=== PATIENT | male | born 1940 | race Caucasian/White ===

== ENCOUNTER → 2018-07-13 | Outpatient (CLI) | payer MEDICARE ==
[~2018-07-13] MED LIST: ASP81TEC PO; ATOR10TA PO; RAMI10CA PO
--- NOTE | 2018-07-13 13:06 | Diagnostic Imaging Report ---
INDICATION: Cough. TIME OF EXAM: 12:45 p.m. COMPARISON: Correlation is made with prior study from 11/16/2011. FINDINGS: Lungs are hyperinflated consistent with COPD. No infiltrates are seen. There is no effusion or pneumothorax. The heart size is normal. IMPRESSION: COPD. No acute feature is detected. Dictated by: Dictated on workstation # [id number]
== END ==
LOC: RAD 12:38
DX: J44.9 Chronic obstructive pulmonary disease, unspecified (principal)
CPT/HCPCS: 71046

== ENCOUNTER → 2018-07-20 | Outpatient (CLI) | payer MEDICARE | LOC: CARD 11:18 | PROVIDERS: ATTEND Internal Medicine Interventional Cardiology | DX: R42 Dizziness and giddiness (principal); R55 Syncope and collapse; R06.02 Shortness of breath; R07.89 Other chest pain; E78.5 Hyperlipidemia, unspecified; I10 Essential (primary) hypertension; Z72.0 Tobacco use | CPT/HCPCS: 93225; 93226 ==

== ENCOUNTER 2018-07-22 11:45 | Outpatient (RCR) | payer MEDICARE ==
[2018-08-27] MEDS ORDERED: ROSU40TA22 PO (10:05)
[2018-08-27] MEDS ORDERED: ETOD400T PO (10:05)
[2018-08-27] MEDS ORDERED: DIPH1TAB PO (10:05)
[2018-08-27] MEDS ORDERED: TEMA15CA PO (10:05)
[2018-08-27] MEDS ORDERED: HYDR-3820 PO (10:05)
[2018-08-27] MEDS ORDERED: CLOP75TA28 PO (10:05)
[2018-08-27] MEDS ORDERED: LISI40TA PO (10:05)
[2018-08-27] MEDS ORDERED: LOSA50TA63 PO (15:23)
[2018-08-28] MEDS ORDERED: METO-387 PO (11:39)
[2018-08-28] MEDS ORDERED: TICA90TA PO (11:39)
[2018-08-28] MEDS ORDERED: LOSA50TA63 PO (11:39)
[2018-08-28] MEDS ORDERED: ASPI-983 PO (11:39)
== END 2018-10-20 | disposition home or self-care (01) ==
LOC: CARD 11:45
PROVIDERS: ATTEND Internal Medicine Interventional Cardiology
DX: R06.02 Shortness of breath (principal); R07.89 Other chest pain; E78.5 Hyperlipidemia, unspecified; I10 Essential (primary) hypertension; R42 Dizziness and giddiness; R55 Syncope and collapse; Z72.0 Tobacco use

== ENCOUNTER → 2018-08-13 | Outpatient (CLI) | payer MEDICARE ==
[~2018-08-13] MED LIST changes: +CATHETER FLUSH 10 ML SYR IV PRN; +REGADENOSON 0.4 MG/5 ML SYR (LEXISCAN) IV ONE
[2018-08-13 09:26] VITALS: BP 199/95
--- NOTE | 2018-08-15 16:01 | Cardiology Stress Test Report ---
Stress Test Report Type of NM Stress Test: Test Type: LEXISCAN 0.4MG/5ML Date of Procedure/Referring: Date of Procedure: Aug 13, 2018 PCP Dayton Drake MD Admitting Physician Dex Covington MD Indications: Chest pressure, shortness of breath Baseline Heart Rate: 84 Baseline Blood Pressure: Blood Pressure Systolic: 199 Blood Pressure Diastolic: 95 Baseline EKG: Baseline EKG: sinus rhythm Summary & Conclusion: Summary: The patient was brought to the stress lab after informed consent was taken. Stress test was performed according to the Lexiscan protocol. 0.4 mg of IV Lexiscan was given. Low-grade exercise was performed. Baseline EKG showed sinus rhythm at 64 BPM. Initial blood pressure was 193/89 mmHg. Maximum heart rate was 84 bpm and blood pressure 172/84 mmHg. Patient did not have any ST segment changes during the stress test. Patient complained of shortness of breath and chest pain during Lexiscan infusion. 10.95 mCi of Myoview were given for rest imaging and 30.2 mCi of Myoview given for stress imaging. Transient ischemic dilatation score 1.16, EF 62 percent. Normal wall motion. Small apical reversible defect moderate intensity. fixed apical defect. Conclusion: Pharmacological stress test was negative for ischemia. Normal LV function with no wall motion abnormalities. Possible apical infarct with ulices-infarct ischemia. Dayton DRAKE MD Aug 15, 2018 16:01
== END ==
LOC: CARD 07:16
PROVIDERS: ATTEND Internal Medicine Interventional Cardiology
DX: I73.9 Peripheral vascular disease, unspecified (principal); R07.89 Other chest pain; R06.02 Shortness of breath; R55 Syncope and collapse; I65.21 Occlusion and stenosis of right carotid artery; I10 Essential (primary) hypertension; E78.5 Hyperlipidemia, unspecified; Z72.0 Tobacco use
CPT/HCPCS: 78452; 93017

== ENCOUNTER 2018-08-27 08:54 | Day surgery (SDC) | payer MEDICARE ==
[2018-08-27] VITALS (12 sets, daily range): BP systolic 160–187; BP diastolic 77–123
[~2018-08-27] VITALS: Ht 172.7 cm; Wt 72.6 kg
[~2018-08-27 08:54] MED LIST changes: -CATHETER FLUSH 10 ML SYR IV PRN; -REGADENOSON 0.4 MG/5 ML SYR (LEXISCAN) IV ONE
--- OUTSIDE RECORDS SUMMARY | 2018-08-27 08:59 | XMS REPORT | Continuity of Care Document ---
Author Author [facility] Organization [facility] Address Unknown Phone Unavailable Allergies Active Description Code Type Severity Reaction Onset Reported/Identified Relationship to Patient Clinical Status Yes No Known Drug Allergies [id number] Drug Allergy Unknown N/A 11/15/2011 Medications There is no data. 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, LUMBAR REG, W/OUT NEURO 07/17/2018 Dayton CASTILLO MD Ot R42 DIZZINESS AND GIDDINESS 07/17/2018 Dayton CASTILLO MD Ot R42 DIZZINESS AND GIDDINESS 07/17/2018 Dayton CASTILLO MD Ot R42 DIZZINESS AND GIDDINESS 07/19/2018 JOHN LARA MD Ot J44.9 CHRONIC OBSTRUCTIVE PULMONARY DISEASE, U 07/22/2018 Dayton CASTILLO MD Ot E78.5 HYPERLIPIDEMIA, UNSPECIFIED 07/22/2018 Dayton CASTILLO MD Ot I10 ESSENTIAL (PRIMARY) HYPERTENSION 07/22/2018 Dayton CASTILLO MD Ot R06.02 SHORTNESS OF BREATH 07/22/2018 Dayton CASTILLO MD Ot R07.89 OTHER CHEST PAIN 07/22/2018 Dayton CASTILLO MD Ot R42 DIZZINESS AND GIDDINESS 07/22/2018 Dayton CASTILLO MD Ot R55 SYNCOPE AND COLLAPSE 07/22/2018 Dayton CASTILLO MD Ot Z72.0 TOBACCO USE 07/22/2018 JOHN LARA MD Ot 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 07/22/2018 JOHN LARA MD Ot 793.7 NOSP (ABN) FINDINGS ON RADIOLOGICAL OT 07/22/2018 JOHN LARA MD Ot 401.9 HYPERTENSION NOS 07/22/2018 JOHN LARA MD Ot 433.10 CAROTID ARTERY OCCLUSION W O CEREBRAL IN 07/22/2018 JOHN LARA MD Ot 440.21 ATHEROSCL [place] ARTER EXTREM W INTERMIT 07/22/2018 JOHN LARA MD Ot 729.5 PAIN IN LIMB 07/22/2018 JOHN LARA MD Ot 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, LUMBAR REG, W/OUT NEURO 07/22/2018 JOHN LARA MD Ot J44.9 CHRONIC OBSTRUCTIVE PULMONARY DISEASE, U 07/22/2018 Dayton CASTILLO MD Ot E78.5 HYPERLIPIDEMIA, UNSPECIFIED 07/22/2018 Dayton CASTILLO MD Ot I10 ESSENTIAL (PRIMARY) HYPERTENSION 07/22/2018 Dayton CASTILLO MD Ot R06.02 SHORTNESS OF BREATH 07/22/2018 Dayton CASTILLO MD Ot R07.89 OTHER CHEST PAIN 07/22/2018 Dayton CASTILLO MD Ot R42 DIZZINESS AND GIDDINESS 07/22/2018 Dayton CASTILLO MD Ot R55 SYNCOPE AND COLLAPSE 07/22/2018 Dayton CASTILLO MD Ot Z72.0 TOBACCO USE 08/04/2018 JOHN LARA MD Ot J44.9 CHRONIC OBSTRUCTIVE PULMONARY DISEASE, U 08/14/2018 JOHN LARA MD Ot J44.9 CHRONIC OBSTRUCTIVE PULMONARY DISEASE, U 08/14/2018 Dayton CASTILLO MD Ot E78.5 HYPERLIPIDEMIA, UNSPECIFIED 08/14/2018 Dayton CASTILLO MD Ot I10 ESSENTIAL (PRIMARY) HYPERTENSION 08/14/2018 Dayotn CASTILLO MD Ot R06.02 SHORTNESS OF BREATH 08/14/2018 Dayton CASTILLO MD Ot R07.89 OTHER CHEST PAIN 08/14/2018 Dayton CASTILLO MD Ot R42 DIZZINESS AND GIDDINESS 08/14/2018 Dayton CASTILLO MD Ot R55 SYNCOPE AND COLLAPSE 08/14/2018 Dayton CASTILLO MD Ot Z72.0 TOBACCO USE 08/19/2018 Dayton CASTILLO MD Ot E78.5 HYPERLIPIDEMIA, UNSPECIFIED 08/19/2018 Dayton CASTILLO MD Ot I10 ESSENTIAL (PRIMARY) HYPERTENSION 08/19/2018 Dayton CASTILLO MD Ot 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 08/19/2018 Dayton CASTILLO MD Ot I73.9 PERIPHERAL VASCULAR DISEASE, UNSPECIFIED 08/19/2018 Dayton CASTILLO MD Ot R06.02 SHORTNESS OF BREATH 08/19/2018 Dayton CASTILLO MD Ot R07.89 OTHER CHEST PAIN 08/19/2018 Dayton CASTILLO MD Ot R55 SYNCOPE AND COLLAPSE 08/19/2018 Dayton CASTILLO MD Ot Z72.0 TOBACCO USE 08/19/2018 Dayton CASTILLO MD Ot E78.5 HYPERLIPIDEMIA, UNSPECIFIED 08/19/2018 Dayton CASTILLO MD Ot I10 ESSENTIAL (PRIMARY) HYPERTENSION 08/19/2018 Dayton CASTILLO MD Ot R06.02 SHORTNESS OF BREATH 08/19/2018 Dayton CASTILLO MD Ot R07.89 OTHER CHEST PAIN 08/19/2018 Dayton CASTILLO MD Ot R42 DIZZINESS AND GIDDINESS 08/19/2018 Dayton CASTILLO MD Ot R55 SYNCOPE AND COLLAPSE 08/19/2018 Dyaton CASTILLO MD Ot Z72.0 TOBACCO USE Procedures There is no data. Results There is no data. Encounters ACCT No. Visit Date/Time Discharge Status Pt. Type Provider Facility Loc./Unit Complaint [id number] 08/13/2018 07:16:00 08/13/2018 23:59:59 CLS Outpatient Dayton CASTILLO MD [facility] CARD CHEST PRESSURE,SOB, SYNCOPE,HTN [id number] 07/22/2018 11:45:00 07/22/2018 23:59:59 CLS Outpatient Dayton CASTILLO MD [facility] CARD SYNCOPE,DIZZINESS [id number] 07/20/2018 11:18:00 07/20/2018 23:59:59 CLS Outpatient Dayton CASTILLO MD [facility] CARD DIZZINESS,SYNCOPE [id number] 07/15/2018 09:11:00 07/15/2018 23:59:59 CLS Preadmit Dayton CASTILLO MD [facility] CARD SOB,CHEST PRESSURE,HTN [id number] 07/15/2018 09:09:00 07/15/2018 23:59:59 CLS Preadmit Dayton CASTILLO MD [facility] RAD CLAUDICATION [id number] 07/15/2018 09:08:00 07/15/2018 23:59:59 CLS Preadmit Dayton CASTILLO MD [facility] RAD CLAUDICATION [id number] 07/13/2018 12:38:00 07/13/2018 23:59:59 CLS Outpatient JOHN LARA MD [facility] RAD COUGH R05 [id number] 01/07/2014 09:09:00 01/07/2014 23:59:59 CLS Outpatient JOHN LARA MD [facility] RAD LOW BACK PAIN [id number] 10/26/2013 09:59:00 10/26/2013 23:59:59 CLS Outpatient JOHN LARA MD [facility] RAD HTN,BILAT LEG PAIN [id number] 09/14/2013 08:44:00 09/14/2013 23:59:59 CLS Outpatient JOHN LARA MD [facility] RAD COLON CA [id number] 07/16/2013 16:56:00 07/16/2013 23:59:59 CLS Outpatient [id number] 08/27/2018 11:00:00 PEN Preadmit JONATHAN FARRELL, Dayton LAWLER [facility] CATH CHEST PAIN,ABN NUCLEAR STRESS TEST
[2018-08-27] MEDS ORDERED: HEParin 1000 UNIT/ML (10ML VIAL) FOR BOLUS ONE ×2 (09:00→11:34)
[2018-08-27] MEDS ORDERED: LIDOCAINE 1% INJ 20 ML 20 ML VIAL ONE (09:00)
[2018-08-27] MEDS ORDERED: NS IV 1000 ML 3,000 ML ONE (09:00)
[2018-08-27] MEDS ORDERED: NS IV 1000 ML 1,000 ML IV SCH (09:03)
[2018-08-27 09:26] LABS: HEMOGLOBIN 12.7 G/DL (13.3-17.7); MEAN PLATELET VOLUME 9.1 FL (7.4-10.4); RED CELL DISTRIBUTION WIDTH 15.7 % (10.0-14.5); WHITE BLOOD COUNT 7.4 10^3/uL (4.3-11.0)
[2018-08-27 09:46] LABS: INR 0.9 (0.8-1.4); PROTHROMBIN TIME PATIENT 12.9 SEC (12.2-14.7)
[2018-08-27 09:52] LABS: ALBUMIN 4.1 GM/DL (3.2-4.5); BILIRUBIN,TOTAL 0.5 MG/DL (0.1-1.0); CALCIUM 9.5 MG/DL (8.5-10.1); CREATININE SERUM 1.34 MG/DL (0.60-1.30); POTASSIUM 4.4 MMOL/L (3.6-5.0); TOTAL PROTEIN 7.2 GM/DL (6.4-8.2)
[2018-08-27] MEDS ORDERED: HYDR-3820 PO (10:05)
[2018-08-27] MEDS ORDERED: DIPH1TAB PO (10:05)
[2018-08-27] MEDS ORDERED: TEMA15CA PO (10:05)
[2018-08-27] MEDS ORDERED: fentaNYL INJECTION 100 MCG/2 ML AMP ONE (10:05)
[2018-08-27] MEDS ORDERED: MIDAZOLAM 5 MG/5 ML (VERSED) VIAL ONE (10:05)
[2018-08-27] MEDS ORDERED: CLOP75TA28 PO (10:05)
[2018-08-27] MEDS ORDERED: ROSU40TA22 PO (10:05)
[2018-08-27] MEDS ORDERED: LISI40TA PO (10:05)
[2018-08-27] MEDS ORDERED: ETOD400T PO (10:05)
[2018-08-27] MEDS ORDERED: ADENOSINE 3 MG/1 ML (ADENOSCAN) 30ML VIAL IV ONE ×2 (10:58→11:13)
[2018-08-27] MEDS ORDERED: TICAGRELOR 90 MG TABLET (BRILINTA) PO ONE (11:31)
[2018-08-27] MEDS ORDERED: NITRO DRIP 25000 MCG/D5W 250 ML IV ONE (11:33)
--- NOTE | 2018-08-27 12:11 | Cardiac Procedure Note-CS/ASA ---
Pre-Procedure Note Pre-Op Procedure Note H&P Reviewed The H&P was reviewed, patient examined and no changes noted. Date H&P Reviewed: Aug 27, 2018 Time H&P Reviewed: 10:00 Conscious Sedation Pre-Proced Time 10:00 ASA Score 3 For ASA 3 and 4: Consider anesthesia and medical clearance. Also, for patients with a history of failed moderate sedation consider anesthesia. Airway Lungs Heart ASA score ASA 1: a normal healthy patient ASA 2: a patient with a mild systemic disease (mid diabetes, controlled hypertension, obesity ASA 3: a patient with a severe systemic disease that limits activity (angina , COPD, prior Myocardial infarction) ASA 4: a patient with an incapacitating disease that is a constant threat to life (CHF, renal failure) ASA 5: a moribund patient not expected to survive 24 hrs. (ruptured aneurysm) ASA 6: a declared brain- patient whose organs are being harvested. For emergent operations, add the letter E after the classification Mallampati Classification Grade 1 Sedation Plan Analgesia, Amnesia, Plan communicated to team members, Discussed options with patient/fam, Discussed risks with patient/fam The patient is an appropriate candidate to undergo the planned procedure, sedation, and anesthesia. The patient immediately re-assessed prior to indication. Dayton CASTILLO MD Aug 27, 2018 12:11
[2018-08-27] MEDS ORDERED: PATIENT MAY USE OWN MEDS, ALL PO SCH (12:15)
--- NOTE | 2018-08-27 12:20 | Coronary Angiography & PCI ---
Coronary Angiography & PCI DATE OF PROCEDURE: 08/27/18 INDICATION: Chest pain, abnormal nuclear stress test. PREOPERATIVE DIAGNOSIS: Chest pain, abnormal nuclear stress test. POSTOPERATIVE DIAGNOSIS: Severe mid LAD disease, successful PCI with drug-eluting stent. Mild to moderate PAD. HISTORY: This is a 78-year-old gentleman with history of mild to moderate carotid disease and possible right iliac/femoral artery stenosis. He presented with chest pain and nuclear stress test showed evidence of apical ischemia. Therefore, the patient was scheduled for coronary angiography. 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 PROCEDURES PERFORMED: 1.Coronary angiography. 2.Left heart catheterization. 3.FFR to mid LAD. 4. FFR to RCA. 5. PCI to the mid LAD with drug-eluting stent. 6. Abdominal aortogram with bilateral lower extremity runoff. COMPLICATIONS: None. SPECIMENS: None. ESTIMATED BLOOD LOSS: 10 mL ANESTHESIA: Conscious sedation ANTICOAGULATION: IV heparin CONTRAST: 114 mL. FLUOROSCOPY: 15.3 minutes. FLOUROSCOPY DOSE: 587 mgy. PROCEDURE DETAILS: The patient is a 78 male and was brought to the catheter builder after informed consent was taken. All the risks and complications were explained in detail; this included the risk of bleeding, vascular damage, stroke , ME and even . The patient was draped and prepped in the usual sterile fashion. Geronimo's test was abnormal therefore access was gained in the right femoral artery with a 5 Welsh sheath. We had moderate difficulty advancing a J -tipped wire. We exchanged for a storq wire. Therefore we decided to do an abdominal aortogram with bilateral lower extremity runoff. Coronary angiography and left heart catheterization with a JR4 and a JL4 catheter. Abdominal aortogram and bilateral lower extremity runoff was performed with a pigtail catheter. FINDINGS: 1.Left main: Short left main with no significant stenosis. 2.LAD: Moderate to severe mid LAD stenosis. Stenosis severity 70-80 percent. 3.Left circumflex artery: Mild diffuse disease. 4.RCA: Diffuse at least moderate disease in the proximal and mid section of the RCA. In the midsegment of the RCA the lesion looks moderate to severe with stenosis severity of 70 percent. Dominant artery. 5.Left heart catheterization: LV pressure 157/1 mmHg. LVEDP 11 mmHg. Aortic pressure 146/65 mmHg. Normal LV function with no wall motion abnormalities. No gradient across the aortic valve. 6. Abdominal aortogram and bilateral lower extremity runoff: Mild diffuse disease in the abdominal aorta. Nonselective angiogram of the renal arteries show no significant disease. Tortuous right common iliac artery with calcification and mild disease. Stenosis severity 30 percent with gradient of 5 mmHg. Mild disease in the mid right SFA. Moderate disease in the distal left SFA. RECOMMENDATIONS: FFR to the mid LAD. FFR to proximal/mid RCA. PCI to mid LAD. INTERVENTION DETAILS: We used the 5 Welsh diagnostic JL4 for the FFR to the mid LAD. The lesion in the mid LAD was crossed with the FFR wire. Heparin was given for anticoagulation. ACT was done once which was 200 seconds. Baseline FFR was 0.91. Adenosine was given as an infusion at 140 g per KG per minute. Lowest FFR was 0.76. Post-angiogram did not show any complication. We upgraded to a 6 Welsh sheath. 6 Welsh JR4 guide catheter for FFR to the RCA. The lesion in the proximal/mid RCA was crossed with a FFR wire and the tip of the FFR wire was placed in the distal RCA. Adenosine was given as an infusion at 140 g per KG per minute. Lowest FFR was 0.86. Post-angiogram did not show any complication. Since this FFR is acceptable therefore PCI was deferred. We then took a JR4 6 Welsh guide catheter and BMW wire. The lesion in the mid LAD was crossed with the BMW wire and direct stenting was done with a 2.5 x 33 millimeter Xience Ellen BLANCA at 14 andrew for 30 seconds. Excellent post angiographic results. Mild pinching off a diagonal artery noted. However SONIA- 3 flow with no EKG changes and no chest pain therefore left alone. The wire was taken out and post-angiogram revealed no residual stenosis and SONIA-3 flow. The right femoral artery was closed with a minx device. CONCLUSIONS: 1. Severe mid LAD stenosis treated successfully with a drug-eluting stent. 2. At least moderate diffuse disease in the RCA with negative FFR therefore PCI was deferred. 3. Dual antiplatelet therapy, aggressive secondary prevention measures. 4. [id number] bilateral PAD. Diane Drake MD, FACP, FACC, [facility] Interventional Cardiology Dayton DRAKE MD Aug 27, 2018 12:20 pm
[2018-08-27] MEDS ORDERED: LOSA50TA63 PO (15:23)
[2018-08-27] MEDS ORDERED: ATROPINE PO PRN (15:30)
[2018-08-27] MEDS ORDERED: DIPHENOXYLATE HCL PO PRN (15:30)
[2018-08-27] MEDS ORDERED: amLODIPine 5 MG (NORVASC) TAB PO NR (15:39)
[2018-08-27] MEDS: NS IV 1000 ML 1,000 ML IV SCH ×2 (15:44→18:20)
[2018-08-27] MEDS ORDERED: TEMAZEPAM 15 MG (RESTORIL) CAP PO PRN (16:00)
[2018-08-27] MEDS ORDERED: LOSARTAN 50 MG (COZAAR) TAB PO ONE (21:15)
[2018-08-27] MEDS: TICAGRELOR 90 MG TABLET (BRILINTA) PO SCH (21:40)
[2018-08-28] VITALS: BP 179/98
[2018-08-28 01:00] VITALS: BP 168/87
[2018-08-28 02:00] VITALS: BP 176/90
[2018-08-28 04:00] VITALS: BP 160/89
[2018-08-28 04:21] LABS: HEMOGLOBIN 11.6 G/DL (13.3-17.7); MEAN PLATELET VOLUME 9.8 FL (7.4-10.4); RED CELL DISTRIBUTION WIDTH 15.4 % (10.0-14.5); WHITE BLOOD COUNT 8.5 10^3/uL (4.3-11.0)
[2018-08-28 04:36] LABS: BUN/CREATININE RATIO 15; CALCIUM 8.6 MG/DL (8.5-10.1); CARBON DIOXIDE 22 MMOL/L (21-32); CHLORIDE 104 MMOL/L (98-107); CREATININE SERUM 1.14 MG/DL (0.60-1.30); GFR ESTIMATED > 60; GLUCOSE 87 MG/DL (70-105); POTASSIUM 4.5 MMOL/L (3.6-5.0); SODIUM 136 MMOL/L (135-145)
[2018-08-28] MEDS: TICAGRELOR 90 MG TABLET (BRILINTA) PO SCH (08:18)
[2018-08-28] MEDS: NS IV 1000 ML 1,000 ML IV SCH (08:31)
[2018-08-28] MEDS ORDERED: ROSUVASTATIN 40MG TABLET PO SCH (09:00)
[2018-08-28] MEDS ORDERED: ASPIRIN E.C. 81 MG (ECOTRIN) TAB PO SCH (09:00)
[2018-08-28] MEDS ORDERED: LOSARTAN 50 MG (COZAAR) TAB PO SCH (09:00)
--- NOTE | 2018-08-28 11:36 | Cardiology Discharge Summary ---
Diagnosis/Chief Complaint Date of Admission 08/27/2018 Date of Discharge 08/28/2018 Admission Diagnosis Chest pain, abnormal nuclear stress test, possible PAD Final/Discharge Diagnosis Severe LAD stenosis, successful PCI with drug-eluting stent. [id number] PAD Chief Complaint/HPI Chief Complaint/HPI This is a 78-year-old gentleman with history of mild carotid disease and possible stenosis in the right femoral/iliac artery. He presented with chest pain and a stress test showed evidence of apical ischemia. Coronary angiography was recommended. Discharge Summary Procedures Coronary angiography showed moderate to severe stenosis in the mid RCA and moderate to severe stenosis in the mid LAD. FFR in the LAD was 0.76 therefore drug-eluting stent Xience Alpine 2.25 x 33 mm was placed at 14 andrew. Excellent results. FFR of mid RCA was 0.86 therefore PCI was deferred. Peripheral angiogram showed mild disease in the right external iliac artery with tortuosity. Moderate disease in the distal left SFA. Discharge Physical Examination Stable. Hospital Course Was the Problem List Reviewed?: Yes Elevated blood pressure, increase dose of losartan and one-time dose of amlodipine given. Discussion & Recommendations Discussion Discharge instructions discussed at length with the patient and . The procedure and the results were also discussed at length. Medical compliance was recommended with dual antiplatelet therapy. Discharge took over 30 minutes to complete. Will increase her dose of losartan 200 mg daily and add low dose beta manuel. Patient will continue on aspirin, Brilinta and Crestor. Follow up appt.: Dr. Drake in 2-3 weeks. Dicharge Diet: Cardiac Diet Activity as Tolerated: Yes Home Medications Reviewed patient Home Medication Reconciliation performed by pharmacy medication reconciliations instrumentation technician and/or nursing. Patients Allergies have been reviewed. Discharge Home Medications: Reviewed and agree with Discharge Medication list on patient's Discharge Instruction sheet Condition at discharge Stable. Instructions to patient/family Discussed at length. Dayton DRAKE MD Aug 28, 2018 11:36
[2018-08-28] MEDS ORDERED: TICA90TA PO (11:39)
[2018-08-28] MEDS ORDERED: ASPI-983 PO (11:39)
[2018-08-28] MEDS ORDERED: METO-387 PO (11:39)
[2018-08-28] MEDS ORDERED: LOSA50TA63 PO (11:39)
--- NOTE | 2018-08-28 11:40 | Discharge Inst-Post CATH ---
Discharge Inst-CATH/EP Post Cardiac Cath/EP D/C Inst Follow Up/Plan Dr. Drake in 3-4 weeks. CARDIAC CATH DISCHARGE INSTRUCTIONS *Hold Metformin for 48 hours post heart cath. ACTIVITY * Go Home directly and rest. * Limit activity of the leg (or wrist if it was used) for 7 days including aerobics, swimming, jogging, bicycling, etc. * Restrict stair-climbing for 7 days if possible, if not, climb up with your non -cath leg, then bring together on the same step. * Avoid lifting, pushing, pulling or excessive movement of the affected extremity for 7 days. * Customary sexual activity may be resumed after 2 days-use caution not to use a position that strains or causes pain to the affected extremity. * No driving for 24 hours. * NO SMOKING. * Avoid straining for bowel movements for 7 days. * Gentle walking on level ground is allowed. * Returning to work will depend on the type of procedure and the results. Your doctor will discuss this with you. CALL YOUR DOCTOR FOR ANY OF THE FOLLOWING: *If bleeding from the puncture site occurs- Apply gentle pressure to site with clean cloth and call your doctor or EMS. * If a knot or lump forms under the skin, increases in size, or causes pain. * If bruising appears to be worsening or moving further down your leg instead of disappearing. * Temperature above 101 F. CARE OF YOUR GROIN INCISION; * Bruising or purple discoloration of the skin near the puncture site is common. * You may shower only, no bathtub bathing for 5 days. Be careful to avoid slipping as your leg may feel stiff. * If a closure device was used on your femoral artery, please see the attached guide regarding care of the device and your leg. * Leave the dressing on, until removed by office staff. CARE OF YOUR WRIST INCISION; * Bruising or purple discoloration of the skin near the puncture site is common. * You may shower. * DO NOT submerge wrist. * Leave dressing on, until removed by office staff.. Dayton DRAKE MD Aug 28, 2018 11:40
[2018-08-29] MEDS ORDERED: LOSARTAN 100 MG (COZAAR) TABLET PO SCH (09:00)
== END 2018-08-28 11:53 | disposition home or self-care (01) ==
LOC: CATH 08:54 → ICU 12:28 → CATH 08-28 11:53
PROVIDERS: ATTEND Internal Medicine Interventional Cardiology
DX: I25.10 Atherosclerotic heart disease of native coronary artery without angina pectoris (principal); I70.213 Atherosclerosis of native arteries of extremities with intermittent claudication, bilateral legs; I70.0 Atherosclerosis of aorta; I10 Essential (primary) hypertension; E78.5 Hyperlipidemia, unspecified; I65.21 Occlusion and stenosis of right carotid artery; F17.210 Nicotine dependence, cigarettes, uncomplicated; R55 Syncope and collapse; R42 Dizziness and giddiness; R05 Cough; Z86.73 Personal history of transient ischemic attack (TIA), and cerebral infarction without residual deficits; Z79.02 Long term (current) use of antithrombotics/antiplatelets; Z79.82 Long term (current) use of aspirin; Z79.899 Other long term (current) drug therapy
CPT/HCPCS: 36415; 80048; 80053; 85027; 85347; 85610; 85730; 87081; 93005; 93458

== ENCOUNTER 2018-09-21 10:12 | Emergency (ER) | payer MEDICARE ==
[~2018-09-21] VITALS: Ht 172.7 cm; Wt 72.6 kg
[~2018-09-21 10:12] MED LIST changes: +ASPI-983 PO; +CLOP75TA28 PO; +DIPH1TAB PO; +ETOD400T PO; +HYDR-3820 PO; +LISI40TA PO; +LOSA50TA63 PO; +METO-387 PO; +ROSU40TA22 PO; +TEMA15CA PO; +TICA90TA PO
--- OUTSIDE RECORDS SUMMARY | 2018-09-21 10:35 | XMS REPORT | Continuity of Care Document ---
Author Organization Unknown Address Unknown Allergies Active Description Code Type Severity Reaction Onset Reported/Identified Relationship to Patient Clinical Status Yes No Known Drug Allergies [id number] Drug Allergy Unknown N/A 11/15/2011 Medications There is no data. 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, LUMBAR REG, W/OUT NEURO 07/17/2018 Dayton CASTILLO MD Ot R42 DIZZINESS AND GIDDINESS 07/17/2018 Dayton CASTILLO MD Ot R42 DIZZINESS AND GIDDINESS 07/17/2018 Dayton CASTILLO MD, Ot R42 DIZZINESS AND GIDDINESS 07/19/2018 JOHN LARA MD Ot J44.9 CHRONIC OBSTRUCTIVE PULMONARY DISEASE, U 07/22/2018 Dayton CASTILLO MD Ot E78.5 HYPERLIPIDEMIA, UNSPECIFIED 07/22/2018 Dayton CASTILLO MD Ot I10 ESSENTIAL (PRIMARY) HYPERTENSION 07/22/2018 Dayton CASTILLO MD Ot R06.02 SHORTNESS OF BREATH 07/22/2018 Dayton CASTILLO MD Ot R07.89 OTHER CHEST PAIN 07/22/2018 Dayton CASTILLO MD Ot R42 DIZZINESS AND GIDDINESS 07/22/2018 Dayton CASTILLO MD, Ot R55 SYNCOPE AND COLLAPSE 07/22/2018 Dayton CASTILLO MD, Ot Z72.0 TOBACCO USE 07/22/2018 JANE FARRELL, JOHN Pedraza Ot 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 07/22/2018 JOHN LARA MD Ot 793.7 NOSP (ABN) FINDINGS ON RADIOLOGICAL OT 07/22/2018 JOHN LARA MD Ot 401.9 HYPERTENSION NOS 07/22/2018 JANE FARRELL, JOHN Pedraza Ot 433.10 CAROTID ARTERY OCCLUSION W O CEREBRAL IN 07/22/2018 JOHN LARA MD Ot 440.21 ATHEROSCL [place] ARTER EXTREM W INTERMIT 07/22/2018 JOHN LARA [...] MD Ot I10 ESSENTIAL (PRIMARY) HYPERTENSION 08/14/2018 Dayton CASTILLO MD Ot R06.02 SHORTNESS OF BREATH 08/14/2018 JONATHAN FARRELL, Dayton LAWLER Ot R07.89 OTHER CHEST PAIN 08/14/2018 Dayton CASTILLO MD Ot R42 DIZZINESS AND GIDDINESS 08/14/2018 Dayton CASTILLO MD Ot R55 SYNCOPE AND COLLAPSE 08/14/2018 Dayton CASTILLO MD Ot Z72.0 TOBACCO USE 08/19/2018 Dayton CASTILLO MD Ot E78.5 HYPERLIPIDEMIA, UNSPECIFIED 08/19/2018 Dayton CASTILLO MD Ot I10 ESSENTIAL (PRIMARY) HYPERTENSION 08/19/2018 Dayton CASTILLO MD Ot 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 08/19/2018 Dyaton CASTILLO MD Ot I73.9 PERIPHERAL VASCULAR DISEASE, [...] Dayton CASTILLO MD Ot Z72.0 TOBACCO USE 08/27/2018 JOHN LARA MD Ot 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 08/27/2018 JOHN LARA MD Ot 793.7 NOSP (ABN) FINDINGS ON RADIOLOGICAL OT 08/27/2018 JOHN LARA MD Ot 401.9 HYPERTENSION NOS 08/27/2018 JOHN LARA MD Ot 433.10 CAROTID ARTERY OCCLUSION W O CEREBRAL IN 08/27/2018 JOHN LARA MD Ot 440.21 ATHEROSCL [place] ARTER EXTREM W INTERMIT 08/27/2018 JOHN LARA MD Ot 729.5 PAIN IN LIMB 08/27/2018 JOHN LARA MD Ot 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, LUMBAR REG, W/OUT NEURO 08/27/2018 JOHN LARA MD Ot J44.9 CHRONIC OBSTRUCTIVE PULMONARY DISEASE, U 08/27/2018 Dayton CASTILLO MD Ot E78.5 HYPERLIPIDEMIA, UNSPECIFIED 08/27/2018 Dayton CASTILLO MD Ot I10 ESSENTIAL (PRIMARY) HYPERTENSION 08/27/2018 Dayton CASTILLO MD Ot 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 08/27/2018 Dayton CASTILLO MD Ot I73.9 PERIPHERAL VASCULAR DISEASE, UNSPECIFIED 08/27/2018 Dayton CASTILLO MD Ot R06.02 SHORTNESS OF BREATH 08/27/2018 Dayton CASTILLO MD Ot R07.89 OTHER CHEST PAIN 08/27/2018 Dayton CASTILLO MD Ot R55 SYNCOPE AND COLLAPSE 08/27/2018 Dayton CASTILLO MD Ot Z72.0 TOBACCO USE 08/27/2018 Dayton CASTILLO MD Ot E78.5 HYPERLIPIDEMIA, UNSPECIFIED 08/27/2018 Dayton CASTILLO MD Ot I10 ESSENTIAL (PRIMARY) HYPERTENSION 08/27/2018 Dayton CASTILLO MD Ot R06.02 SHORTNESS OF BREATH 08/27/2018 Dayton CASTILLO MD Ot R07.89 OTHER CHEST PAIN 08/27/2018 Dayton CASTILLO MD Ot R42 DIZZINESS AND GIDDINESS 08/27/2018 Dayton CASTILLO MD Ot R55 SYNCOPE AND COLLAPSE 08/27/2018 Dayton CASTILLO MD Ot Z72.0 TOBACCO USE 08/27/2018 Dayton CASTILLO MD Ot E78.5 HYPERLIPIDEMIA, UNSPECIFIED 08/27/2018 Dayton CASTILLO MD Ot I10 ESSENTIAL (PRIMARY) HYPERTENSION 08/27/2018 Dayton CASTILLO MD Ot R06.02 SHORTNESS OF BREATH 08/27/2018 Dayton CASTILLO MD Ot R07.89 OTHER CHEST PAIN 08/27/2018 Dayton CASTILLO MD Ot R42 DIZZINESS AND GIDDINESS 08/27/2018 Dayton CASTILLO MD Ot R55 SYNCOPE AND COLLAPSE 08/27/2018 Dayton CASTILLO MD Ot Z72.0 TOBACCO USE 08/28/2018 Dayton CASTILLO MD Ot E78.5 HYPERLIPIDEMIA, UNSPECIFIED 08/28/2018 Dayton CASTILLO MD Ot F17.210 NICOTINE DEPENDENCE, CIGARETTES, UNCOMPL 08/28/2018 Dayton CASTILLO MD Ot I10 ESSENTIAL (PRIMARY) HYPERTENSION 08/28/2018 Dayton CASTILLO MD Ot I25.10 ATHSCL HEART DISEASE OF [place] CORONARY 08/28/2018 Dayton CASTILLO MD Ot 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 08/28/2018 Dayton CASTILLO MD Ot I70.0 ATHEROSCLEROSIS OF [place] 08/28/2018 Dayton CASTILLO MD Ot I70.213 ATHSCL [place] ARTERIES OF EXTRM W INTRMT 08/28/2018 Dayton CASTILLO MD Ot R05 COUGH 08/28/2018 Dayton CASTILLO MD Ot R42 DIZZINESS AND GIDDINESS 08/28/2018 Dayton CASTILLO MD Ot R55 SYNCOPE AND COLLAPSE 08/28/2018 Dayton CASTILLO MD Ot Z79.02 ASSISTED (CURRENT) USE OF ANTITHROMBOTI 08/28/2018 Dayton CASTILLO MD Ot Z79.82 REGISTRATION REPRESENTATIVE (CURRENT) USE OF ASPIRIN 08/28/2018 Dayton CASTILLO MD, Ot Z79.899 OTHER REGISTRATION REPRESENTATIVE (CURRENT) DRUG THERAPY 08/28/2018 Dayton CASTILLO MD Ot Z86.73 PRSNL HX OF TIA (TIA), AND CEREB INFRC W 08/28/2018 Dayton CASTILLO MD Ot E78.5 HYPERLIPIDEMIA, UNSPECIFIED 08/28/2018 Dayton CASTILLO MD Ot F17.210 NICOTINE DEPENDENCE, CIGARETTES, UNCOMPL 08/28/2018 Dayton CASTILLO MD Ot I10 ESSENTIAL (PRIMARY) HYPERTENSION 08/28/2018 Dayton CASTILLO MD Ot I25.10 ATHSCL HEART DISEASE OF [place] CORONARY 08/28/2018 Dayton CASTILLO MD Ot 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 08/28/2018 Dayton CASTILLO MD Ot I70.0 ATHEROSCLEROSIS OF [place] 08/28/2018 Dayton CASTILLO MD Ot I70.213 ATHSCL [place] ARTERIES OF EXTRM W INTRMT 08/28/2018 Dayton CASTILLO MD Ot R05 COUGH 08/28/2018 Dayton CASTILLO MD Ot R42 DIZZINESS AND GIDDINESS 08/28/2018 Dayton CASTILLO MD Ot R55 SYNCOPE AND COLLAPSE 08/28/2018 Dayton CASTILLO MD Ot Z79.02 REGISTRATION REPRESENTATIVE (CURRENT) USE OF ANTITHROMBOTI 08/28/2018 Dayton CASTILLO MD Ot Z79.82 REGISTRATION REPRESENTATIVE (CURRENT) USE OF ASPIRIN 08/28/2018 Dayton CASTILLO MD Ot Z79.899 OTHER REGISTRATION REPRESENTATIVE (CURRENT) DRUG THERAPY 08/28/2018 Dayton CASTILLO MD Ot Z86.73 PRSNL HX OF TIA (TIA), AND CEREB INFRC W 09/02/2018 Dayton CASTILLO MD Ot E78.5 HYPERLIPIDEMIA, UNSPECIFIED 09/02/2018 Dayton CASTILLO MD Ot I10 ESSENTIAL (PRIMARY) HYPERTENSION 09/02/2018 Dayton CASTILLO MD Ot 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 09/02/2018 Dayton CASTILLO MD Ot I73.9 PERIPHERAL VASCULAR DISEASE, UNSPECIFIED 09/02/2018 Dayton CASTILLO MD Ot R06.02 SHORTNESS OF BREATH 09/02/2018 Dayton CASTILLO MD Ot R07.89 OTHER CHEST PAIN 09/02/2018 Dayton CASTILLO MD Ot R55 SYNCOPE AND COLLAPSE 09/02/2018 Dayton CASTILLO MD Ot Z72.0 TOBACCO USE 09/11/2018 Dayton CASTILLO MD Ot E78.5 HYPERLIPIDEMIA, UNSPECIFIED 09/11/2018 Dayton CASTILLO MD Ot I10 ESSENTIAL (PRIMARY) HYPERTENSION 09/11/2018 Dayton CASTILLO MD Ot 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 Results Test Result Range Automated blood complete blood count (hemogram) panel - 08/27/18 09:00 Blood leukocytes automated count (number/volume) 7.4 10*3/uL 4.3-11.0 Blood erythrocytes automated count (number/volume) 4.11 10*6/uL 4.35-5.85 Venous blood hemoglobin measurement (mass/volume) 12.7 g/dL 13.3-17.7 Blood hematocrit (volume fraction) 38 % 40-54 Automated erythrocyte mean corpuscular volume 93 [foz_us] 80-99 Automated erythrocyte mean corpuscular hemoglobin (mass per erythrocyte) 31 pg 25-34 Automated erythrocyte mean corpuscular hemoglobin concentration measurement ( mass/volume) 33 g/dL 32-36 Automated erythrocyte distribution width ratio 15.7 % 10.0-14.5 Automated blood platelet count (count/volume) 195 10*3/uL 130-400 Automated blood platelet mean volume measurement 9.1 [foz_us] 7.4-10.4 PT panel in platelet poor plasma by coagulation assay - 08/27/18 09:00 Prothrombin time (PT) in platelet poor plasma by coagulation assay 12.9 s 12.2-14.7 INR in platelet poor plasma or blood by coagulation assay 0.9 0.8-1.4 Activated partial thromboplastin time (aPTT) in platelet poor plasma bycoagulation assay - 08/27/18 09:00 Activated partial thromboplastin time (aPTT) in platelet poor plasma bycoagulation assay 28 s 24-35 Comprehensive metabolic panel - 08/27/18 09:00 Serum or plasma sodium measurement (moles/volume) 138 mmol/L 135-145 Serum or plasma potassium measurement (moles/volume) 4.4 mmol/L 3.6-5.0 Serum or plasma chloride measurement (moles/volume) 104 mmol/L 98-107 Carbon dioxide 28 mmol/L 21-32 Serum or plasma anion gap determination (moles/volume) 6 mmol/L 5-14 Serum or plasma urea nitrogen measurement (mass/volume) 19 mg/dL 7-18 Serum or plasma creatinine measurement (mass/volume) 1.34 mg/dL 0.60-1.30 Serum or plasma urea nitrogen/creatinine mass ratio 14 NRG Serum or plasma creatinine measurement with calculation of estimated glomerular filtration rate 52 NRG Serum or plasma glucose measurement (mass/volume) 94 mg/dL 70-105 Serum or plasma calcium measurement (mass/volume) 9.5 mg/dL 8.5-10.1 Serum or plasma total bilirubin measurement (mass/volume) 0.5 mg/dL 0.1-1.0 Serum or plasma alkaline phosphatase measurement (enzymatic activity/volume) 99 U/L 40-136 Serum or plasma aspartate aminotransferase measurement (enzymatic activity/ volume) 22 U/L 5-34 Serum or plasma alanine aminotransferase measurement (enzymatic activity/volume ) 19 U/L 0-55 Serum or plasma protein measurement (mass/volume) 7.2 g/dL 6.4-8.2 Serum or plasma albumin measurement (mass/volume) 4.1 g/dL 3.2-4.5 CALCIUM CORRECTED 9.4 mg/dL 8.5-10.1 Methicillin resistant Staphylococcus aureus (MRSA) screening culture - 09:00 Methicillin resistant Staphylococcus aureus (MRSA) screening culture NEG NRG Automated blood complete blood count (hemogram) panel - 08/28/18 03:30 Blood leukocytes automated count (number/volume) 8.5 10*3/uL 4.3-11.0 Blood erythrocytes automated count (number/volume) 3.82 10*6/uL 4.35-5.85 Venous blood hemoglobin measurement (mass/volume) 11.6 g/dL 13.3-17.7 Blood hematocrit (volume fraction) 35 % 40-54 Automated erythrocyte mean corpuscular volume 92 [foz_us] 80-99 Automated erythrocyte mean corpuscular hemoglobin (mass per erythrocyte) 30 pg 25-34 Automated erythrocyte mean corpuscular hemoglobin concentration measurement ( mass/volume) 33 g/dL 32-36 Automated erythrocyte distribution width ratio 15.4 % 10.0-14.5 Automated blood platelet count (count/volume) 174 10*3/uL 130-400 Automated blood platelet mean volume measurement 9.8 [foz_us] 7.4-10.4 Whole blood basic metabolic panel - 08/28/18 03:30 Serum or plasma sodium measurement (moles/volume) 136 mmol/L 135-145 Serum or plasma potassium measurement (moles/volume) 4.5 mmol/L 3.6-5.0 Serum or plasma chloride measurement (moles/volume) 104 mmol/L 98-107 Carbon dioxide 22 mmol/L 21-32 Serum or plasma anion gap determination (moles/volume) 10 mmol/L 5-14 Serum or plasma urea nitrogen measurement (mass/volume) 17 mg/dL 7-18 Serum or plasma creatinine measurement (mass/volume) 1.14 mg/dL 0.60-1.30 Serum or plasma urea nitrogen/creatinine mass ratio 15 NRG Serum or plasma creatinine measurement with calculation of estimated glomerular filtration rate > NRG Serum or plasma glucose measurement (mass/volume) 87 mg/dL 70-105 Serum or plasma calcium measurement (mass/volume) 8.6 mg/dL 8.5-10.1 Encounters ACCT No. Visit Date/Time Discharge Status Pt. Type Provider Facility Loc./Unit Complaint [id number] 08/27/2018 08:54:00 08/28/2018 11:53:00 DIS Outpatient Dayton CASTILLO MD [facility] CATH CHEST PAIN,ABN NUCLEAR STRESS TEST [id number] 08/13/2018 07:16:00 08/13/2018 23:59:59 CLS Outpatient Dayton CASTILLO MD [facility] CARD CHEST PRESSURE,SOB, SYNCOPE,HTN [id number] 07/22/2018 11:45:00 07/22/2018 23:59:59 CLS Outpatient Dayton CASTILLO MD [facility] CARD SYNCOPE,DIZZINESS [id number] 07/20/2018 11:18:00 07/20/2018 23:59:59 CLS Outpatient Dayton CASTILLO MD [facility] CARD DIZZINESS,SYNCOPE [id number] 07/15/2018 09:11:00 07/15/2018 23:59:59 CLS Preadmit Dayton CASTILLO MD [facility] CARD SOB,CHEST PRESSURE,HTN [id number] 07/15/2018 09:09:00 07/15/2018 23:59:59 CLS Preadmit Dayton CASTILLO MD [facility] RAD CLAUDICATION [id number] 07/15/2018 09:08:00 07/15/2018 23:59:59 CLS Preadmit Dayton CASTILLO MD [facility] RAD CLAUDICATION [id number] 07/13/2018 12:38:00 07/13/2018 23:59:59 CLS Outpatient JOHN LARA MD [facility] RAD COUGH R05 [id number] 01/07/2014 09:09:00 01/07/2014 23:59:59 CLS Outpatient JOHN LARA MD [facility] RAD LOW BACK PAIN [id number] 10/26/2013 09:59:00 10/26/2013 23:59:59 CLS Outpatient JOHN LARA MD [facility] RAD HTN,BILAT LEG PAIN [id number] 09/14/2013 08:44:00 09/14/2013 23:59:59 CLS Outpatient JOHN LARA MD [facility] RAD COLON CA [id number] 07/16/2013 16:56:00 07/16/2013 23:59:59 CLS Outpatient [id number] 09/21/2018 10:13:00 ACT Emergency PARDEEP BOSE MD [facility] ER LACERATION ON FINGER
[2018-09-21] MEDS ORDERED: LIDOCAINE 1% INJ 20 ML 20 ML VIAL ONE (10:50)
--- NOTE | 2018-09-21 11:24 | ED Upper Extremity ---
General Chief Complaint: Laceration Stated Complaint: LACERATION ON FINGER Nursing Triage Note: Pt presents with about 1 inch laceration to right index finger. pt was pulling glass dishes out of scientific director lastnight and cut finger. reports placing bandage and pressure on finger last night but is still bleeding heavily. pt is on two blood thinners. Nursing Sepsis Screen: No Definite Risk Source: patient, family History of Present Illness Date Seen by Provider: Sep 21, 2018 Time Seen by Provider: 11:19 Initial Comments This 78-year-old white male presents after sustaining laceration to his right ring finger last night as he was emptying dishware out of his scientific director. The patient denies loss of sensation or range of motion affected digit. He has had continued bleeding precipitating his presentation to the emergency department. Patient believes that his tetanus immunizations are up-to-date Allergies and Home Medications Allergies Coded Allergies: No Known Drug Allergies (Unverified , 11/15/11) Home Medications Aspirin 81 Mg Tablet.dr, 81 MG PO DAILY Prescribed by: Dayton CASTILLO on 08/28/18 1139 Diphenoxylate HCl/Atropine 1 Each Tablet, 1 EACH PO DAILY PRN PRN for ABDOMINAL PAIN, (Reported) Etodolac 400 Mg Tablet, 400 MG PO for BACK PAIN, (Reported) Hydrocodone/Acetaminophen 1 Each Tablet, 1 TAB PO Q6H PRN for PAIN-MODERATE, ( Reported) Losartan Potassium 50 Mg Tablet, 100 MG PO DAILY Prescribed by: Dayton CASTILLO on 08/28/18 1139 Metoprolol Succinate 25 Mg Tab.er.24h, 25 MG PO DAILY Prescribed by: Dayton CASTILLO on 08/28/18 1139 Rosuvastatin Calcium 40 Mg Tablet, 40 MG PO DAILY, (Reported) Temazepam 15 Mg Capsule, 15 MG PO HS PRN for SLEEP, (Reported) Ticagrelor 90 Mg Tablet, 90 MG PO BID Prescribed by: Dayton CASTILLO on 08/28/18 1139 Patient Home Medication List Home Medication List Reviewed: Yes Review of Systems Constitutional: No chills EENTM: No ear pain Respiratory: No cough Cardiovascular: No chest pain Gastrointestinal: no symptoms reported Genitourinary: no symptoms reported Musculoskeletal: no symptoms reported Skin: see HPI, other Psychiatric/Neurological: No Symptoms Reported (laceration right ring finger) Past Hhqnosz-Bcliwt-Diikqd Hx Past Med/Social Hx: Reviewed Nursing Past Med/Soc Hx Patient Social History Alcohol Use: Denies Use Recreational Drug Use: No Type Used: Cigarettes Recent Foreign Travel: No Contact w/Someone Who Travel: No Recent Infectious Disease Expo: No Immunizations Up To Date Date of Pneumonia Vaccine: Apr 06, 2018 Date of Influenza Vaccine: Apr 06, 2018 Past Medical History Surgeries: Yes (1991 stomach surgery, 2003 back surgery, 2007 neck surgery, 16/05 EGD) Abdominal, Appendectomy Respiratory: No Currently Using CPAP: No Currently Using BIPAP: No Cardiac: Yes High Cholesterol, Hypertension Neurological: No (HX OF [place] HAS L SIDED DROOPING) Reproductive Disorders: No Genitourinary: No Gastrointestinal: Yes (new dx of CA, scheduled to have colon resection on . Had EGD 11/15/11) Musculoskeletal: Yes (Weakness) Endocrine: No Cancer: Yes Colon Did You Recieve Any Treatments: Yes What Type of Treatment Did You: Surgical Intervention Psychosocial: No Blood Disorders: No Physical Exam Vital Signs Vital Signs - First Documented 09/21/18 10:35 Pulse 60 Resp 18 B/P (MAP) 165/83 (110) Pulse Ox 99 O2 Delivery Room Air Capillary Refill : Less Than 3 Seconds Height, Weight, BMI Height: 5'8.00" Weight: 160lbs. 0.0oz. 72.085594la; 24.3 BMI Method:Stated General Appearance: WD/WN, no apparent distress HEENT: normal ENT inspection Neck: normal inspection Cardiovascular: regular rate, rhythm Respiratory: lungs clear Gastrointestinal: normal bowel sounds, non tender Back: normal inspection Hand: Right, laceration (laceration to the distal phalanx right ring finger. Laceration is 3 cm in length.) Neurologic/Tendon: normal sensation, normal motor functions, normal tendon functions, responds to pain Neurologic/Psychiatric: no motor/sensory deficits, alert, normal mood/affect, oriented x 3 Skin: normal color, warm/dry, other (3 cm lacerationright ring finger over the radial aspect adjacent to the nail.) Progress/Results/Core Measures Results/Orders My Orders Orders - PARDEEP BOSE MD Lidocaine 1% Inj 20 Ml (Xylocaine 1% Inj (09/21/18 10:50) Medications Given in ED Current Medications Medications Dose Ordered Sig/Tez Route Start Time Stop Time Status Last Admin Dose Admin Lidocaine HCl 20 ml STK-MED ONCE .ROUTE 09/21/18 10:50 09/21/18 10:54 DC 09/21/18 11:00 8 ML Vital Signs/I&O 09/21/18 10:35 Pulse 60 Resp 18 B/P (MAP) 165/83 (110) Pulse Ox 99 O2 Delivery Room Air Blood Pressure Mean: 110 Progress Progress Note : Time: 11:23 Progress Note Under usual sterile conditions using 1 percent Xylocaine for digital anesthesia laceration to the right ring finger was prepped and draped copiously cleaned and then closed in an interrupted fashion with 5-0 nylon. Approximately 6 sutures were used for closure. Patient tolerated the procedure well. Estimated blood loss was 20 mL. A dressing was applied to the finger. Departure Impression Primary Impression: Laceration Disposition: 01 HOME, SELF-CARE Condition: Improved Departure-Patient Inst. Decision time for Depature: 11:24 Referrals: JOHN LARA MD (PCP/Family) Primary Care Physician Patient Instructions: Laceration Repair With Stitches (DC) Add. Discharge Instructions: Stitches out in 2 weeks. Watch for signs of infection. Tylenol for pain. Return if any problems or questions. All discharge instructions reviewed with patient and/or family. Voiced understanding. PARDEEP BOSE MD Sep 21, 2018 11:24
[2018-09-21 11:43] VITALS: BP 165/83
== END 2018-09-21 11:43 | disposition home or self-care (01) ==
LOC: EDUNIT# 10:12 → ER 10:13
DX: S61.214A Laceration without foreign body of right ring finger without damage to nail, initial encounter (principal); E78.00 Pure hypercholesterolemia, unspecified; I10 Essential (primary) hypertension; G51.0 Bell's palsy; Z85.038 Personal history of other malignant neoplasm of large intestine; Z79.82 Long term (current) use of aspirin; Z98.890 Other specified postprocedural states; Z90.49 Acquired absence of other specified parts of digestive tract; W26.8XXA Contact with other sharp object(s), not elsewhere classified, initial encounter
CPT/HCPCS: 99284

== ENCOUNTER 2018-10-05 09:49 | Emergency (ER) | payer MEDICARE ==
[~2018-10-05] VITALS: Ht 175.3 cm; Wt 77.1 kg
[2018-10-05 10:16] VITALS: BP 116/81
--- OUTSIDE RECORDS SUMMARY | 2018-10-05 12:47 | XMS REPORT | Continuity of Care Document ---
Author Organization Unknown Address Unknown Allergies Active Description Code Type Severity Reaction Onset Reported/Identified Relationship to Patient Clinical Status Yes No Known Drug Allergies [id number] Drug Allergy Unknown N/A 11/15/2011 Medications There [...] 07/13/2018 JOHN LARA MD Ot 440.21 ATHEROSCL [place] ARTER EXTREM W INTERMIT 07/13/2018 JOHN LARA [...] 07/22/2018 JOHN LARA MD Ot 440.21 ATHEROSCL [place] ARTER EXTREM W INTERMIT 07/22/2018 JOHN LARA [...] 08/27/2018 JOHN LARA MD Ot 440.21 ATHEROSCL [place] ARTER EXTREM W INTERMIT 08/27/2018 JOHN LARA [...] MD Ot I25.10 ATHSCL HEART DISEASE OF [place] CORONARY 08/28/2018 [place] CASTILLO MD Ot 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 08/28/2018 [place] CASTILLO MD Ot I70.0 ATHEROSCLEROSIS OF [place] 08/28/2018 [place] CASTILLO MD Ot I70.213 ATHSCL [place] ARTERIES OF EXTRM W INTRMT 08/28/2018 [place] CASTILLO MD Ot R05 COUGH 08/28/2018 [place] CASTILLO MD Ot R42 DIZZINESS AND GIDDINESS 08/28/2018 Dayton CASTILLO MD Ot R55 SYNCOPE AND COLLAPSE 08/28/2018 [place] CASTILLO MD Ot Z79.02 CORRECTION (CURRENT) USE OF ANTITHROMBOTI 08/28/2018 [place] CASTILLO MD Ot Z79.82 PIN MACHINE TENDER (CURRENT) USE OF ASPIRIN 08/28/2018 [place] CASTILLO MD, Ot Z79.899 OTHER PIN MACHINE TENDER (CURRENT) DRUG THERAPY 08/28/2018 [place] CASTILLO MD Ot Z86.73 PRSNL HX OF TIA (TIA), AND CEREB INFRC W 08/28/2018 [place] CASTILLO MD Ot E78.5 HYPERLIPIDEMIA, UNSPECIFIED 08/28/2018 [place] CASTILLO MD Ot F17.210 NICOTINE DEPENDENCE, CIGARETTES, UNCOMPL 08/28/2018 [place] CASTILLO MD Ot I10 ESSENTIAL (PRIMARY) HYPERTENSION 08/28/2018 [place] CASTILLO MD Ot I25.10 ATHSCL HEART DISEASE OF [place] CORONARY 08/28/2018 [place] CASTILLO MD Ot 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 08/28/2018 [place] CASTILLO MD Ot I70.0 ATHEROSCLEROSIS OF [place] 08/28/2018 [place] CASTILLO MD Ot I70.213 ATHSCL [place] ARTERIES OF EXTRM W INTRMT 08/28/2018 [place] CASTILLO MD Ot R05 COUGH 08/28/2018 [place] CASTILLO MD Ot R42 DIZZINESS AND GIDDINESS 08/28/2018 [place] CASTILLO MD Ot R55 SYNCOPE AND COLLAPSE 08/28/2018 [place] CASTILLO MD Ot Z79.02 PIN MACHINE TENDER (CURRENT) USE OF ANTITHROMBOTI 08/28/2018 [place] CASTILLO MD Ot Z79.82 PIN MACHINE TENDER (CURRENT) USE OF ASPIRIN 08/28/2018 [place] CASTILLO MD Ot Z79.899 OTHER PIN MACHINE TENDER (CURRENT) DRUG THERAPY 08/28/2018 [place] CASTILLO MD [...] CASTILLO MD Ot E78.5 HYPERLIPIDEMIA, UNSPECIFIED 09/11/2018 [place] CASTILLO MD Ot I10 ESSENTIAL (PRIMARY) HYPERTENSION [...] Status Pt. Type Provider Facility Loc./Unit Complaint [id number] 09/21/2018 10:13:00 09/21/2018 11:43:00 DIS Emergency PARDEEP BOSE MD [facility] ER LACERATION ON FINGER [id number] 08/27/2018 08:54:00 08/28/2018 11:53:00 DIS Outpatient [place] CASTILLO MD [facility] CATH CHEST PAIN,ABN NUCLEAR STRESS TEST [id number] 08/13/2018 07:16:00 08/13/2018 23:59:59 CLS Outpatient [place] CASTILLO MD [facility] CARD CHEST PRESSURE,SOB, SYNCOPE,HTN [id number] 07/22/2018 11:45:00 07/22/2018 23:59:59 CLS Outpatient [place] CASTILLO MD [facility] CARD SYNCOPE,DIZZINESS [id number] 07/20/2018 11:18:00 07/20/2018 23:59:59 CLS Outpatient [place] CASTILLO MD [facility] CARD DIZZINESS,SYNCOPE [id number] 07/15/2018 09:11:00 07/15/2018 23:59:59 CLS Preadmit [place] CASTILLO MD [facility] CARD SOB,CHEST PRESSURE,HTN [id number] 07/15/2018 09:09:00 07/15/2018 23:59:59 CLS Preadmit [place] CASTILLO MD [facility] RAD CLAUDICATION [id number] 07/15/2018 09:08:00 07/15/2018 23:59:59 CLS Preadmit [place] CASTILLO MD [facility] RAD CLAUDICATION [id number] 07/13/2018 12:38:00 07/13/2018 23:59:59 CLS Outpatient JOHN LARA MD [facility] RAD COUGH R05 [id number] 01/07/2014 09:09:00 01/07/2014 23:59:59 CLS Outpatient JOHN LARA MD [facility] RAD LOW BACK PAIN [id number] 10/26/2013 09:59:00 10/26/2013 23:59:59 CLS Outpatient JOHN LARA MD [facility] RAD HTN,BILAT LEG PAIN [id number] 09/14/2013 08:44:00 09/14/2013 23:59:59 CLS Outpatient JOHN LARA MD [facility] RAD COLON CA [id number] 07/16/2013 16:56:00 07/16/2013 23:59:59 CLS Outpatient
== END 2018-10-05 10:16 | disposition home or self-care (01) ==
LOC: EDUNIT# 09:49 → ER 09:50
DX: S61.212D Laceration without foreign body of right middle finger without damage to nail, subsequent encounter (principal); X58.XXXD Exposure to other specified factors, subsequent encounter

== ENCOUNTER 2019-12-03 13:28 | Emergency (ER) | payer MEDICARE ==
[~2019-12-03] VITALS: Ht 172.7 cm; Wt 72.6 kg
[~2019-12-03 13:28] MED LIST changes: +ACHYD1T PO; -HYDR-3820 PO; -METO-387 PO; +MTP25TSR PO; -ROSU40TA22 PO; +ROSU40TA23 PO
--- OUTSIDE RECORDS SUMMARY | 2019-12-03 13:35 | XMS REPORT | Continuity of Care Document ---
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, LUMBAR REG, W/OUT NEURO 07/17/2018 Dayton CASTILLO MD Ot R42 DIZZINESS AND GIDDINESS 07/17/2018 [place] CASTILLO MD, Ot R42 DIZZINESS AND GIDDINESS 07/17/2018 [place] CASTILLO MD, Ot R42 DIZZINESS AND GIDDINESS 07/19/2018 JOHN LARA MD Ot J44.9 CHRONIC OBSTRUCTIVE PULMONARY DISEASE, U 07/22/2018 [place] CASTILLO MD Ot E78 .5 HYPERLIPIDEMIA, UNSPECIFIED 07/22/2018 [place] CASTILLO MD Ot I10 ESSENTIAL (PRIMARY) HYPERTENSION 07/22/2018 [place] CASTILLO MD Ot R06.02 SHORTNESS OF BREATH 07/22/2018 [place] CASTILLO MD Ot R07.89 OTHER CHEST PAIN 07/22/2018 [place] CASTILLO MD, Ot R42 DIZZINESS AND GIDDINESS 07/22/2018 [place] CASTILLO MD Ot R55 SYNCOPE AND COLLAPSE 07/22/2018 [place] CASTILLO MD Ot Z72 .0 TOBACCO USE 07/22/2018 JOHN LARA MD Ot 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 07/22/2018 JOHN LARA MD Ot 793.7 NOSP (ABN) FINDINGS ON RADIOLOGICAL OT 07/22/2018 JOHN LARA MD Ot 401.9 HYPERTENSION NOS 07/22/2018 JANE FARRELL, JOHN Pedraza Ot 433.10 CAROTID ARTERY OCCLUSION W O CEREBRAL IN 07/22/2018 JOHN LARA MD Ot 440.21 ATHEROSCL [place] ARTER EXTREM W INTERMIT 07/22/2018 JOHN LARA MD Ot 729.5 PAIN IN LIMB 07/22/2018 JOHN LARA MD Ot 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, LUMBAR REG, W/OUT NEURO 07/22/2018 JOHN LARA MD Ot J44.9 CHRONIC OBSTRUCTIVE PULMONARY DISEASE, U 07/22/2018 [place] CASTILLO MD Ot E78 .5 HYPERLIPIDEMIA, UNSPECIFIED 07/22/2018 [place] CASTILLO MD Ot I10 ESSENTIAL (PRIMARY) HYPERTENSION 07/22/2018 [place] CASTILLO MD Ot R06.02 SHORTNESS OF BREATH 07/22/2018 [place] CASTILLO MD Ot R07.89 OTHER CHEST PAIN 07/22/2018 [place] CASTILLO MD Ot R42 DIZZINESS AND GIDDINESS 07/22/2018 [place] CASTILLO MD Ot R55 SYNCOPE AND COLLAPSE 07/22/2018 [place] CASTILLO MD Ot Z72 .0 TOBACCO USE 08/04/2018 JOHN LARA MD Ot J44.9 CHRONIC OBSTRUCTIVE PULMONARY DISEASE, U 08/14/2018 JOHN LRAA MD Ot J44.9 CHRONIC OBSTRUCTIVE PULMONARY DISEASE, U 08/14/2018 [place] CASTILLO MD Ot E78 .5 HYPERLIPIDEMIA, UNSPECIFIED 08/14/2018 [place] CASTILLO MD Ot I10 ESSENTIAL (PRIMARY) HYPERTENSION 08/14/2018 [place] CASTILLO MD Ot R06.02 SHORTNESS OF BREATH 08/14/2018 [place] CASTILLO MD Ot R07.89 OTHER CHEST PAIN 08/14/2018 Dayton CASTILLO MD Ot R42 DIZZINESS AND GIDDINESS 08/14/2018 [place] CASTILLO MD Ot R55 SYNCOPE AND COLLAPSE 08/14/2018 [place] CASTILLO MD Ot Z72 .0 TOBACCO USE 08/19/2018 [place] CASTILLO MD Ot E78 .5 HYPERLIPIDEMIA, UNSPECIFIED 08/19/2018 [place] ACSTILLO MD Ot I10 ESSENTIAL (PRIMARY) HYPERTENSION 08/19/2018 [place] CASTILLO MD Ot 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 08/19/2018 [place] CASTILLO MD Ot I73 .9 PERIPHERAL VASCULAR DISEASE, UNSPECIFIED 08/19/2018 Dayton CASTILLO MD Ot R06.02 SHORTNESS OF BREATH 08/19/2018 Dayton CASTILLO MD Ot R07.89 OTHER CHEST PAIN 08/19/2018 Dayton CASTILLO MD Ot R55 SYNCOPE AND COLLAPSE 08/19/2018 Dayton CASTILLO MD Ot Z72 .0 TOBACCO USE 08/19/2018 [place] CASTILLO MD Ot E78 .5 HYPERLIPIDEMIA, UNSPECIFIED 08/19/2018 Dayton CASTILLO MD Ot I10 ESSENTIAL (PRIMARY) HYPERTENSION 08/19/2018 Dayton CASTILLO MD Ot R06.02 SHORTNESS OF BREATH 08/19/2018 [place] CASTILLO MD Ot R07.89 OTHER CHEST PAIN 08/19/2018 Dayton CASTILLO MD Ot R42 DIZZINESS AND GIDDINESS 08/19/2018 Dayton CASTILLO MD Ot R55 SYNCOPE AND COLLAPSE 08/19/2018 [place] CASTILLO MD Ot Z72 .0 TOBACCO USE 08/27/2018 JOHN LARA MD Ot 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 08/27/2018 JOHN LARA MD Ot 793.7 NOSP (ABN) FINDINGS ON RADIOLOGICAL OT 08/27/2018 JOHN LARA MD Ot 401.9 HYPERTENSION NOS 08/27/2018 JANE FARRELL, JOHN Pedraza Ot 433.10 CAROTID ARTERY OCCLUSION W O CEREBRAL IN 08/27/2018 JOHN LARA MD Ot 440.21 ATHEROSCL [place] ARTER EXTREM W INTERMIT 08/27/2018 JOHN LARA MD Ot 729.5 PAIN IN LIMB 08/27/2018 JOHN LARA MD Ot 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, LUMBAR REG, W/OUT NEURO 08/27/2018 JOHN LARA MD Ot J44.9 CHRONIC OBSTRUCTIVE PULMONARY DISEASE, U 08/27/2018 Dayton CASTILLO MD, Ot E78 .5 HYPERLIPIDEMIA, UNSPECIFIED 08/27/2018 Dayton CASTILLO MD Ot I10 ESSENTIAL (PRIMARY) HYPERTENSION 08/27/2018 Dayton CASTILLO MD Ot 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 08/27/2018 Dayton CASTILLO MD Ot I73 .9 PERIPHERAL VASCULAR DISEASE, UNSPECIFIED 08/27/2018 Dayton CASTILLO MD Ot R06.02 SHORTNESS OF BREATH 08/27/2018 Dayton CASTILLO MD Ot R07.89 OTHER CHEST PAIN 08/27/2018 Dayton CASTILLO MD Ot R55 SYNCOPE AND COLLAPSE 08/27/2018 Dayton CASTILLO MD Ot Z72 .0 TOBACCO USE 08/27/2018 Dayton CASTILLO MD Ot E78 .5 HYPERLIPIDEMIA, UNSPECIFIED 08/27/2018 Dayton CASTILLO MD Ot I10 ESSENTIAL (PRIMARY) HYPERTENSION 08/27/2018 Dayton CASTILLO MD Ot R06.02 SHORTNESS OF BREATH 08/27/2018 Dayton CASTILLO MD Ot R07.89 OTHER CHEST PAIN 08/27/2018 Dayton CASTILLO MD Ot R42 DIZZINESS AND GIDDINESS 08/27/2018 Dayton CASTILLO MD Ot R55 SYNCOPE AND COLLAPSE 08/27/2018 Dayton CASTILLO MD Ot Z72 .0 TOBACCO USE 08/27/2018 Dayton CASTILLO MD Ot E78 .5 HYPERLIPIDEMIA, UNSPECIFIED 08/27/2018 Dayton CASTILLO MD Ot I10 ESSENTIAL (PRIMARY) HYPERTENSION 08/27/2018 Dayton CASTILLO MD Ot R06.02 SHORTNESS OF BREATH 08/27/2018 [place] CASTILLO MD Ot R07.89 OTHER CHEST PAIN 08/27/2018 Dayton CASTILLO MD Ot R42 DIZZINESS AND GIDDINESS 08/27/2018 Dayton CASTILLO MD Ot R55 SYNCOPE AND COLLAPSE 08/27/2018 Dayton CASTILLO MD Ot Z72 .0 TOBACCO USE 08/28/2018 Dayton CASTILLO MD Ot E78 .5 HYPERLIPIDEMIA, UNSPECIFIED 08/28/2018 Dayton CASTILLO MD Ot F17.210 NICOTINE DEPENDENCE, CIGARETTES, UNCOMPL 08/28/2018 Dayton CASTILLO MD Ot I10 ESSENTIAL (PRIMARY) HYPERTENSION 08/28/2018 [place] CASTILLO MD Ot I25.10 ATHSCL HEART DISEASE OF [place] CORONARY 08/28/2018 Dayton CASTILLO MD Ot 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 08/28/2018 Dayton CASTILLO MD Ot I70 .0 ATHEROSCLEROSIS OF [place] 08/28/2018 Dayton CASTILLO MD Ot I70.213 ATHSCL [place] ARTERIES OF EXTRM W INTRMT 08/28/2018 Dayton CASTILLO MD Ot R05 COUGH 08/28/2018 Dayton CASTILLO MD Ot R42 DIZZINESS AND GIDDINESS 08/28/2018 Dayton CASTILLO MD Ot R55 SYNCOPE AND COLLAPSE 08/28/2018 Dayton CASTILLO MD Ot Z79.02 CUTTER FINISHER (CURRENT) USE OF ANTITHROMBOTI 08/28/2018 Dayton CASTILLO MD Ot Z79.82 SENIOR CARE (CURRENT) USE OF ASPIRIN 08/28/2018 [place] CASTILLO MD Ot Z79.899 OTHER CUTTER FINISHER (CURRENT) DRUG THERAPY 08/28/2018 Dayton CASTILLO MD Ot Z86.73 PRSNL HX OF TIA (TIA), AND CEREB INFRC W 08/28/2018 [place] CASTILLO MD Ot E78 .5 HYPERLIPIDEMIA, UNSPECIFIED 08/28/2018 [place] CASTILLO MD Ot F17.210 NICOTINE DEPENDENCE, CIGARETTES, UNCOMPL 08/28/2018 [place] CASTILLO MD Ot I10 ESSENTIAL (PRIMARY) HYPERTENSION 08/28/2018 [place] CASTILLO MD Ot I25.10 ATHSCL HEART DISEASE OF [place] CORONARY 08/28/2018 Dayton CASTILLO MD Ot 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 08/28/2018 Dayton CASTILLO MD Ot I70 .0 ATHEROSCLEROSIS OF [place] 08/28/2018 Dayton CASTILLO MD Ot I70.213 ATHSCL [place] ARTERIES OF EXTRM W INTRMT 08/28/2018 Dayton CASTILLO MD Ot R05 COUGH 08/28/2018 Dayton CASTILLO MD Ot R42 DIZZINESS AND GIDDINESS 08/28/2018 Dayton CASTILLO MD Ot R55 SYNCOPE AND COLLAPSE 08/28/2018 Dayton CASTILLO MD Ot Z79.02 SENIOR CARE (CURRENT) USE OF ANTITHROMBOTI 08/28/2018 [place] CASTILLO MD Ot Z79.82 CUTTER FINISHER (CURRENT) USE OF ASPIRIN 08/28/2018 [place] CASTILLO MD Ot Z79.899 OTHER SENIOR CARE (CURRENT) DRUG THERAPY 08/28/2018 [place] CASTILLO MD Ot Z86.73 PRSNL HX OF TIA (TIA), AND CEREB INFRC W 09/02/2018 [place] CASTILLO MD Ot E78 .5 HYPERLIPIDEMIA, UNSPECIFIED 09/02/2018 [place] CASTILLO MD Ot I10 ESSENTIAL (PRIMARY) HYPERTENSION 09/02/2018 [place] CASTILLO MD Ot 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 09/02/2018 [place] CASTILLO MD Ot I73 .9 PERIPHERAL VASCULAR DISEASE, UNSPECIFIED 09/02/2018 [place] CASTILLO MD Ot R06.02 SHORTNESS OF BREATH 09/02/2018 [place] CASTILLO MD Ot R07.89 OTHER CHEST PAIN 09/02/2018 JONATHAN FARRELL, [place] LAWLER Ot R55 SYNCOPE AND COLLAPSE 09/02/2018 JONATHAN FARRELL, M NURIS Ot Z72 .0 TOBACCO USE 09/11/2018 JONATHAN FARRELL, [place] LAWLER Ot E78 .5 HYPERLIPIDEMIA, UNSPECIFIED 09/11/2018 JONATHAN FARRELL, [place] LAWLER Ot I10 ESSENTIAL (PRIMARY) HYPERTENSION 09/11/2018 JONATHAN FARRELL, [place] LAWLER Ot 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 00 PURE HYPERCHOLESTEROLEMIA, UNSPECIFIED 09/21/2018 PARDEEP BOSE MD Ot G51. 0 COTE'S PALSY 09/21/2018 PARDEEP BOSE MD Ot I10 ESSENTIAL (PRIMARY) HYPERTENSION 09/21/2018 PARDEEP BOSE MD Ot S61.214A LACERATION W/O FB OF R RNG FNGR W/O NASIM 09/21/2018 PARDEEP BOSE MD Ot W26.8XXA CONTACT WITH OTHER SHARP OBJECT(S), NEC, 09/21/2018 PARDEEP BOSE MD Ot Z79. 82 CUTTER FINISHER (CURRENT) USE OF ASPIRIN 09/21/2018 PARDEEP BOSE MD Ot Z85.038 PERSONAL HISTORY OF MALIGNANT NEOPLASM O 09/21/2018 APRDEEP BOSE MD Ot Z90. 49 ACQUIRED ABSENCE OF OTHER SPECIFIED PART 09/21/2018 PARDEEP BOSE MD Ot Z98.890 OTHER SPECIFIED POSTPROCEDURAL STATES 09/27/2018 PARDEEP BOSE MD Ot E78. 00 PURE HYPERCHOLESTEROLEMIA, UNSPECIFIED 09/27/2018 PARDEEP BOSE MD Ot G51. 0 COTE'S PALSY 09/27/2018 PARDEEP BOES MD Ot I10 ESSENTIAL (PRIMARY) HYPERTENSION 09/27/2018 PARDEEP BOSE MD Ot S61.214A LACERATION W/O FB OF R RNG FNGR W/O NASIM 09/27/2018 LIDYA FARRELL PARDEEP Lindsey Ot W26.8XXA CONTACT WITH OTHER SHARP OBJECT(S), NEC, 09/27/2018 LIDYA FARRELL PARDEEP Lindsey Ot Z79. 82 SENIOR CARE (CURRENT) USE OF ASPIRIN 09/27/2018 PARDEEP BOSE MD Ot Z85.038 PERSONAL HISTORY OF MALIGNANT NEOPLASM O 09/27/2018 LIDYA FARRELL PARDEEP Lindsey Ot Z90. 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, LUMBAR REG, W/OUT NEURO 09/27/2018 JOHN LARA MD Ot J44.9 CHRONIC OBSTRUCTIVE PULMONARY DISEASE, U 09/27/2018 [place] CASTILLO MD Ot E78 .5 HYPERLIPIDEMIA, UNSPECIFIED 09/27/2018 [place] CASTILLO MD Ot I10 ESSENTIAL (PRIMARY) HYPERTENSION 09/27/2018 [place] CASTILLO MD Ot 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 09/27/2018 [place] CASTILLO MD Ot I73 .9 PERIPHERAL VASCULAR DISEASE, UNSPECIFIED 09/27/2018 [place] CASTILLO MD Ot R06.02 SHORTNESS OF BREATH 09/27/2018 JONATHAN FARRELL M NURIS Ot R07.89 OTHER CHEST PAIN 09/27/2018 JONATHAN FARRELL M NURIS Ot R55 SYNCOPE AND COLLAPSE 09/27/2018 JONATHAN FARRELL M NURIS Ot Z72 .0 TOBACCO USE 09/27/2018 JONATHAN FARRELL M NURIS Ot E78 .5 HYPERLIPIDEMIA, UNSPECIFIED 09/27/2018 JONATHAN FARRELL M NURIS Ot I10 ESSENTIAL (PRIMARY) HYPERTENSION 09/27/2018 JONATHAN FARRELL, M NURIS Ot R06.02 SHORTNESS OF BREATH 09/27/2018 JONATHAN FARRELL, M NURIS Ot R07.89 OTHER CHEST PAIN 09/27/2018 JONATHAN FARRELL M NURIS Ot R42 DIZZINESS AND GIDDINESS 09/27/2018 JONATHAN FARRELL M NURIS Ot R55 SYNCOPE AND COLLAPSE 09/27/2018 [place] CASTILLO MD Ot Z72 .0 TOBACCO USE 09/27/2018 JONATHAN FARRELL M NURIS Ot E78 .5 HYPERLIPIDEMIA, UNSPECIFIED 09/27/2018 JONATHAN FARRELL M NURIS Ot I10 ESSENTIAL (PRIMARY) HYPERTENSION 09/27/2018 JONATHAN FARRELL M NURIS Ot R06.02 SHORTNESS OF BREATH 09/27/2018 JONATHAN FARRELL M NURIS Ot R07.89 OTHER CHEST PAIN 09/27/2018 JONATHAN FARRELL M NURIS Ot R42 DIZZINESS AND GIDDINESS 09/27/2018 JONATHAN FARRELL M NURIS Ot R55 SYNCOPE AND COLLAPSE 09/27/2018 JONATHAN FARRELL M NURIS Ot Z72 .0 TOBACCO USE 10/08/2018 JUSTIN MILLS MD Ot S61.212D LACERATION W/O FB OF R MID FINGER W/O DA 10/08/2018 JUSTIN MILLS MD Ot X58.XXXD EXPOSURE TO OTHER SPECIFIED FACTORS, SUB 10/11/2018 JUSTIN MILLS MD Ot S61.212D LACERATION W/O FB OF R MID FINGER W/O DA 10/11/2018 JUSTIN MILLS MD Ot X58.XXXD EXPOSURE TO OTHER SPECIFIED FACTORS, SUB 10/20/2018 [place] CASTILLO MD Ot E78 .5 HYPERLIPIDEMIA, UNSPECIFIED 10/20/2018 [place] CASTILLO MD Ot I10 ESSENTIAL (PRIMARY) HYPERTENSION 10/20/2018 [place] CASTILLO MD Ot R06.02 SHORTNESS OF BREATH 10/20/2018 [place] CASTILLO MD Ot R07.89 OTHER CHEST PAIN 10/20/2018 Dayton CASTILLO MD Ot R42 DIZZINESS AND GIDDINESS 10/20/2018 [place] CASTILLO MD Ot R55 SYNCOPE AND COLLAPSE 10/20/2018 [place] CASTILLO MD Ot Z72 .0 TOBACCO USE 10/26/2018 [place] CASTILLO MD Ot E78 .5 HYPERLIPIDEMIA, UNSPECIFIED 10/26/2018 JONATHAN FARRELL M NURIS Ot I10 ESSENTIAL (PRIMARY) HYPERTENSION 10/26/2018 [place] CASTILLO MD Ot R06.02 SHORTNESS OF BREATH 10/26/2018 JONATHAN FARRELL M NURIS Ot R07.89 OTHER CHEST PAIN 10/26/2018 Dayton CASTILLO MD Ot R42 DIZZINESS AND GIDDINESS 10/26/2018 [place] CASTILLO MD Ot R55 SYNCOPE AND COLLAPSE 10/26/2018 [place] CASTILLO MD Ot Z72 .0 TOBACCO USE Procedures There is no data. Results Test Result Range Automated blood complete blood count ([facility]) panel - 08/27/18 09:00 Blood leukocytes automated count (number/volume) 7.4 10*3/uL 4.3-11.0 Blood erythrocytes automated count (number/volume) 4.11 10*6/uL 4.35-5.85 Venous blood hemoglobin measurement (mass/volume) 12.7 g/dL 13.3-17.7 Blood hematocrit (volume fraction) 38 % 40-54 Automated erythrocyte mean corpuscular volume 93 [ foz_us] 80-99 Automated erythrocyte mean corpuscular h emoglobin (mass per erythrocyte) 31 pg 25-34 Automated erythrocyte mean corpuscular h emoglobin concentration measurement (mass/volume) 33 g/dL 32-36 Automated erythrocyte distribution width ratio 15. 7 % 10.0- 14.5 Automated blood platelet count (count/volume) 195 10*3/uL 130-400 Automated blood platelet mean volume measurement 9.1 [foz_us] 7.4-10.4 PT panel in platelet poor plasma by coag ulation assay - 08/27/18 09:00 Prothrombin time (PT) in platelet poor plasma by coagu lation assay 12.9 s 12.2-14.7 INR in platelet poor plasma or blood by coagulation as say 0.9 0.8-1.4 Activated partial thromboplastin time (a PTT) in platelet poor plasma bycoagulation assay - 08/27/18 09:00 Activated partial thromboplastin time (a PTT) in platelet poor plasma bycoagulation assay 28 s 24-35 Comprehensive metabolic panel - 08/27/18 09:00 Serum or plasma sodium measurement (moles/volume) 138 mmol/L 135-145 Serum or plasma potassium measurement (moles/volume) 4.4 mmol/L 3.6-5.0 Serum or plasma chloride measurement (moles/volume) 104 mmol/L 98-107 Carbon dioxide 28 mmol/L 21-32 Serum or plasma anion gap determination (moles/volume) 6 mmol/L 5-14 Serum or plasma urea nitrogen measurement (mass/volume ) 19 mg/dL 7-18 Serum or plasma creatinine measurement (mass/volume) 1.34 mg/dL 0.60-1.30 Serum or plasma urea nitrogen/creatinine mass ratio 14 NRG Serum or plasma creatinine measurement w ith calculation of estimated glomerular filtration rate 52 NRG Serum or plasma glucose measurement (mass/volume) 94 mg/dL 70-105 Serum or plasma calcium measurement (mass/volume) 9.5 mg/dL 8.5-10.1 Serum or plasma total bilirubin measurement (mass/volu me) 0.5 mg/dL 0.1-1.0 Serum or plasma alkaline phosphatase khang surement (enzymatic activity/volume) 99 U/L 40-136 Serum or plasma aspartate aminotransfera se measurement (enzymatic activity/volume) 22 U/L 5-34 Serum or plasma alanine aminotransferase measurement (enzymatic activity/volume) 19 U/L 0-55 Serum or plasma protein measurement (mass/volume) 7.2 g/dL 6.4-8.2 Serum or plasma albumin measurement (mass/volume) 4.1 g/dL 3.2-4.5 CALCIUM CORRECTED 9.4 mg/dL 8.5-10.1 Methicillin resistant Staphylococcus aur eus (MRSA) screening culture - 08/27/18 09:00 Methicillin resistant Staphylococcus aureus (MRSA) scr eening culture NEG NRG Automated blood complete blood count (he mogram) panel - 08/28/18 03:30 Blood leukocytes automated count (number/volume) 8.5 10*3/uL 4.3-11.0 Blood erythrocytes automated count (number/volume) 3.82 10*6/uL 4.35-5.85 Venous blood hemoglobin measurement (mass/volume) 11.6 g/dL 13.3-17.7 Blood hematocrit (volume fraction) 35 % 40-54 Automated erythrocyte mean corpuscular volume 92 [ foz_us] 80-99 Automated erythrocyte mean corpuscular h emoglobin (mass per erythrocyte) 30 pg 25-34 Automated erythrocyte mean corpuscular h emoglobin concentration measurement (mass/volume) 33 g/dL 32-36 Automated erythrocyte distribution width ratio 15. 4 % 10.0- 14.5 Automated blood platelet count (count/volume) 174 10*3/uL 130-400 Automated blood platelet mean volume measurement 9.8 [foz_us] 7.4-10.4 Whole blood basic metabolic panel - 08/01 02/18 03:30 Serum or plasma sodium measurement (moles/volume) 136 mmol/L 135-145 Serum or plasma potassium measurement (moles/volume) 4.5 mmol/L 3.6-5.0 Serum or plasma chloride measurement (moles/volume) 104 mmol/L 98-107 Carbon dioxide 22 mmol/L 21-32 Serum or plasma anion gap determination (moles/volume) 10 mmol/L 5-14 Serum or plasma urea nitrogen measurement (mass/volume ) 17 mg/dL 7-18 Serum or plasma creatinine measurement (mass/volume) 1.14 mg/dL 0.60-1.30 Serum or plasma urea nitrogen/creatinine mass ratio 15 NRG Serum or plasma creatinine measurement w ith calculation of estimated glomerular filtration rate > NRG Serum or plasma glucose measurement (mass/volume) 87 mg/dL 70-105 Serum or plasma calcium measurement (mass/volume) 8.6 mg/dL 8.5-10.1 Encounters ACCT No. Visit Date/Time Discharge Status Pt. Type Provider Facility Loc./Unit Complaint [id number] 10/21/2018 12:00:00 23:59:59 CLS Preadmit [place] CASTILLO MD Via [facility] CARD SYNCOPE,DIZZINESS [id number] 07/22/2018 11:45:00 00:01:00 DIS Outpatient [place] CASTILLO MD [facility] CARD SYNCOPE,DIZZINESS [id number] 10/07/2018 14:52:00 23:59:59 CLS Preadmit [place] CASTILLO MD [facility] RAD CAROTID STENOSIS RT [id number] 10/05/2018 09:50:00 10:16:00 DIS Outpatient JUSTIN MILLS MD [facility] ER STITCH REMOVAL [id number] 09/21/2018 10:13:00 11:43:00 DIS Emergency LIDYA FARRELL, PARDEEP Portillo [facility] ER LACERATION ON FINGER [id number] 08/27/2018 08:54:00 11:53:00 DIS Outpatient [place] CASTILLO MD Via [facility] CHEST PAIN,ABN NUCLEAR STRESS TEST [id number] 08/13/2018 07:16:00 23:59:59 CLS Outpatient [place] CASTILLO MD [facility] CARD CHEST PRESSURE,SOB,SYNC OPE,HTN [id number] 07/20/2018 11:18:00 23:59:59 CLS Outpatient [place] CASTILLO MD [facility] CARD DIZZINESS,SYNCOPE [id number] 07/15/2018 09:11:00 23:59:59 CLS Preadmit [place] CASTILLO MD [facility] CARD SOB,CHEST PRESSURE,HTN [id number] 07/15/2018 09:09:00 23:59:59 CLS Preadmit JONATHAN FARRELL, [place] LAWLER [facility] RAD CLAUDICATION [id number] 07/15/2018 09:08:00 23:59:59 CLS Preadmit JONATHAN FARRELL, [place] LAWLER [facility] RAD CLAUDICATION [id number] 07/13/2018 12:38:00 23:59:59 CLS Outpatient JOHN LARA MD [facility] RAD COUGH R05 [id number] 01/07/2014 09:09:00 23:59:59 CLS Outpatient JOHN LARA MD [facility] RAD LOW BACK PAIN [id number] 10/26/2013 09:59:00 23:59:59 CLS Outpatient JOHN LARA MD [facility] RAD HTN,BILAT LEG PAIN [id number] 09/14/2013 08:44:00 23:59:59 CLS Outpatient JOHN LARA MD [facility] RAD COLON CA [id number] 07/16/2013 16:56:00 23:59:59 CLS Outpatient [id number] 12/03/2019 13:30:[address] Emergency ARACELI FARRELL, RONAN Benitez [facility] ER L INDEX LAC
--- NOTE | 2019-12-03 14:52 | ED Upper Extremity ---
General Chief Complaint: Laceration Stated Complaint: L INDEX LAC Nursing Triage Note: PT AMBULATES TO TRIAGE WITH C/O LAC. 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 PT ARRIVES WITH PRESSURE DRSG TO L 2ND FINGER. PT REPORTS TO BE CURRENT ON TETANUS VACCINE. PT REPOTRS TO TAKE ELIQUIS BLOOD THINNER. A&OX4. Nursing Sepsis Screen: No Definite Risk Source: patient Exam Limitations: no limitations History of Present Illness Date Seen by Provider: Dec 03, 2019 Time Seen by Provider: 14:38 Initial Comments Patient presents ER by private conveyance chief complaint just prior to arrival he was using a grinding wheel and caught his index finger of his left hand on it draining off the palmar surface of the distal and medial phalanges. He has sensation intact and has ability to flex his finger. He is on Plavix and has some bleeding that won't stop bleeding. He's had a tetanus vaccine in the last 5 years. Allergies and Home Medications Allergies Coded Allergies: No Known Drug Allergies (Unverified , 11/15/11) Home Medications Aspirin 81 Mg Tablet.dr, 81 MG PO DAILY Prescribed by: Dayton CASTILLO on 08/28/18 1139 Diphenoxylate HCl/Atropine 1 Each Tablet, 1 EACH PO DAILY PRN PRN for ABDOMINAL PAIN, (Reported) Etodolac 400 Mg Tablet, 400 MG PO for BACK PAIN, (Reported) Hydrocodone Bit/Acetaminophen 1 Each Tablet, 1 TAB PO Q6H PRN for PAIN-MODERATE, (Reported) Losartan Potassium 50 Mg Tablet, 100 MG PO DAILY Prescribed by: Dayton CASTILLO on 08/28/18 1139 Metoprolol Succinate 25 Mg Tab.er.24h, 25 MG PO DAILY Prescribed by: Dayton CASTILLO on 08/28/18 1139 Rosuvastatin Calcium 40 Mg Tablet, 40 MG PO DAILY, (Reported) Temazepam 15 Mg Capsule, 15 MG PO HS PRN for SLEEP, (Reported) Ticagrelor 90 Mg Tablet, 90 MG PO BID Prescribed by: Dayton CASTILLO on 08/28/18 1139 Patient Home Medication List Home Medication List Reviewed: Yes Review of Systems Constitutional: No chills, No diaphoresis EENTM: No ear discharge, No ear pain Respiratory: No cough, No phlegm, No short of breath Cardiovascular: No edema, No palpitations Gastrointestinal: No abdominal pain, No constipation, No diarrhea, No nausea Genitourinary: No discharge, No dysuria Musculoskeletal: No back pain, No joint pain All Other Systems Reviewed Negative Unless Noted: Yes Past Veowhjr-Zgeqqs-Tazipk Hx Patient Social History Alcohol Use: Denies Use Recreational Drug Use: No Smoking Status: Current Everyday Smoker Type Used: Cigarettes 2nd Hand Smoke Exposure: Yes Recent Foreign Travel: No Contact w/Someone Who Travel: No Recent Infectious Disease Expo: No Immunizations Up To Date Date of Pneumonia Vaccine: Apr 06, 2018 Date of Influenza Vaccine: Apr 06, 2018 Past Medical History Surgeries: Yes (1991 stomach surgery, 2003 back surgery, 2007 neck surgery, 11/15/11 EGD) Abdominal, Appendectomy Respiratory: No Currently Using CPAP: No Currently Using BIPAP: No Cardiac: Yes High Cholesterol, Hypertension Neurological: No (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 Had EGD 11/15/11) Musculoskeletal: Yes (Weakness) Endocrine: No Cancer: Yes Colon Did You Recieve Any Treatments: Yes What Type of Treatment Did You: Surgical Intervention Psychosocial: No Blood Disorders: No Physical Exam Vital Signs Vital Signs - First Documented 12/03/19 14:00 Temp 36.5 Pulse 65 Resp 18 B/P (MAP) 155/70 (98) Pulse Ox 98 O2 Delivery Room Air Capillary Refill : Less Than 3 Seconds Height, Weight, BMI Height: 5'9.00" Weight: 170lbs. 0.0oz. 77.324206gv; 24.00 BMI Method:Estimated General Appearance: WD/WN, mild distress HEENT: PERRL/EOMI, pharynx normal Neck: full range of motion, normal inspection Cardiovascular: normal peripheral pulses, regular rate, rhythm Respiratory: no respiratory distress, no accessory muscle use Elbow/Forearm: normal inspection, non-tender, no evidence of injury, normal ROM, Left Wrist: Yes normal inspection, Yes non-tender, Yes no evidence of injury, Yes normal ROM Hand: normal ROM, Left, soft tissue tenderness (injury to the palmar side of the distal and medial pole of the index finger on the left hand abrasion with about half exposed dermis and half exposed subcutaneous tenderness tissue. Fasci a lies underneath on damage. No foreign body seen.) Procedures/Interventions Wound Location: Upper Extremities Other Wound Location Left hand index finger palmar side middle and distal phalanx Wound Length (cm): 3 Wound's Depth, Shape: sub Q (rectangular, 3 cm x 1 cm) Wound Explored: contaminated Irrigated w/ Saline (ccs): 150 Betadine Prep?: Yes (chlorhexidine and sterile saline) Anesthesia: 1% Lidocaine Volume Anesthetic (ccs): 4 Wound Debrided: minimal Suture: Prolene Suture Size: 4-0 Number of Sutures: 5 Sterile Dressing Applied?: Yes Progress Wound was thoroughly cleaned and explored. Digital block was placed using lidoc randall and then a small arterial pumper was ligated with a [id number]. The 4 corners were brought together using 4 more sutures in a simple interrupted fashion. The wound was left open because it is both contaminated and there is too much skin removed by the grinding wheel to close the wound without severely hampering the range of motion of the finger. Progress/Results/Core Measures Results/Orders My Orders Orders - RONAN CHARLES Lidocaine 1% Inj 20 Ml (Xylocaine 1% Inj (12/03/19 15:00) Vital Signs/I&O 12/03/19 14:00 Temp 36.5 Pulse 65 Resp 18 B/P (MAP) 155/70 (98) Pulse Ox 98 O2 Delivery Room Air Blood Pressure Mean: 98 Progress Progress Note : Time: 14:51 Progress Note Plan to do a digital block clean the wound and try and close it is best possible but there is a large amount of skin missing and some of it will have to heal by secondary intent. Departure Impression Primary Impression: Finger abrasion, non-infected Disposition: 01 HOME, SELF-CARE Condition: Stable Departure-Patient Inst. Decision time for Depature: 15:16 Referrals: JOHN LARA MD (PCP/Family) Primary Care Physician Patient Instructions: Laceration Repair With Stitches (DC) Add. Discharge Instructions: Keep the wound clean with regular soap and water and elevate for swelling. Tylenol 650 mg every 8 hours as needed for pain. Hydrocodone one tablet every 6 hours as needed for breakthrough pain. Hydrocodone will cause drowsiness and constipation. Do not mix it with alcohol. MiraLAX once a day can help combat constipation. Keflex one capsule 3 times a day for the next week to prevent infection. Return to the doctor sooner if you start to have increasing redness swelling pain or discharge coming from the wound. Follow-up next week with primary care. Return to the ER in 10-14 days and we will take the sutures out. Change the dressing at least daily but more frequently if it becomes soiled. Little layer of either Vaseline or triple antibiotic ointment on over the sutures and open wound. All discharge instructions reviewed with patient and/or family. Voiced understanding. Scripts Hydrocodone/Acetaminophen (Hydrocodone-Acetamin 5-325 mg) 1 Each Tablet 1 EACH PO Q6H PRN for PAIN-BREAKTHROUGH, #10 TAB 0 Refills Prov: RONAN CHARLES 12/03/19 Cephalexin (Keflex) 500 Mg Capsule 500 MG PO TID for 7 Days, #21 CAP 0 Refills Prov: RONAN CHARLES 12/03/19 RONAN CHARLES Dec 03, 2019 14:52
[2019-12-03] MEDS ORDERED: LIDOCAINE 1% INJ 20 ML 20 ML VIAL INJ ONE (15:00)
[2019-12-03] MEDS ORDERED: HYDR-83 PO (15:19)
[2019-12-03] MEDS ORDERED: CEPH-507 PO (15:19)
[2019-12-03 15:27] VITALS: BP 143/82
[2019-12-03] MEDS ORDERED: CEPHALEXIN 250 MG (KEFLEX) CAP PO ONE (15:30)
== END 2019-12-03 15:27 | disposition home or self-care (01) ==
LOC: EDUNIT# 13:28 → ER 13:30
DX: S61.211A Laceration without foreign body of left index finger without damage to nail, initial encounter (principal); I10 Essential (primary) hypertension; E78.00 Pure hypercholesterolemia, unspecified; G51.0 Bell's palsy; F17.210 Nicotine dependence, cigarettes, uncomplicated; Z85.038 Personal history of other malignant neoplasm of large intestine; Z79.02 Long term (current) use of antithrombotics/antiplatelets; Z79.82 Long term (current) use of aspirin; W26.8XXA Contact with other sharp object(s), not elsewhere classified, initial encounter
CPT/HCPCS: 12031

== ENCOUNTER 2019-12-15 11:04 | Emergency (ER) | payer MEDICARE ==
[~2019-12-15] VITALS: Ht 165.1 cm; Wt 81.8 kg
[~2019-12-15 11:04] MED LIST changes: +CEPH-507 PO; +HYDR-83 PO
[2019-12-15 11:26] VITALS: BP 133/70
--- OUTSIDE RECORDS SUMMARY | 2019-12-15 13:51 | XMS REPORT | Continuity of Care Document ---
Author Organization Unknown Address Unknown Phone Unavailable Allergies Active Description Code Type Severity Reaction Onset Reported/Identified Relationship to Patient Clinical Status Yes No Known Drug Allergies [id number] Drug Allergy Unknown N/A 11/15/2011 Medications There [...] 07/13/2018 JOHN LARA MD Ot 440.21 ATHEROSCL [place] ARTER EXTREM W INTERMIT 07/13/2018 JOHN LARA [...] 07/22/2018 JOHN LARA MD Ot 440.21 ATHEROSCL [place] ARTER EXTREM W INTERMIT 07/22/2018 JOHN LARA [...] 08/27/2018 JOHN LARA MD Ot 440.21 ATHEROSCL [place] ARTER EXTREM W INTERMIT 08/27/2018 JOHN LARA [...] MD Ot I25.10 ATHSCL HEART DISEASE OF [place] CORONARY 08/28/2018 Dayton CASTILLO MD Ot 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73 PRSNL HX OF TIA (TIA), AND CEREB INFRC W 08/28/2018 Dayton CASTILLO MD Ot E78 .5 HYPERLIPIDEMIA, UNSPECIFIED 08/28/2018 Dayton CASTILLO MD Ot F17.210 NICOTINE DEPENDENCE, CIGARETTES, UNCOMPL 08/28/2018 Dayton CASTILLO MD Ot I10 ESSENTIAL (PRIMARY) HYPERTENSION 08/28/2018 Dayton CASTILLO MD Ot I25.10 ATHSCL HEART DISEASE OF [place] CORONARY 08/28/2018 Dayton CASTILLO MD Ot 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 82 NURSE GYNECOLOGY (CURRENT) USE OF ASPIRIN 09/21/2018 PARDEEP BOSE MD Ot Z85.038 PERSONAL HISTORY OF MALIGNANT NEOPLASM O 09/21/2018 PARDEEP BOSE MD Ot Z90. 49 ACQUIRED ABSENCE OF OTHER SPECIFIED PART 09/21/2018 PARDEEP BOSE MD Ot Z98.890 OTHER SPECIFIED POSTPROCEDURAL STATES 09/27/2018 PARDEEP BOSE MD Ot E78. 00 PURE HYPERCHOLESTEROLEMIA, UNSPECIFIED 09/27/2018 PARDEEP BOSE MD Ot G51. 0 COTE'S PALSY 09/27/2018 PARDEEP BOSE MD Ot I10 ESSENTIAL (PRIMARY) HYPERTENSION 09/27/2018 [...] 09/27/2018 JOHN LARA MD Ot 440.21 ATHEROSCL [place] ARTER EXTREM W INTERMIT 09/27/2018 JOHN LARA [...] EXPOSURE TO OTHER SPECIFIED FACTORS, SUB 10/20/2018 JONATHAN FARRELL, Dayton LAWLER Ot E78 .5 HYPERLIPIDEMIA, UNSPECIFIED 10/20/2018 Dayton CASTILLO MD Ot I10 ESSENTIAL (PRIMARY) HYPERTENSION 10/20/2018 JONATHAN FARRELL, [place] LAWLER Ot R06.02 SHORTNESS OF BREATH 10/20/2018 Dayton CASTILLO MD Ot R07.89 OTHER CHEST PAIN 10/20/2018 Dayton CASTILLO MD Ot R42 DIZZINESS AND GIDDINESS 10/20/2018 Dayton CASTILLO MD Ot R55 SYNCOPE AND COLLAPSE 10/20/2018 Dayton CASTILLO MD Ot Z72 .0 TOBACCO USE 10/26/2018 Dayton CASTILLO MD Ot E78 .5 HYPERLIPIDEMIA, UNSPECIFIED 10/26/2018 Dayton CASTILLO MD Ot I10 ESSENTIAL (PRIMARY) HYPERTENSION 10/26/2018 Dayton CASTILLO MD Ot R06.02 SHORTNESS OF BREATH 10/26/2018 JONATHAN FARRELL M NURIS Ot R07.89 OTHER CHEST PAIN 10/26/2018 Dayton CASTILLO MD Ot R42 DIZZINESS AND GIDDINESS 10/26/2018 Dayton CASTILLO MD Ot R55 SYNCOPE AND COLLAPSE 10/26/2018 Dayton CASTILLO MD Ot Z72 .0 TOBACCO USE 12/09/2019 RONAN CHARLES MD Ot E78. 00 PURE HYPERCHOLESTEROLEMIA, UNSPECIFIED 12/09/2019 RONAN CHARLES MD Ot F17.210 NICOTINE DEPENDENCE, CIGARETTES, UNCOMPL 12/09/2019 RONAN CHARLES MD Ot G51. 0 COTE'S PALSY 12/09/2019 RONAN CHARLES MD Ot I10 ESSENTIAL (PRIMARY) HYPERTENSION 12/09/2019 RONAN CHARLES MD Ot M79.645 PAIN IN LEFT FINGER(S) 12/09/2019 RONAN CHARLES MD Ot S61.211A LACERATION W/O FB OF L IDX FNGR W/O NASIM 12/09/2019 RONAN CHARLES MD Ot W26.8XXA CONTACT WITH OTHER SHARP OBJECT(S), NEC, 12/09/2019 RONAN CHARLES MD, Ot Z79. 02 SENIOR CARE (CURRENT) USE OF ANTITHROMBOTI 12/09/2019 RONAN CHARLES MD, Ot Z79. 82 NURSE GYNECOLOGY (CURRENT) USE OF ASPIRIN 12/09/2019 RONAN CHARLES MD, Ot Z85.038 PERSONAL HISTORY OF MALIGNANT NEOPLASM O Procedures There is no data. Results Test Result Range Automated blood complete blood count (he mogram) panel - 08/27/18 09:00 Blood leukocytes automated [...] mg/dL 0.1-1.0 Serum or plasma alkaline phosphatase kahng surement (enzymatic activity/volume) 99 U/L 40-136 Serum [...] Status Pt. Type Provider Facility Loc./Unit Complaint [id number] 12/15/2019 11:06:00 11:27:00 DIS Emergency GERARDO GOLD MD [facility] ER STITCH REMOVAL [id number] 12/03/2019 13:30:00 15:27:00 DIS Outpatient RONAN CHARLES MD [facility] ER L INDEX LAC [id number] 10/21/2018 12:00:00 23:59:59 CLS Preadmit Dayton CASTILLO MD [facility] CARD SYNCOPE,DIZZINESS [id number] 07/22/2018 11:45:00 00:01:00 DIS Outpatient Dayton CASTILLO MD [facility] CARD SYNCOPE,DIZZINESS [id number] 10/07/2018 14:52:00 23:59:59 CLS Preadmit Dayton CASTILLO MD [facility] RAD CAROTID STENOSIS RT [id number] 10/05/2018 09:50:00 10:16:00 DIS Outpatient JUSTIN MILLS MD [facility] ER STITCH REMOVAL [id number] 09/21/2018 10:13:00 11:43:00 DIS Emergency PARDEEP BOSE MD [facility] ER LACERATION ON FINGER [id number] 08/27/2018 08:54:00 11:53:00 DIS Outpatient Dayton CASTILLO MD [facility] CATH CHEST PAIN,ABN NUCLEAR STRESS TEST [id number] 08/13/2018 07:16:00 23:59:59 CLS Outpatient Dayton CASTILLO MD [facility] CARD CHEST PRESSURE,SOB,SYNC OPE,HTN [id number] 07/20/2018 11:18:00 23:59:59 CLS Outpatient Dayton CASTILLO MD [facility] CARD DIZZINESS,SYNCOPE [id number] 07/15/2018 09:11:00 23:59:59 CLS Preadmit Dayton CASTILLO MD [facility] CARD SOB,CHEST PRESSURE,HTN [id number] 07/15/2018 09:09:00 23:59:59 CLS Preadmit Dayton CASTILLO MD [facility] RAD CLAUDICATION [id number] 07/15/2018 09:08:00 23:59:59 CLS Preadmit Dayton CASTILLO MD [facility] RAD CLAUDICATION [id number] 07/13/2018 12:38:00 23:59:59 CLS Outpatient JOHN LARA MD [facility] RAD COUGH R05 [id number] 01/07/2014 09:09:00 23:59:59 CLS Outpatient JOHN LARA MD [facility] RAD LOW BACK PAIN [id number] 10/26/2013 09:59:00 23:59:59 CLS Outpatient JOHN LARA MD [facility] RAD HTN,BILAT LEG PAIN [id number] 09/14/2013 08:44:00 23:59:59 CLS Outpatient JOHN LARA MD [facility] RAD COLON CA [id number] 07/16/2013 16:56:00 23:59:59 CLS Outpatient
== END 2019-12-15 11:27 | disposition home or self-care (01) ==
LOC: EDUNIT# 11:04 → ER 11:06
DX: S61.211D Laceration without foreign body of left index finger without damage to nail, subsequent encounter (principal); X58.XXXD Exposure to other specified factors, subsequent encounter

== ENCOUNTER → 2021-04-24 | Outpatient (CLI) | payer MEDICARE ==
[~2021-04-24] MED LIST changes: +ACHD5005 PO; +ASPI-1238 PO; -ASPI-983 PO; -ETOD400T PO; +ETOD400T3 PO; -HYDR-83 PO; -LISI40TA PO; +LISI40TA9 PO
== END ==
LOC: CARD 09:00
PROVIDERS: ATTEND Internal Medicine Cardiovascular Disease
DX: I11.9 Hypertensive heart disease without heart failure (principal); I35.1 Nonrheumatic aortic (valve) insufficiency
CPT/HCPCS: 93306

== ENCOUNTER → 2021-05-14 | Outpatient (CLI) | payer MEDICARE ==
[~2021-05-14] MED LIST changes: +CATHETER FLUSH 10 ML SYR IV PRN; +REGADENOSON 0.4 MG/5 ML SYR (LEXISCAN) IV ONE
[2021-05-14 09:12] VITALS: BP 201/81
--- NOTE | 2021-05-14 11:23 | Cardiology Stress Test Report ---
Stress Test Report Date of Procedure/Referring: Date of Procedure: May 14, 2021 PCP Torie Temple MD Admitting Physician Dex Covington MD Indications: HTN Baseline Heart Rate: 61 Baseline Blood Pressure: Blood Pressure Systolic: 201 Blood Pressure Diastolic: 81 Baseline Vitals Vital Signs Date Time Temp Pulse Resp B/P (MAP) Pulse Ox O2 Delivery O2 Flow Rate FiO2 05/14/21 09:12 61 201/81 (121) 98 Baseline EKG: Baseline EKG: NSR Summary After explaining the procedure to the patient, he signed a consent and then brought to the stress nuclear laboratory. Patient received 0.4 mg Lexiscan for stress test, ECG, heart rate and blood pressure were monitored continuously. Resting and stress dose of radio tracer were injected, imaging was acquired and reviewed in short axis, horizontal long axis and vertical long axis views. TID: 1.12 SSS: 4 SDS: 0 EF: 65 1. Patient tolerated Lexiscan well 2. Diaphragmatic attenuation with fixed defect involving the inferior apical segment and inferior wall with no significant ischemia or infarction on SPECT images 3. Normal left ventricular size, EF 65 TORIE TEMPLE MD May 14, 2021 11:23
== END ==
LOC: CARD 08:00
PROVIDERS: ATTEND Internal Medicine Cardiovascular Disease
DX: I10 Essential (primary) hypertension (principal); I25.10 Atherosclerotic heart disease of native coronary artery without angina pectoris
CPT/HCPCS: 78452; 93017; A9502

== ENCOUNTER → 2022-04-04 | Outpatient (CLI) | payer MEDICARE ==
[~2022-04-04] MED LIST changes: -CATHETER FLUSH 10 ML SYR IV PRN; -REGADENOSON 0.4 MG/5 ML SYR (LEXISCAN) IV ONE
--- NOTE | 2022-04-04 17:03 | Diagnostic Imaging Report ---
INDICATION: Neck pain. EXAMINATION: AP and odontoid and lateral views of the cervical spine were obtained. Cervical vertebrae are normal in height. There is mild anterolisthesis of C5 on C6 by 1-2 mm. There is mild diffuse osteophyte formation throughout the cervical discs and throughout the facets. Odontoid is intact. IMPRESSION: Diffuse degenerative changes in the cervical spine with no acute fracture. Slight anterolisthesis of C5 and C6, likely on a degenerative basis. Dictated by: Dictated on workstation # [id number]
== END ==
LOC: RAD 10:21
PROVIDERS: ATTEND Physician Assistant
DX: M47.812 Spondylosis without myelopathy or radiculopathy, cervical region (principal); M43.12 Spondylolisthesis, cervical region
CPT/HCPCS: 72040

== ENCOUNTER → 2022-04-24 | Outpatient (CLI) | payer MEDICARE ==
--- NOTE | 2022-04-24 14:47 | Diagnostic Imaging Report ---
CLINICAL INDICATION: Patient has right shoulder and right arm pain. EXAM: MRI of the cervical spine without contrast. Sequences include sagittal T2, sagittal T1, sagittal STIR, and axial T2. COMPARISON: X-ray of the cervical spine dated 04/04/2022. FINDINGS: There is no acute cervical spine fracture or dislocation. There are no significant Modic degenerative signal changes. There are degenerative spurs involving the cervical spine and multilevel facet arthropathy. There is no significant paraspinal soft tissue abnormality. There is a small area of high T2 signal involving the posterior aspect of the kole, which may be from chronic ischemic disease. There is no abnormal signal involving the cervical spine. C1-C2: There are degenerative spurs involving the atlanto-odontoid interval. There is no significant central canal stenosis. C2-C3: There is moderate right facet arthropathy and mild left facet arthropathy. There is ligamentum flavum buckling. There is no significant disk bulge. There is mild central canal stenosis. There is moderate right neural foramen narrowing and mild left neural foramen narrowing. C3-C4: There is moderate bilateral facet arthropathy/hypertrophy. There is mild diffuse disk bulge with bilateral uncinate spurs and right side worse than the left. There is severe right neural foramen narrowing. There is no significant left neural foramen narrowing. There is moderate central canal stenosis. C4-C5: There is severe left facet arthropathy and moderate right facet arthropathy. There is moderate central canal stenosis. There is mild bilateral neural foramen narrowing. C5-C6: There is moderate bilateral facet arthropathy. There is a mild diffuse disk bulge with bilateral uncinate spurs. There is jjxllxdw-zo-kepziw bilateral neural foramen narrowing with the right side worse than the left. C6-C7: There is mild bilateral facet arthropathy. There is mild diffuse disk bulge. There is moderate central canal stenosis. There is moderate bilateral neural foramen narrowing. C7-T1: There is mild bilateral facet arthropathy. There is mild diffuse disk bulge. There is at least moderate bilateral neural foramen narrowing. IMPRESSION: There is multilevel cervical spine degenerative disk disease, as described above. Dictated by: Dictated on workstation # [id number]
== END ==
LOC: RAD 12:28
PROVIDERS: ATTEND Physician Assistant
DX: M50.10 Cervical disc disorder with radiculopathy, unspecified cervical region (principal); M46.02 Spinal enthesopathy, cervical region; M47.22 Other spondylosis with radiculopathy, cervical region; M48.02 Spinal stenosis, cervical region; M47.813 Spondylosis without myelopathy or radiculopathy, cervicothoracic region
CPT/HCPCS: 72141

== ENCOUNTER → 2022-07-08 | Outpatient (CLI) | payer MEDICARE ==
[~2022-07-08] MED LIST changes: +HOLD METFORMIN - RECEIVED CONTRAST 20 ML VIAL IV SCH; +IOHEXOL 350 MG/ML 100 ML (OMNIPAQUE 350) VIAL IV ONE; +NS 100 ML (IVPB) BAG IV ONE
[2022-07-08 17:47] LABS: HEMATOCRIT 36 % (40-54); HEMOGLOBIN 11.4 g/dL (13.3-17.7); MEAN CORPUSCULAR HEMOGLOBIN 31 pg (25-34); MEAN CORPUSCULAR HGB CONC 32 g/dL (32-36); MEAN CORPUSCULAR VOLUME 97 fL (80-99); MEAN PLATELET VOLUME 9.3 fL (9.0-12.2); PLATELET COUNT 251 10^3/uL (130-400); WHITE BLOOD COUNT 16.9 10^3/uL (4.3-11.0)
[2022-07-08 17:59] LABS: PROTHROMBIN TIME PATIENT 13.6 SEC (12.2-14.7)
[2022-07-08 18:00] LABS: ALBUMIN 3.3 GM/DL (3.2-4.5); POTASSIUM 4.2 MMOL/L (3.6-5.0)
[2022-07-08 18:01] LABS: CALCIUM 9.3 MG/DL (8.5-10.1)
[2022-07-08 18:03] LABS: TOTAL PROTEIN 6.3 GM/DL (6.4-8.2)
[2022-07-08 18:04] LABS: BILIRUBIN,TOTAL 0.3 MG/DL (0.1-1.0)
[2022-07-08 18:06] LABS: CREATININE SERUM 1.36 MG/DL (0.60-1.30)
--- NOTE | 2022-07-08 18:51 | Diagnostic Imaging Report ---
PROCEDURE: CT chest with contrast only. TECHNIQUE: Multiple contiguous axial images were obtained through the chest after administration of intravenous contrast. Auto Exposure Controls were utilized during the CT exam to meet ALARA standards for radiation dose reduction. INDICATION: Shortness of breath and cough COMPARISON: Chest x-ray from 07/13/2018 FINDINGS: The heart is normal in size. There is no pericardial effusion. The aorta demonstrates moderate atherosclerosis with no aneurysm or dissection seen. There are multiple enlarged mediastinal lymph nodes. This includes a conglomeration of precarinal lymph nodes which measures about 2.4 x 2.6 cm in size. There is a subcarinal lymph node measuring 3.2 x 2.2 cm in size. There is marked right hilar lymphadenopathy with a centrally necrotic mass at the right hilum measuring about 3.1 x 2.4 cm in size. There is consolidation in the right middle lobe, may represent infection and/or neoplasm. There is a small right pleural effusion. There are degenerative changes in the spine. No focal bony lesions are identified. There are multiple ill-defined hypodense lesions in the liver. The largest on the right measures about 5.9 x 3.3 cm in size. The largest on the left measures about 3.7 x 2.6 cm in size. There are multiple abnormally enlarged lymph nodes in the retroperitoneum and naomy hepatis. A marker nodule in the naomy hepatis measures about 3.5 x 3.4 cm in size (image 163 series 2). IMPRESSION: 1. Mediastinal lymphadenopathy with right hilar mass/lymphadenopathy, consistent with malignancy. There is pneumonia and possibly additional neoplasm in the right middle lobe. 2. Multiple lesions throughout the liver with additional lymphadenopathy in the upper abdomen, concerning for metastasis. Findings discussed with CRISTINO BUSTOS by Dr. Mayes, on 07/08/2022 6:46 PM. Dictated by: Dictated on workstation # [id number]
== END ==
LOC: RAD 17:27
PROVIDERS: ATTEND Physician Assistant
DX: J18.9 Pneumonia, unspecified organism (principal); K76.89 Other specified diseases of liver; R59.1 Generalized enlarged lymph nodes; R04.2 Hemoptysis
CPT/HCPCS: 36415; 71260; 80053; 85027; 85610; 85730; 87070; 87205

== ENCOUNTER → 2022-07-11 | Outpatient (CLI) | payer MEDICARE ==
[2022-07-11] VITALS (9 sets, daily range): BP systolic 140–179; BP diastolic 60–84
[~2022-07-11] VITALS: Ht 172 cm; Wt 72.7 kg
[~2022-07-11] MED LIST changes: +DOXY100T2 PO; -HOLD METFORMIN - RECEIVED CONTRAST 20 ML VIAL IV SCH; -IOHEXOL 350 MG/ML 100 ML (OMNIPAQUE 350) VIAL IV ONE; +LIDOCAINE 1% INJ 30 ML (XYLOCAINE) VIAL INJ STA; +MIDAZOLAM 2 MG/2 ML (VERSED) VIAL IVP STA; +MIDAZOLAM 2 MG/2 ML (VERSED) VIAL ONE; -NS 100 ML (IVPB) BAG IV ONE; +NS IV 1000 ML 1,000 ML IV STA; +NS IV 1000 ML 1,000 ML ONE; +fentaNYL INJ 100 MCG/2 ML AMP IVP STA; +fentaNYL INJ 100 MCG/2 ML AMP ONE
[2022-07-11 09:08] LABS: HEMATOCRIT 39 % (40-54); HEMOGLOBIN 12.6 g/dL (13.3-17.7); MEAN CORPUSCULAR HEMOGLOBIN 31 pg (25-34); MEAN CORPUSCULAR HGB CONC 33 g/dL (32-36); MEAN CORPUSCULAR VOLUME 95 fL (80-99); MEAN PLATELET VOLUME 9.4 fL (9.0-12.2); PLATELET COUNT 267 10^3/uL (130-400); WHITE BLOOD COUNT 19.8 10^3/uL (4.3-11.0)
--- NOTE | 2022-07-11 10:26 | Pre-Op Note & Conscious Sedat ---
Pre-Operative Progress Note Date of Available H&P: Jul 11, 2022 Date H&P Reviewed: Jul 11, 2022 Time H&P Reviewed: 09:00 Pre-Op Diagnosis: liver masses Conscious Sedation Pre-Proced Time 09:00 ASA Score 2 For ASA 3 and 4: Consider anesthesia and medical clearance. Also, for patients with a history of failed moderate sedation consider anesthesia. Airway Lungs Heart ASA score ASA 1: a normal healthy patient ASA 2: a patient with a mild systemic disease (mid diabetes, controlled hypertension, obesity ASA 3: a patient with a severe systemic disease that limits activity (angina, COPD, prior Myocardial infarction) ASA 4: a patient with an incapacitating disease that is a constant threat to life (CHF, renal failure) ASA 5: a moribund patient not expected to survive 24 hrs. (ruptured aneurysm) ASA 6: a declared brain- patient whose organs are being harvested. For emergent operations, add the letter E after the classification Mallampati Classification Grade 2 Sedation Plan Analgesia, Amnesia, Plan communicated to team members, Discussed options with patient/fam, Discussed risks with patient/fam The patient is an appropriate candidate to undergo the planned procedure, sedation, and anesthesia. The patient immediately re-assessed prior to indication. BELLE LAFLEUR MD Jul 11, 2022 10:26
--- NOTE | 2022-07-11 11:04 | Diagnostic Imaging Report ---
INDICATION: LIVER MASS/NODULE BX TECHNIQUE: All CT scans use one or more of the following dose optimizing techniques: automated exposure control, MA and/or KvP adjustment based on patient size and exam type or iterative reconstruction. FINDINGS: Patient was brought to the CT suite, placed on table in the supine position. Axial imaging through the abdomen was performed to evaluate appropriate entry site. The procedure was performed utilizing conscious sedation with radiology nursing and constant patient monitoring. Patient was administered 50 mcg of fentanyl intravenously. Total procedure time was approximately 5 minutes. Right abdomen was prepped and draped in the usual sterile fashion. Small amount of 1% lidocaine was utilized for local anesthesia. 18-gauge coaxial Temno needle was advanced and placed with its tip within the solid mass in the right lobe of the liver. Four core biopsies were obtained. Needle was removed during blood patch administration. Hemostasis was obtained. Patient tolerated the procedure well and left the department in stable condition. IMPRESSION: Successful CT-guided right lobe liver mass biopsy, utilizing conscious sedation. Pathology results are currently pending. Dictated by: Dictated on workstation # [id number]
== END ==
LOC: SDC 08:41
PROVIDERS: ATTEND Physician Assistant
DX: R16.0 Hepatomegaly, not elsewhere classified (principal)
CPT/HCPCS: 36415; 77012; 85027; 85610; 85730

== ENCOUNTER 2022-07-19 16:41 | Inpatient (IN) | payer MEDICARE ==
[~2022-07-19] VITALS: Ht 172.7 cm; Wt 66.2 kg
[~2022-07-19 16:41] MED LIST changes: -LIDOCAINE 1% INJ 30 ML (XYLOCAINE) VIAL INJ STA; -MIDAZOLAM 2 MG/2 ML (VERSED) VIAL IVP STA; -MIDAZOLAM 2 MG/2 ML (VERSED) VIAL ONE; -NS IV 1000 ML 1,000 ML IV STA; -NS IV 1000 ML 1,000 ML ONE; -fentaNYL INJ 100 MCG/2 ML AMP IVP STA; -fentaNYL INJ 100 MCG/2 ML AMP ONE
--- NOTE | 2022-07-19 18:08 | ED General ---
General Chief Complaint: General Problems/Pain Stated Complaint: HIGH WBC Nursing Triage Note: PT AMB TO FT1 PT STATES WAS SENT TO ED BY DR GUTIERREZ OFFICE STATES HAS ELEVATED WBC. 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 PT DENIES FEVERS Source of Information: Patient, Old Records (MOST OF PMH IS FROM OLD RECORDS), Spouse Exam Limitations: Other (PT / ARE SOMEWHAT LIMITED HISTORIANS) History of Present Illness Date Seen by Provider: Jul 19, 2022 Time Seen by Provider: 17:55 Initial Comments PT ARRIVES VIA POV FROM HOME WITH PT STATES HE HAD ROUTINE LAB DONE AND WAS TOLD HE HAD AN ELEVATED WBC AND SENT HERE. PT HAD ROUTINE APPOINTMENT WITH CRISTINO HOOD AT DR. AUGUSTE'S OFFICE LAST WEEK HE IS BEING EVALUATED FOR POSSIBLE CANCER, HE HAS SEEN DR. MOREIRA, AND HAD A PT SCAN DONE YESTERDAY AT DR. MOREIRA'S OFFICE, AND HAD LIVER BIOPSY DONE ON FRIDAY PT DOES NOT VOICE ANY ACUTE SYMPTOMS NO CHANGE IN ONGOING COUGH OR CHRONIC SHORTNESS OF BREATH--STATES HE HAS BEEN ON DOXYCYCLINE FOR POSSIBLE PNEUMONIA-TODAY IS LAST DAY OF MEDICATION--PRESCRIBED 07/09/22 NO FEVER/SWEATS/CHILLS NO GI SYMPTOMS OR ABDOMINAL PAIN NO NEW URINARY SYMPTOMS NO CHANGE IN CHRONIC ANKLE SWELLING PT HAS HISTORY OF HTN, CAD WITH STENT PLACEMENT, CAROTID DISEASE, HYPERLIPIDEMIA, THYROID DISEASE, PROSTATE PROBLEMS, ANEMIA HE HAS HISTORY OF COLON CANCER WITH COLON RESECTION 2005. NO CHEMO OR RADIATION PCP: DR. AUGUSTE'S OFFICE HEMATOLOGY/ONCOLOGY: DR. MOREIRA Allergies and Home Medications Allergies Coded Allergies: No Known Drug Allergies (Unverified , 11/15/11) Patient Home Medication List Diphenoxylate HCl/Atropine (Lomotil 2.5-0.025 mg Tablet) 1 Each Tablet, 1 EACH PO DAILY PRN PRN for ABDOMINAL PAIN, (Reported) Entered as Reported by: KATHERINE LOTT on 08/27/18 1005 Doxycycline Hyclate (Doxycycline Hyclate) 100 Mg Tablet, 100 MG PO BID, (Reported) Entered as Reported by: QI GOULD on 07/11/22 0911 Etodolac (Etodolac) 400 Mg Tablet, 400 MG PO for BACK PAIN, (Reported) Entered as Reported by: KATHERINE LOTT on 08/27/18 1005 Hydrocodone Bit/Acetaminophen (HYDROcodone/APAP 10/325 TABLET) 1 Each Tablet, 1 TAB PO Q6H PRN for PAIN-MODERATE, (Reported) Entered as Reported by: KATHERINE LOTT on 08/27/18 1005 Hydrocodone/Acetaminophen (Hydrocodone-Acetamin 5-325 mg) 1 Each Tablet, 1 EACH PO Q6H PRN for PAIN-BREAKTHROUGH Prescribed by: RONAN CHARLES on 12/03/19 1519 Losartan Potassium (Losartan Potassium) 50 Mg Tablet, 100 MG PO DAILY Prescribed by: Dayton CASTILLO on 08/28/18 1139 Metoprolol Succinate (Metoprolol Succinate) 25 Mg Tab.er.24h, 25 MG PO DAILY Prescribed by: Dayton CASTILLO on 08/28/18 1139 Rosuvastatin Calcium (Rosuvastatin Calcium) 40 Mg Tablet, 40 MG PO DAILY, (Reported) Entered as Reported by: KATHERINE LOTT on 08/27/18 1005 Temazepam (Temazepam) 15 Mg Capsule, 15 MG PO HS PRN for SLEEP, (Reported) Entered as Reported by: KATHERINE LOTT on 08/27/18 1005 Ticagrelor (Brilinta) 90 Mg Tablet, 90 MG PO BID Prescribed by: Dayton CASTILLO on 08/28/18 1139 Review of Systems Review of Systems Constitutional: no symptoms reported; No chills, No diaphoresis, No dizziness, No fever, No malaise, No weakness EENTM: no symptoms reported Respiratory: see HPI, cough, short of breath Cardiovascular: see HPI; No chest pain; edema; No palpitations, No syncope Gastrointestinal: no symptoms reported; No abdominal pain, No constipation, No diarrhea, No loss of appetite, No melena, No nausea, No vomiting Genitourinary: no symptoms reported Musculoskeletal: no symptoms reported Skin: no symptoms reported Psychiatric/Neurological: No Symptoms Reported Hematologic/Lymphatic: Anemia Immunological/Allergic: no symptoms reported Past Kwjvrsb-Sxrymv-Ovrkqn Hx Patient Social History Tobacco Use?: Yes Tobacco type used: Cigarettes Smoking Status: Former Smoker Substance use?: No Alcohol Use?: Yes Alcohol Frequency: Once in a while Pt feels they are or have been: No Immunizations Up To Date Influenza Vaccine Up-to-Date: Yes; Up-to-Date First/Initial COVID19 Vaccinat: YES Second COVID19 Vaccination Nakul: YES Third COVID19 Vaccination Date: YES Past Medical History Surgeries: Yes (1991 stomach surgery, 2003 back surgery, 2007 neck surgery, 11/15/11 EGD) Abdominal, Appendectomy, Bowel Surgery, Cardiac, Coronary Stent, Orthopedic Respiratory: No Currently Using CPAP: No Currently Using BIPAP: No Cardiac: Yes (RIGHT CAROTID ENDARTERECTOMY 2005;CATH WITH STENT 2018) Chronic Edema/Swelling, Coronary Artery Disease, High Cholesterol, Hypertension, Peripheral Vascular Neurological: Yes (HX OF [place] HAS L SIDED DROOPING; HX OF RIGHT CAROTD SURGERY 2005) Reproductive Disorders: No Genitourinary: Yes Benign Prostatic Hyperpl Gastrointestinal: Yes (new dx of CA, scheduled to have colon resection on 11/16/11. Had EGD 11/15/11) Musculoskeletal: Yes (Weakness;CHRONIC NECK AND BACK PAIN-S/P SURGERY C-SPINE AND L-SPINE) Degenerate Disk Disease, Chronic Back Pain Endocrine: No Cancer: Yes Colon Did You Recieve Any Treatments: Yes What Type of Treatment Did You: Surgical Intervention COLON RESECTION 2005--NO CHEMO OR RADIATION Psychosocial: No Blood Disorders: Yes (ANEMIA) Family Medical History SOCIAL HISTORY: -SMOKED 1 PPD, QUIT -ETOH--OCCASIONAL USE -DRUGS--DENIES USE PAST SURGICAL HISTORY: - APPENDECTOMY -"STOMACH" SURGERY 1991 - BACK SURGERY 2003 - COLON RESECTION FOR CANCER 2005 - RIGHT CAROTID ENDARTERECTOMY 2005 - NECK SURGERY 2007 HX COLON PERFORATION 1994 -EGD'S AND COLONOSCOPIES CARDIAC CATH 08/27/[address] CASTILLO: CONCLUSIONS: 1. Severe mid LAD stenosis treated successfully with a drug-eluting stent. 2. At least moderate diffuse disease in the RCA with negative FFR therefore PCI was deferred. 3. Dual antiplatelet therapy, aggressive secondary prevention measures. 4. Oikw-dn-oryhkkax bilateral PAD. STRESS TEST 05/14/[address] ZENDEJAS 1. Patient tolerated Lexiscan well 2. Diaphragmatic attenuation with fixed defect involving the inferior apical segment and inferior wall with no significant ischemia or infarction on SPECT images 3. Normal left ventricular size, EF 65 Physical Exam Vital Signs Vital Signs - First Documented 07/19/22 17:10 Temp 35.5 Pulse 76 Resp 18 B/P (MAP) 138/73 (94) Pulse Ox 94 Capillary Refill : Less Than 3 Seconds Height, Weight, BMI Height: 5'9.00" Weight: 170lbs. 0.0oz. [id number]; 23.00 BMI Method:Estimated General Appearance: No Apparent Distress, WD/WN HEENT: Other (SLIGHT LEFT FACIAL DROOP, BANDAGE TO LEFT CHEEK) Neck: Normal Inspection; No JVD Respiratory: Normal Breath Sounds, No Accessory Muscle Use, No Respiratory Distress Cardiovascular: Regular Rate, Rhythm, No JVD, No Murmur, Normal Peripheral Pulses Gastrointestinal: Normal Bowel Sounds, Non Tender, Soft Back: No CVA Tenderness, No Vertebral Tenderness Extremity: Normal Capillary Refill, Non Tender, No Calf Tenderness, No Pedal Edema, Pedal Edema (TRACE ANKLE EDEMA) Neurologic/Psychiatric: Alert, Oriented x3, No Motor/Sensory Deficits, Normal Mood/Affect, Other (MILD LEFT FACIAL DROOP--CHRONIC) Focused Exam Sepsis Stage: Sepsis Possible Source: Pulmonary Lactate Level 07/19/22 18:20: Lactic Acid Level 1.94 Time of Focused Exam: 18:55 Respiratory: Normal Breath Sounds (DECREASED IN RIGHT BASE), No Accessory Muscle Use, No Respiratory Distress Cardiovascular: Regular Rate, Rhythm, No JVD, No Murmur Capillary Refill: Less Than 3 Seconds Skin: normal color, warm/dry Lactic Acid Level Laboratory Tests Test 07/19/22 18:20 Lactic Acid Level 1.94 MMOL/L (0.50-2.00) Within 3hrs of presentation: Admin fluids, Admin ABX, Blood cultures prior to ABX's, Focus exam, Lactate level Procedures/Interventions Suture Size: 4-0 Progress/Results/Core Measures Suspected Sepsis SIRS Temperature: Pulse: 76 Respiratory Rate: 18 Laboratory Tests 07/19/22 18:20: White Blood Count 21.4H Blood Pressure 138 /73 Mean: 94 07/19/22 18:20: Lactic Acid Level 1.94 Laboratory Tests 07/19/22 18:20: Creatinine 1.43H, INR Comment 1.1, Platelet Count 253, Total Bilirubin 0.4 Results/Orders Lab Results Laboratory Tests Test 07/19/22 18:20 07/19/22 19:46 Range/Units White Blood Count 21.4 H 4.3-11.0 10^3/uL Red Blood Count 3.86 L 4.30-5.52 10^6/uL Hemoglobin 12.1 L 13.3-17.7 g/dL Hematocrit 37 L 40-54 % Mean Corpuscular Volume 96 80-99 fL Mean Corpuscular Hemoglobin 31 25-34 pg Mean Corpuscular Hemoglobin Concent 33 32-36 g/dL Red Cell Distribution Width 15.7 H 10.0-14.5 % Platelet Count 253 130-400 10^3/uL Mean Platelet Volume 9.7 9.0-12.2 fL Immature Granulocyte % (Auto) 1 % Neutrophils (%) (Auto) 84 H 42-75 % Lymphocytes (%) (Auto) 9 L 12-44 % Monocytes (%) (Auto) 4 0-12 % Eosinophils (%) (Auto) 1 0-10 % Basophils (%) (Auto) 1 0-10 % Neutrophils # (Auto) 18.1 H 1.8-7.8 10^3/uL Lymphocytes # (Auto) 2.0 1.0-4.0 10^3/uL Monocytes # (Auto) 0.9 0.0-1.0 10^3/uL Eosinophils # (Auto) 0.1 0.0-0.3 10^3/uL Basophils # (Auto) 0.1 0.0-0.1 10^3/uL Immature Granulocyte # (Auto) 0.1 0.0-0.1 10^3/uL Neutrophils % (Manual) 90 % Lymphocytes % (Manual) 6 % Monocytes % (Manual) 3 % Band Neutrophils 1 % Platelet Estimate NORMAL Poikilocytosis SLIGHT Prothrombin Time 14.2 12.2-14.7 SEC INR Comment 1.1 0.8-1.4 Activated Partial Thromboplast Time 29 24-35 SEC Sodium Level 136 135-145 MMOL/L Potassium Level 4.5 3.6-5.0 MMOL/L Chloride Level 103 98-107 MMOL/L Carbon Dioxide Level 22 21-32 MMOL/L Anion Gap 11 5-14 MMOL/L Blood Urea Nitrogen 27 H 7-18 MG/DL Creatinine 1.43 H 0.60-1.30 MG/DL Estimat Glomerular Filtration Rate 50 BUN/Creatinine Ratio 19 Glucose Level 106 H 70-105 MG/DL Lactic Acid Level 1.94 0.50-2.00 MMOL/L Calcium Level 9.3 8.5-10.1 MG/DL Corrected Calcium 9.9 8.5-10.1 MG/DL Magnesium Level 3.7 H 1.6-2.4 MG/DL Total Bilirubin 0.4 0.1-1.0 MG/DL Aspartate Amino Transf (AST/SGOT) 77 H 5-34 U/L Alanine Aminotransferase (ALT/SGPT) 47 0-55 U/L Alkaline Phosphatase 255 H 40-136 U/L Total Protein 6.4 6.4-8.2 GM/DL Albumin 3.3 3.2-4.5 GM/DL Amylase Level 87 25-125 U/L Lipase 61 8-78 U/L Influenza Type A (RT-PCR) Not Detected Not Detecte Influenza Type B (RT-PCR) Not Detected Not Detecte SARS-CoV-2 RNA (RT-PCR) Not Detected Not Detecte Urine Color YELLOW Urine Clarity CLEAR Urine pH 5.5 5-9 Urine Specific [place] 1.025 H 1.016-1.022 Urine Protein TRACE H NEGATIVE Urine Glucose (UA) NEGATIVE NEGATIVE Urine Ketones NEGATIVE NEGATIVE Urine Nitrite NEGATIVE NEGATIVE Urine Bilirubin NEGATIVE NEGATIVE Urine Urobilinogen 0.2 < = 1.0 MG/DL Urine Leukocyte Esterase NEGATIVE NEGATIVE Urine RBC (Auto) NEGATIVE NEGATIVE Urine RBC NONE /HPF Urine WBC 0-2 /HPF Urine Squamous Epithelial Cells 0-2 /HPF Urine Crystals PRESENT H /LPF Urine Amorphous Sediment FEW RAMON URATES H /LPF Urine Bacteria TRACE /HPF Urine Casts PRESENT /LPF Urine Hyaline Casts 0-2 H /LPF Urine Mucus NEGATIVE /LPF Urine Culture Indicated CULTURE PENDING My Orders Orders - BREEZY GARIBAY DO Ed Iv/Invasive Line Start (07/19/22 18:01) Monitor-Rhythm Ecg Trace Only (07/19/22 18:01) Chest 1 View, Ap/Pa Only (07/19/22 18:01) Covid 19 Inhouse Test (07/19/22 18:01) Cbc With Automated Diff (07/19/22 18:01) Comprehensive Metabolic Panel (07/19/22 18:01) Blood Culture (07/19/22 18:01) Sputum Culture (07/19/22 18:01) Urinalysis (07/19/22 18:01) Urine Culture (07/19/22 18:01) Protime With Inr (07/19/22 18:01) Partial Thromboplastin Time (07/19/22 18:01) Ed Iv/Invasive Line Start (07/19/22 18:01) Ed Iv/Invasive Line Start (07/19/22 18:01) Vital Signs Adult Sepsis Patie Q15M (07/19/22 18:01) Remove Rings In Anticipation O (07/19/22 18:01) Lactic Acid Analyzer (07/19/22 18:01) Influenza A And B By Pcr (07/19/22 18:01) Isolation Central Supply Req (07/19/22 18:01) Amylase (07/19/22 18:01) Lipase (07/19/22 18:01) Magnesium (07/19/22 18:01) Manual Differential (07/19/22 18:20) Cefepime Injection (Maxipime Injection) (07/19/22 18:30) Ct Myra Chest/Noang Abd-Pelv W (07/19/22 18:47) Iohexol Injection (Omnipaque 350 Mg/Ml 1 (07/19/22 19:00) Di Iv Start (Assessment) .IV start (07/19/22 18:56) Received Contrast (Hold Metformin- Contr (07/19/22 19:00) Ns (Ivpb) (Sodium Chloride 0.9% Ivpb Bag (07/19/22 19:00) Medications Given in ED Current Medications Medications Dose Ordered Sig/Tez Route Start Time Stop Time Status Last Admin Dose Admin Cefepime HCl 1000 mg/Sodium Chloride 50 ml @ 100 mls/hr ONCE ONCE IV 07/19/22 18:30 07/19/22 18:59 DC 07/19/22 18:54 100 MLS/HR Iohexol 100 ml ONCE ONCE IV 07/19/22 19:00 07/19/22 19:01 DC 07/19/22 19:15 75 ML Sodium Chloride 100 ml ONCE ONCE IV 07/19/22 19:00 07/19/22 19:01 DC 07/19/22 19:15 80 ML Vital Signs/I&O 07/19/22 17:10 Temp 35.5 Pulse 76 Resp 18 B/P (MAP) 138/73 (94) Pulse Ox 94 Capillary Refill : Less Than 3 Seconds Blood Pressure Mean: 94 Progress Note : Progress Note SEPSIS PROTOCOL INITIATED GIVEN: -IV FLUIDS -ANTIBIOTICS NO COUGH NO FEVER PT DID BECOME DYSPNEIC AND O2 SATS DROPPED TO 88% ON ROOM AIR ON AMBULATING TO BATHROOM PLACED ON O2 AT 2L/NC AND O2 SATS UP TO UPPER 90'S OTHER VITALS STABLE REVIEWED PRIOR RECORDS, INCLUDING ER VISITS, OUTPATIENT TESTS/PROCEDURES, ADMITS, H&P'S, DISCHARGE SUMMARIES. DISCUSSED TEST RESULTS, NEED FOR ADMIT, AND PT IS AGREEABLE TO PLAN Diagnostic Imaging Comments CXR--PER RADIOLOGIST REPORT AT 182 FINDINGS: There is persistent dense consolidation within the right lung base compatible with the probable prior middle lobe pneumonia on previous exam. A postobstructive process cannot be excluded given prior hilar and mediastinal adenopathy. The left lung remains clear. IMPRESSION: Dense abnormal nodular airspace consolidation within the right middle lobe compatible with pneumonia. This may however be reflective of a postobstructive process given known adenopathy and prior demonstrated liver lesions. CT ANGIOGRAM CHEST / ABDOMEN-PELVIS--PER RADIOLOGIST REPORT AT 2054 FINDINGS: CT CHEST: Stable pleural-based area of consolidation involving the inferior posterior right upper lobe. There are centrilobular nodules and patchy areas of consolidation involving the inferior aspect of the right upper lobe and middle lobe and patchy areas of consolidation most pronounced in the middle lobe region. These findings have slightly improved in the interim. There is also a small amount of involvement involving the anterior right lower lobe and right lung base which has also improved in the interim. There is note of bronchial wall thickening on the right side with occlusion of proximal right upper lobe, middle lobe and bronchi of the superior segment of right lower lobe which may be related to secretions or bronchial wall thickening, but endobronchial mass cannot be completely excluded. There is a small right pleural effusion which is stable. Stable lymphadenopathy involving the mediastinal and right hilar regions. There is no axillary lymphadenopathy. CT ABDOMEN/PELVIS: Again seen are multiple lesions throughout the liver of varying size which have increased in size. The largest one is in the right lobe of the liver and measures at least 7.3 cm in greatest axial dimension. Largest measured on the prior study measured roughly 5.9 cm in greatest dimension. There is also increase in number of these masses involving the liver. The spleen, pancreas and adrenal glands are unremarkable. Again seen masslike conglomerative lymph nodes in the naomy hepatis and portacaval region which have not significantly changed in the interim. There is periaortic lymphadenopathy which is also not significantly changed in interim. Again seen atherosclerotic disease involving the distal thoracic aorta without significant stenosis. There is no thoracic aortic aneurysm or dissection. There is no evidence of pulmonary embolism. There is no abdominal aortic aneurysm or dissection. There is at least 50% stenosis involving the origin of the celiac artery. There is at least 50% stenosis involving the SMA origin. There is at least 50-69% stenosis involving the origin left renal artery. The right renal artery is patent. The WENDY is patent, but there is concern for significant stenosis at its origin. There is severe stenosis involving the origins of the left external and internal iliac arteries. There is also an area concerning for severe stenosis involving the distal left common iliac artery. Multiple cystic areas involving both kidneys are again seen and atrophic changes. There is diffuse cortical thinning seen. Nonobstructive right renal stones are again noted. There is no hydronephrosis. Bladder is fluid-filled and otherwise unremarkable. The bladder is fluid-filled and unremarkable. Prostate gland is enlarged measuring 5.5 cm in transverse dimensions. Again seen is surgical anastomosis involving the mid transverse colon region with small bowel and colon seen. There is no intestinal obstruction. There is no abdominal ascites or intra-abdominal free air. There is no evidence of primary neoplasm in the abdomen. There are multiple surgical clips in the anterior abdominal region. The extra-abdominal and extra-pelvic soft tissue structures are unremarkable. There are degenerative spurs involving the thoracic spine. There is L4-L5 posterior lumbar interbody fusion and L4 laminectomies. There are degenerative spurs involving the lumbar spine and facet arthropathy. There is no bony lytic or sclerotic abnormality concerning for osseous metastasis. IMPRESSION: 1: Again seen is multiple masslike lymphadenopathy involving the right hilar region and mediastinal region which is not significantly changed. There is note of significant bronchial wall thickening and filling defects within multiple right lung bronchi. Mucus versus endobronchial lesions may be considered. Unable to exclude lung cancer as an etiology. Clinical correlation would better evaluate. 2: There is consolidation and infiltrative changes involving the right upper lobe, middle lobe and superior aspect of right lower lobe again noted which has slightly improved in the interim. Stable small right pleural effusion. 3: There is interval increased size and number of multiple masses throughout the liver concerning for metastatic disease. 4: Stable masslike lymphadenopathy in the naomy hepatis, portacaval region and upper periaortic regions concerning for metastatic lymph nodes. 5: There is no evidence of primary neoplasm in the abdomen or pelvis. There is no evidence of osseous metastatic disease. 6: There is no evidence pulmonary embolism or thoracic or abdominal aortic aneurysm or dissection. Reviewed: Reviewed by Me Departure Communication (Admissions) 2039--SPOKE WITH DR. AGUILAR, HOSPITALIST, ACCEPTS PT FOR ADMIT. ORDERS NOTED. Impression Primary Impression: Sepsis Additional Impressions: RIGHT SIDED PNEUMONIA Failure of outpatient treatment Neuroendocrine carcinoma metastatic to multiple sites Dehydration Chronic renal insufficiency Disposition: ADMITTED INPATIENT Condition: Stable Admissions Decision to Admit Reason: Admit from ER (General) Decision to Admit/Date: Jul 19, 2022 Time/Decision to Admit Time: 20:40 Departure-Patient Inst. Referrals: ALEKS AUGUSTE MD (PCP/Family) Primary Care Physician BREEZY GARIBAY DO Jul 19, 2022 18:08
--- NOTE | 2022-07-19 18:20 | Diagnostic Imaging Report ---
INDICATION: Leukocytosis. COMPARISON: Chest CT performed 07/08/2022. FINDINGS: There is persistent dense consolidation within the right lung base compatible with the probable prior middle lobe pneumonia on previous exam. A postobstructive process cannot be excluded given prior hilar and mediastinal adenopathy. The left lung remains clear. IMPRESSION: Dense abnormal nodular airspace consolidation within the right middle lobe compatible with pneumonia. This may however be reflective of a postobstructive process given known adenopathy and prior demonstrated liver lesions. Dictated by: Dictated on workstation # [id number]
[2022-07-19 18:25] LABS: BASOPHILS # (AUTO) 0.1 10^3/uL (0.0-0.1); BASOPHILS % (AUTO) 1 % (0-10); EOSINOPHILS # (AUTO) 0.1 10^3/uL (0.0-0.3); EOSINOPHILS % (AUTO) 1 % (0-10); HEMATOCRIT 37 % (40-54); HEMOGLOBIN 12.1 g/dL (13.3-17.7); LYMPHOCYTES % (AUTO) 9 % (12-44); MEAN CORPUSCULAR HEMOGLOBIN 31 pg (25-34); MEAN CORPUSCULAR HGB CONC 33 g/dL (32-36); MEAN CORPUSCULAR VOLUME 96 fL (80-99); MEAN PLATELET VOLUME 9.7 fL (9.0-12.2); MONOCYTES # (AUTO) 0.9 10^3/uL (0.0-1.0); MONOCYTES % (AUTO) 4 % (0-12); NEUTROPHILS # (AUTO) 18.1 10^3/uL (1.8-7.8); NEUTROPHILS % (AUTO) 84 % (42-75); PLATELET COUNT 253 10^3/uL (130-400); WHITE BLOOD COUNT 21.4 10^3/uL (4.3-11.0)
[2022-07-19] MEDS ORDERED: CEFEPIME INJECTION 1,000 MG in NS (IVPB) 50 ML IV ONE (18:30)
[2022-07-19 18:36] LABS: INR 1.1 (0.8-1.4); PROTHROMBIN TIME PATIENT 14.2 SEC (12.2-14.7)
[2022-07-19 18:38] LABS: ALBUMIN 3.3 GM/DL (3.2-4.5); POTASSIUM 4.5 MMOL/L (3.6-5.0)
[2022-07-19 18:39] LABS: CALCIUM 9.3 MG/DL (8.5-10.1)
[2022-07-19 18:40] LABS: TOTAL PROTEIN 6.4 GM/DL (6.4-8.2)
[2022-07-19 18:42] LABS: BILIRUBIN,TOTAL 0.4 MG/DL (0.1-1.0)
[2022-07-19 18:44] LABS: CREATININE SERUM 1.43 MG/DL (0.60-1.30)
[2022-07-19 18:47] LABS: MAGNESIUM 3.7 MG/DL (1.6-2.4)
[2022-07-19] MEDS ORDERED: IOHEXOL 350 MG/ML 100 ML (OMNIPAQUE 350) VIAL IV ONE (19:00)
[2022-07-19] MEDS ORDERED: NS 100 ML (IVPB) BAG IV ONE (19:00)
[2022-07-19] MEDS ORDERED: HOLD METFORMIN - RECEIVED CONTRAST 20 ML VIAL IV SCH (19:00)
[2022-07-19 19:07] LABS: BAND NEUTROPHILS 1 %; LYMPHOCYTES % (MANUAL) 6 %; MONOCYTES % (MANUAL) 3 %; NEUTROPHILS % (MANUAL) 90 %; PLATELET ESTIMATE NORMAL; POIKILOCYTOSIS SLIGHT
[2022-07-19 19:51] LABS: BILIRUBIN,URINE NEGATIVE (NEGATIVE); CLARITY,URINE CLEAR; COLOR,URINE YELLOW; GLUCOSE, URINE (UA) NEGATIVE (NEGATIVE); KETONES,URINE NEGATIVE (NEGATIVE); LEUKOCYTE ESTERASE ,URINE NEGATIVE (NEGATIVE); NITRITE,URINE NEGATIVE (NEGATIVE); PH,URINE 5.5 (5-9); PROTEIN,URINE TRACE (NEGATIVE)
[2022-07-19 20:12] LABS: AMORPHOUS SEDIMENT,UR FEW AMOR URATES /LPF; BACTERIA,URINE TRACE /HPF; HYALINE CASTS, URINE 0-2 /LPF; SQUAMOUS EPITHELIAL CELL,UR 0-2 /HPF; WBC,URINE 0-2 /HPF
--- NOTE | 2022-07-19 20:49 | Diagnostic Imaging Report ---
CLINICAL INDICATION: Patient with elevated WBC. Patient states had liver biopsy for possible cancer on Friday. Patient is currently taking antibiotics for possible pneumonia and cough and is on last day of doxycycline. Patient denies fevers. EXAM: CT angiogram of the chest, abdomen and pelvis performed with 75 cc Omnipaque 350 IV contrast. Coronal and oblique MIP images of the vasculature were created to better evaluate anatomy. Auto Exposure Controls were utilized during the CT exam to meet ALARA standards for radiation dose reduction. COMPARISON: CT scan of the chest with contrast dated 07/08/2022. FINDINGS: CT CHEST: Stable pleural-based area of consolidation involving the inferior posterior right upper lobe. There are centrilobular nodules and patchy areas of consolidation involving the inferior aspect of the right upper lobe and middle lobe and patchy areas of consolidation most pronounced in the middle lobe region. These findings have slightly improved in the interim. There is also a small amount of involvement involving the anterior right lower lobe and right lung base which has also improved in the interim. There is note of bronchial wall thickening on the right side with occlusion of proximal right upper lobe, middle lobe and bronchi of the superior segment of right lower lobe which may be related to secretions or bronchial wall thickening, but endobronchial mass cannot be completely excluded. There is a small right pleural effusion which is stable. Stable lymphadenopathy involving the mediastinal and right hilar regions. There is no axillary lymphadenopathy. CT ABDOMEN/PELVIS: Again seen are multiple lesions throughout the liver of varying size which have increased in size. The largest one is in the right lobe of the liver and measures at least 7.3 cm in greatest axial dimension. Largest measured on the prior study measured roughly 5.9 cm in greatest dimension. There is also increase in number of these masses involving the liver. The spleen, pancreas and adrenal glands are unremarkable. Again seen masslike conglomerative lymph nodes in the naomy hepatis and portacaval region which have not significantly changed in the interim. There is periaortic lymphadenopathy which is also not significantly changed in interim. Again seen atherosclerotic disease involving the distal thoracic aorta without significant stenosis. There is no thoracic aortic aneurysm or dissection. There is no evidence of pulmonary embolism. There is no abdominal aortic aneurysm or dissection. There is at least 50% stenosis involving the origin of the celiac artery. There is at least 50% stenosis involving the SMA origin. There is at least 50-69% stenosis involving the origin left renal artery. The right renal artery is patent. The WENDY is patent, but there is concern for significant stenosis at its origin. There is severe stenosis involving the origins of the left external and internal iliac arteries. There is also an area concerning for severe stenosis involving the distal left common iliac artery. Multiple cystic areas involving both kidneys are again seen and atrophic changes. There is diffuse cortical thinning seen. Nonobstructive right renal stones are again noted. There is no hydronephrosis. Bladder is fluid-filled and otherwise unremarkable. The bladder is fluid-filled and unremarkable. Prostate gland is enlarged measuring 5.5 cm in transverse dimensions. Again seen is surgical anastomosis involving the mid transverse colon region with small bowel and colon seen. There is no intestinal obstruction. There is no abdominal ascites or intra-abdominal free air. There is no evidence of primary neoplasm in the abdomen. There are multiple surgical clips in the anterior abdominal region. The extra-abdominal and extra-pelvic soft tissue structures are unremarkable. There are degenerative spurs involving the thoracic spine. There is L4-L5 posterior lumbar interbody fusion and L4 laminectomies. There are degenerative spurs involving the lumbar spine and facet arthropathy. There is no bony lytic or sclerotic abnormality concerning for osseous metastasis. IMPRESSION: 1: Again seen is multiple masslike lymphadenopathy involving the right hilar region and mediastinal region which is not significantly changed. There is note of significant bronchial wall thickening and filling defects within multiple right lung bronchi. Mucus versus endobronchial lesions may be considered. Unable to exclude lung cancer as an etiology. Clinical correlation would better evaluate. 2: There is consolidation and infiltrative changes involving the right upper lobe, middle lobe and superior aspect of right lower lobe again noted which has slightly improved in the interim. Stable small right pleural effusion. 3: There is interval increased size and number of multiple masses throughout the liver concerning for metastatic disease. 4: Stable masslike lymphadenopathy in the naomy hepatis, portacaval region and upper periaortic regions concerning for metastatic lymph nodes. 5: There is no evidence of primary neoplasm in the abdomen or pelvis. There is no evidence of osseous metastatic disease. 6: There is no evidence pulmonary embolism or thoracic or abdominal aortic aneurysm or dissection. Dictated by: Dictated on workstation # [id number]
[2022-07-19 22:36] VITALS: BP 137/65
[2022-07-19] MEDS ORDERED: LACTATED RINGERS 1,000 ML IV ONE (22:51)
[2022-07-19] MEDS: LACTATED RINGERS 1,000 ML IV SCH (23:13)
[2022-07-19] MEDS ORDERED: RT-ALBUTEROL/IPRATROPIUM 3 ML (DUONEB) VIAL ONE (23:13)
[2022-07-19] MEDS ORDERED: RT-ALBUTEROL/IPRATROPIUM 3 ML (DUONEB) VIAL INH PRN (23:15)
[2022-07-20] VITALS (7 sets, daily range): BP systolic 147–178; BP diastolic 66–82
[2022-07-20] MEDS ORDERED: RT-ALBUTEROL/IPRATROPIUM 3 ML (DUONEB) VIAL INH SCH (02:00)
[2022-07-20] MEDS ORDERED: CEFEPIME INJECTION 1,000 MG in NS (IVPB) 50 ML IV SCH (05:00)
[2022-07-20 05:49] LABS: BASOPHILS # (AUTO) 0.1 10^3/uL (0.0-0.1); BASOPHILS % (AUTO) 1 % (0-10); EOSINOPHILS # (AUTO) 0.1 10^3/uL (0.0-0.3); EOSINOPHILS % (AUTO) 0 % (0-10); HEMATOCRIT 33 % (40-54); LYMPHOCYTES # (AUTO) 2.2 10^3/uL (1.0-4.0); LYMPHOCYTES % (AUTO) 10 % (12-44); MEAN CORPUSCULAR HEMOGLOBIN 31 pg (25-34); MEAN CORPUSCULAR HGB CONC 33 g/dL (32-36); MEAN CORPUSCULAR VOLUME 94 fL (80-99); MEAN PLATELET VOLUME 9.8 fL (9.0-12.2); MONOCYTES # (AUTO) 1.2 10^3/uL (0.0-1.0); MONOCYTES % (AUTO) 5 % (0-12); NEUTROPHILS # (AUTO) 19.4 10^3/uL (1.8-7.8); NEUTROPHILS % (AUTO) 84 % (42-75); PLATELET COUNT 230 10^3/uL (130-400); WHITE BLOOD COUNT 23.1 10^3/uL (4.3-11.0)
[2022-07-20 06:09] LABS: ALBUMIN 2.8 GM/DL (3.2-4.5); BILIRUBIN,TOTAL 0.4 MG/DL (0.1-1.0); CALCIUM 8.9 MG/DL (8.5-10.1); CREATININE SERUM 1.26 MG/DL (0.60-1.30); POTASSIUM 4.3 MMOL/L (3.6-5.0); TOTAL PROTEIN 5.5 GM/DL (6.4-8.2)
[2022-07-20] MEDS: RT-ALBUTEROL SULF 2.5 MG/3 ML PRE-MIX VIAL INH SCH ×4 (07:15→18:27)
[2022-07-20] MEDS: RT-IPRATROPIUM (ATROVENT) 0.5MG/2.5ML AMP IH SCH ×4 (07:16→18:27)
--- NOTE | 2022-07-20 09:46 | Physical Therapy Evaluation ---
PT Evaluation-General Medical Diagnosis Admission Date Jul 19, 2022 at 22:25 Medical Diagnosis: sepsis, pneumonia Onset Date: Jul 19, 2022 Therapy Diagnosis Therapy Diagnosis: n/a Height/Weight Height (Feet): 5 Height (Inches): 9.00 Weight (Pounds): 170 Weight (Ounces): 0.0 Precautions Precautions/Isolations: Fall Prevention, Standard Precautions Weight Bear Status Right Lower Extremity: Right Full Weight Bearing Left Lower Extremity: Left Full Weight Bearing Referral Physician: Cherrie Reason for Referral: Evaluation/Treatment Medical History Pertinent Medical History: CAD, HTN Additional Medical History HLP, thyroid disease, prostate problems, colon CA with resection Current History Pt. sent to ED from Dr. Augustine's office with elevated WBC. Reviewed History: Yes Social History Current Living Status: Spouse Entry Into Home: Stairs With Railing Prior Prior Level of Function SCALE: Activities may be completed with or without assistive devices. 8-Linnfcgmpn-rkahrgx completes the activity by him/herself with no assistance from a helper. 5-Set-up or Clean-up Assistance-helper sets up or cleans up; patient completes activity. [place] assists only prior to or following the activity. 4-Supervision or Touching Assistance-helper provides verbal cues and/or touching/steadying and/or contact guard assistance as patient completes activity . Assistance may be provided throughout the activity or intermittently. 3-Partial/Moderate Assistance-helper does LESS THAN HALF the effort. [place] lifts, holds or supports trunk or limbs, but provides less than half the effort. 2-Substantial/Maximal Assistance-helper does MORE THAN HALF the effort. [place] lifts or holds trunk or limbs and provides more than half the effort. 6-Cgxnfjqqf-dptcdd does ALL the effort. Patient does none of the effort to complete the activity. Or, the assistance of 2 or more helpers is required for the patient to complete the activity. If activity was not attempted, code reason: 7-Patient Refused. 9-Not Applicable-not attempted and the patient did not perform the activity before the current illness, exacerbation or injury. 10-Not Attempted due to Environmental Limitations-(lack of equipment, weather restraints, etc.). 88-Not Attempted due to Medical Conditions or Safety Concerns. Bed Mobility: 6 Transfers (B,C,W/C): 6 Gait: 6 Stairs: 6 Indoor Mobility (Ambulation): Independent Stairs: Independent Prior Devices Use: None PT Evaluation-Current Subjective Pt. in bed, states he is up ad darci in his room and has made several trips to/from bathroom without issue. Pt. states "as of now I don't think I need you." Objective Patient Orientation: Person, Place, Time, Situation Attachments: Oxygen, IV ROM/Strength ROM Upper Extremities WNL ROM Lower Extremities WNL Strength Upper Extremities WNL Strength Lower Extremities grossly 5/5 Integumentary/Posture Integumentary grossly intact Bowel Incontinence: No Bladder Incontinence: No Posture upright Neuromuscular (Tone, Coordination, Reflexes) grossly intact Sensory Vision: Functional Hearing: Functional Sensation Right Upper Extremit: Intact Sensation Left Upper Extremity: Intact Sensation Right Lower Extremit: Intact Sensation Left Lower Extremity: Intact Transfers Sit to Lying (QC): 6 Lying to Sitting/Side of Bed(Q: 6 Sit to Stand (QC): 6 Toilet Transfer (QC): 6 Gait Does the Patient Walk?: Yes Mode of Locomotion: Walk Anticipated Mode of Locomotion: Walk Walk 10 feet (QC): 6 Distance: 2 x 15 ft Gait Assistive Device: None Comments/Gait Description pt. ambulated to/from bathroom (I). pt. negotiated O2 tubing, therapist assist with IV pole, however patient states he has been doing it himself. Balance Sitting Static: Good Sitting Dynamic: Good Standing Static: Good Standing Dynamic: Good Assessment/Needs Pt. is an 82 y.o. male with recent admit for sepsis/pneumonia. Pt. is currently (I) with all mobility and has been up ad darci in room. Therapist observed p atient with safe mobility in room. At this time, no further PT intervention needed at this time. Rehab Potential: Good PT Short Term Goals Short Term Goals Time Frame: Jul 20, 2022 Sit to lyin Lying to sitting on side of be: 6 Sit to stand: 6 Toilet transfer: 6 Walk 10 feet: 6 PT Plan Treatment/Plan Treatment Plan: Discontinue PT, goals met Treatment Duration: Jul 20, 2022 Frequency: Estimated Hrs Per Day: Other Patient and/or Family Agrees t: Yes D/C PT, goals met. Time Time In: 924 Time Out: 934 DATE: Jul 20, 2022 Total Billed Treatment Time: 10 Total Billed Treatment 1, EVL 10' ELIANA MAGANA PT Jul 20, 2022 09:46
[2022-07-20] MEDS ORDERED: PIPERACILLIN SODIUM/TAZOBACTAM 4.5 GM in NS (IVPB) 100 ML IV ONE (10:00)
[2022-07-20] MEDS: LACTATED RINGERS 1,000 ML IV SCH ×2 (10:07→20:09)
[2022-07-20] MEDS: PIPERACILLIN SODIUM/TAZOBACTAM 4.5 GM in NS (IVPB) 100 ML IV SCH ×2 (16:52→23:48)
[2022-07-20] MEDS ORDERED: RT-ALBUTEROL/IPRATROPIUM 3 ML (DUONEB) VIAL INH PRN (18:45)
[2022-07-20] MEDS ORDERED: BUDE10.7 INH (20:21)
[2022-07-20] MEDS ORDERED: METO50TA7 PO (20:21)
[2022-07-20] MEDS ORDERED: TMSL.4C PO (20:22)
[2022-07-20] MEDS ORDERED: TEMAZEPAM 15 MG (RESTORIL) CAP PO PRN (21:00)
--- NOTE | 2022-07-20 21:09 | History & Physical-Hospitalist ---
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 He was found to have leukoc ytosis on outpatient labs. He has been on Doxycycline for pneumonia. He has had a cough. He has no other complaints. He denies chest pain. He denies shortness of breath. He lives in [place] with his . Source: patient Exam Limitations: no limitations Date Seen 07/20/22 Time Seen by a Provider: 11:35 Attending Physician Néstor Augustine MD PCP Admitting Physician: Miriam Aguilar MD Attending Physician: Néstor Augustine MD Referring Physician Date of Admission Jul 19, 2022 at 22:25 Home Medications & Allergies Home Medications Reviewed patient Home Medication Reconciliation performed by pharmacy medication reconciliations school laboratory technician and/or nursing. Patients Allergies have been reviewed. Allergies Allergies Coded Allergies No Known Drug Allergies (Unverified11/15/11) Past Ukzgioi-Fuejpa-Eyvetu Hx Patient Social History Marrital Status: Tobacco Use?: Yes Tobacco type used: Cigarettes Smoking Status: Current Everyday Smoker Use of E-Cig and/or Vaping dev: No Substance use?: No Alcohol Use?: No Alcohol Frequency: Once in a while Pt feels they are or have been: No Immunizations Up To Date Date of Influenza Vaccine: Mar 31, 2022 First/Initial COVID19 Vaccinat: YES Second COVID19 Vaccination Nakul: YES Tetanus Booster (TDap): Less Than 5 Years Date of Pneumonia Vaccine: Apr 06, 2018 Current Status Advance Directives: No Communicates: Verbally Primary Language: Turkish Preferred Spoken Language: Turkish Is interpretation needed?: No Sensory deficits: Vision impairment Additional sensory deficits: READING GLASSES Implanted or Applied Medical D: Orthopedic hardware, Stents Past Medical History Surgeries: Abdominal, Appendectomy, Bowel Surgery, Cardiac, Coronary Stent, Orthopedic Currently Using CPAP: No Currently Using BIPAP: No Chronic Edema/Swelling, Coronary Artery Disease, High Cholesterol, Hypertension, Peripheral Vascular Benign Prostatic Hyperpl Degenerate Disk Disease, Chronic Back Pain Colon Did You Recieve Any Treatments: Yes What Type of Treatment Did You: Surgical Intervention COLON RESECTION 2005--NO CHEMO OR RADIATION Blood Disorders: Yes (ANEMIA) Family Medical History No Pertinent Family Hx SOCIAL HISTORY: -SMOKED 1 PPD, QUIT -ETOH--OCCASIONAL USE -DRUGS--DENIES USE PAST SURGICAL HISTORY: - APPENDECTOMY -"STOMACH" SURGERY 1991 - BACK SURGERY 2003 - COLON RESECTION FOR CANCER 2005 - RIGHT CAROTID ENDARTERECTOMY 2005 - NECK SURGERY 2007 HX COLON PERFORATION 1994 -EGD'S AND COLONOSCOPIES CARDIAC CATH 08/27/[address] CASTILLO: CONCLUSIONS: 1. Severe mid LAD stenosis treated successfully with a drug-eluting stent. 2. At least moderate diffuse disease in the RCA with negative FFR therefore PCI was deferred. 3. Dual antiplatelet therapy, aggressive secondary prevention measures. 4. Ezya-fa-kfjbbhrn bilateral PAD. STRESS TEST 05/14/[address] ZENDEJAS 1. Patient tolerated Lexiscan well 2. Diaphragmatic attenuation with fixed defect involving the inferior apical segment and inferior wall with no significant ischemia or infarction on SPECT images 3. Normal left ventricular size, EF 65 Review of Systems Constitutional: no symptoms reported EENTM: no symptoms reported Respiratory: cough Cardiovascular: no symptoms reported Gastrointestinal: no symptoms reported Physical Exam Physical Exam Vital Signs Vital Signs - First Documented 07/19/22 07/19/22 07/19/22 17:10 22:36 22:59 Temp 35.5 Pulse 76 Resp 18 B/P (MAP) 138/73 (94) Pulse Ox 94 O2 Delivery Nasal Cannula O2 Flow Rate 2.00 FiO2 28 Capillary Refill : Less Than 3 Seconds Height, Weight, BMI Height: 5'9.00" Weight: 170lbs. 0.0oz. 77.026544pe; 22.19 BMI Method:Estimated General Appearance: No Apparent Distress, WD/WN HEENT: PERRL/EOMI, Pharynx Normal Neck: Normal Inspection, Supple Respiratory: No Respiratory Distress, Crackles Cardiovascular: Regular Rate, Rhythm, No Murmur Gastrointestinal: Normal Bowel Sounds, Non Tender, Soft Extremity: Normal Inspection, No Pedal Edema Neurologic/Psychiatric: Alert, Normal Mood/Affect Skin: Normal Color, Warm/Dry Results Results/Procedures Labs Laboratory Tests 07/19/22 18:20 07/20/22 05:30 Patient resulted labs reviewed. Imaging: Reviewed Imaging Report Assessment/Plan Admission Diagnosis Postobstructive pneumonia Admission Status: Inpatient Order (span 2 midnights) Reason for Inpatient Admission: Failure of outpatient antibiotics Assessment and Plan Postobstructive pneumonia Metastatic neuroendocrine tumor to the liver and lung CT with multifocal pneumonia, right hilar lung mass, likely endobronchial lesions Following with Dr. Dhillon Not yet started on treatement Started on Zosyn IV fluids Obtain sputum culture HTN HLD CAD BPH Hypothyroidism Continue home meds DVT prophylaxis: Lovenox Diagnosis/Problems Diagnosis/Problems (1) Postobstructive pneumonia Status: Acute (2) Neuroendocrine carcinoma metastatic to multiple sites Status: Acute (3) HTN (hypertension) Status: Chronic (4) HLD (hyperlipidemia) Status: Chronic (5) CAD (coronary artery disease) Status: Chronic (6) BPH (benign prostatic hyperplasia) Status: Chronic (7) Hypothyroidism Status: Chronic MIRIAM AGUILAR MD Jul 20, 2022 21:09
[2022-07-20] MEDS: TAMSULOSIN 0.4 MG (FLOMAX) CAP PO SCH (22:11)
[2022-07-20] MEDS: ROSUVASTATIN 20 MG (CRESTOR) TABLET PO SCH (22:11)
[2022-07-20] MEDS: ENOXAPARIN 40 MG/0.4 ML (LOVENOX) SYR SC SCH (22:11)
[2022-07-20] MEDS: hydrALAZINE (APESOLINE) 20 MG/ML VIAL IV PRN (22:14)
[2022-07-21] VITALS (7 sets, daily range): BP systolic 116–170; BP diastolic 61–75
[2022-07-21 05:15] LABS: BASOPHILS # (AUTO) 0.2 10^3/uL (0.0-0.1); BASOPHILS % (AUTO) 1 % (0-10); EOSINOPHILS % (AUTO) 0 % (0-10); HEMATOCRIT 36 % (40-54); HEMOGLOBIN 11.7 g/dL (13.3-17.7); LYMPHOCYTES # (AUTO) 1.7 10^3/uL (1.0-4.0); LYMPHOCYTES % (AUTO) 6 % (12-44); MEAN CORPUSCULAR HEMOGLOBIN 31 pg (25-34); MEAN CORPUSCULAR HGB CONC 33 g/dL (32-36); MEAN CORPUSCULAR VOLUME 96 fL (80-99); MEAN PLATELET VOLUME 9.8 fL (9.0-12.2); MONOCYTES # (AUTO) 1.1 10^3/uL (0.0-1.0); MONOCYTES % (AUTO) 4 % (0-12); NEUTROPHILS # (AUTO) 27.6 10^3/uL (1.8-7.8); NEUTROPHILS % (AUTO) 90 % (42-75); PLATELET COUNT 246 10^3/uL (130-400)
[2022-07-21 05:22] LABS: WHITE BLOOD COUNT 30.8 10^3/uL (4.3-11.0)
[2022-07-21 05:33] LABS: ALBUMIN 2.9 GM/DL (3.2-4.5); BILIRUBIN,TOTAL 0.8 MG/DL (0.1-1.0); CALCIUM 9.2 MG/DL (8.5-10.1); CREATININE SERUM 1.36 MG/DL (0.60-1.30); POTASSIUM 4.1 MMOL/L (3.6-5.0); TOTAL PROTEIN 5.8 GM/DL (6.4-8.2)
[2022-07-21] MEDS: LACTATED RINGERS 1,000 ML IV SCH ×3 (06:02→20:05)
[2022-07-21] MEDS: RT-ALBUTEROL SULF 2.5 MG/3 ML PRE-MIX VIAL INH SCH ×4 (06:05→18:57)
[2022-07-21] MEDS: RT-IPRATROPIUM (ATROVENT) 0.5MG/2.5ML AMP IH SCH ×4 (07:20→18:57)
[2022-07-21] MEDS: PIPERACILLIN SODIUM/TAZOBACTAM 4.5 GM in NS (IVPB) 100 ML IV SCH ×3 (08:45→23:24)
[2022-07-21] MEDS: meTOproloL SUCCINATE 50 MG (TOPROL XL) TAB PO SCH (08:45)
[2022-07-21] MEDS: guaiFENesin/DM (ROBITUSSIN DM) 10 ML UDC PO PRN ×3 (08:45→20:05)
[2022-07-21] MEDS: UMECLIDINIUM BROMIDE (INCRUSE ELLIPTA) 7'S IH SCH (10:01)
[2022-07-21] MEDS: RT--FLUTICASONE/SALMETEROL 232-14 (AIRDUO RespiCLICK) IH SCH ×2 (10:02→22:11)
--- NOTE | 2022-07-21 11:44 | Progress Note - Hospitalist ---
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 He was found to have leukocytosis on outpatient labs. He has been on Doxycycline for pneumonia. He has had a cough. He has no other complaints. He denies chest pain. He denies shortness of breath. He lives in [place] with his . Subjective/Events-last exam He is feeling about the same. He is coughing up sputum. He has some shortness of breath. He is hoping to go home tomorrow. Focused Exam Lactate Level 07/19/22 18:20: Lactic Acid Level 1.94 Time of Focused Exam: 18:55 Objective Exam Vital Signs Vital Signs Date Time Temp Pulse Resp B/P (MAP) Pulse Ox O2 Delivery O2 Flow Rate FiO2 07/21/22 11:18 37.4 89 20 132/64 (86) 95 Nasal Cannula 2.00 07/19/22 22:59 28 Capillary Refill : Less Than 3 Seconds General Appearance: No Apparent Distress, WD/WN Respiratory: No Respiratory Distress, Decreased Breath Sounds Cardiovascular: Regular Rate, Rhythm, No Murmur Gastrointestinal: Normal Bowel Sounds, Soft Extremity: Normal Inspection, No Pedal Edema Neurologic/Psychiatric: Alert, Normal Mood/Affect Skin: Normal Color, Warm/Dry Results/Procedures Lab Laboratory Tests 07/21/22 04:55 Patient resulted labs reviewed. Imaging: Reviewed Imaging Report Assessment/Plan Assessment and Plan Assess & Plan/Chief Complaint Postobstructive pneumonia Metastatic neuroendocrine tumor to the liver and lung CT with multifocal pneumonia, right hilar lung mass, likely endobronchial lesions Following with Dr. Dhillon, not yet started on treatement Not septic, afebtile, WBC trending up Continue Zosyn If WBC continues to increase, or clinically worsens, consider expanding antibiotic coverage IV fluids Sputum culture pending HTN HLD CAD BPH Hypothyroidism Continue home meds DVT prophylaxis: Lovenox Diagnosis/Problems Diagnosis/Problems (1) Postobstructive pneumonia Status: Acute (2) Neuroendocrine carcinoma metastatic to multiple sites Status: Acute (3) HTN (hypertension) Status: Chronic (4) HLD (hyperlipidemia) Status: Chronic (5) CAD (coronary artery disease) Status: Chronic (6) BPH (benign prostatic hyperplasia) Status: Chronic (7) Hypothyroidism Status: Chronic MIRIMA AGUILAR MD Jul 21, 2022 11:44
[2022-07-21] MEDS: TAMSULOSIN 0.4 MG (FLOMAX) CAP PO SCH (20:05)
[2022-07-21] MEDS: ROSUVASTATIN 20 MG (CRESTOR) TABLET PO SCH (20:05)
[2022-07-21] MEDS: ENOXAPARIN 40 MG/0.4 ML (LOVENOX) SYR SC SCH (20:05)
[2022-07-21] MEDS: hydrALAZINE (APESOLINE) 20 MG/ML VIAL IV PRN (20:06)
[2022-07-22] MEDS: RT-ALBUTEROL SULF 2.5 MG/3 ML PRE-MIX VIAL INH SCH ×4 (02:09→13:52)
[2022-07-22] MEDS: RT-IPRATROPIUM (ATROVENT) 0.5MG/2.5ML AMP IH SCH ×4 (02:10→13:52)
[2022-07-22 03:22] VITALS: BP 147/57
[2022-07-22] MEDS: LACTATED RINGERS 1,000 ML IV SCH (05:43)
[2022-07-22 05:45] LABS: BASOPHILS # (AUTO) 0.2 10^3/uL (0.0-0.1); BASOPHILS % (AUTO) 1 % (0-10); EOSINOPHILS # (AUTO) 0.1 10^3/uL (0.0-0.3); EOSINOPHILS % (AUTO) 0 % (0-10); HEMATOCRIT 34 % (40-54); LYMPHOCYTES # (AUTO) 2.1 10^3/uL (1.0-4.0); LYMPHOCYTES % (AUTO) 7 % (12-44); MEAN CORPUSCULAR HEMOGLOBIN 31 pg (25-34); MEAN CORPUSCULAR HGB CONC 33 g/dL (32-36); MEAN CORPUSCULAR VOLUME 96 fL (80-99); MEAN PLATELET VOLUME 10.3 fL (9.0-12.2); MONOCYTES # (AUTO) 1.1 10^3/uL (0.0-1.0); MONOCYTES % (AUTO) 4 % (0-12); NEUTROPHILS # (AUTO) 26.8 10^3/uL (1.8-7.8); NEUTROPHILS % (AUTO) 88 % (42-75); PLATELET COUNT 238 10^3/uL (130-400)
[2022-07-22 06:01] LABS: WHITE BLOOD COUNT 30.5 10^3/uL (4.3-11.0)
[2022-07-22 06:17] LABS: LYMPHOCYTES % (MANUAL) 7 %; MONOCYTES % (MANUAL) 2 %; NEUTROPHILS % (MANUAL) 91 %; RBC MORPH NORMAL
[2022-07-22 06:19] LABS: ALBUMIN 2.8 GM/DL (3.2-4.5); BILIRUBIN,TOTAL 0.7 MG/DL (0.1-1.0); CREATININE SERUM 1.43 MG/DL (0.60-1.30); TOTAL PROTEIN 5.6 GM/DL (6.4-8.2)
[2022-07-22] MEDS: UMECLIDINIUM BROMIDE (INCRUSE ELLIPTA) 7'S IH SCH (06:50)
[2022-07-22] MEDS: RT--FLUTICASONE/SALMETEROL 232-14 (AIRDUO RespiCLICK) IH SCH (06:50)
[2022-07-22 07:33] VITALS: BP 157/72
[2022-07-22] MEDS: PIPERACILLIN SODIUM/TAZOBACTAM 4.5 GM in NS (IVPB) 100 ML IV SCH (08:14)
[2022-07-22] MEDS: guaiFENesin/DM (ROBITUSSIN DM) 10 ML UDC PO PRN (08:14)
[2022-07-22] MEDS: meTOproloL SUCCINATE 50 MG (TOPROL XL) TAB PO SCH (08:14)
--- NOTE | 2022-07-22 10:04 | Discharge Inst-Simple/Standard ---
Discharge Inst-Standard Discharge Medications New, Converted or Re-Newed RX: Transmitted to Pharmacy Patient Instructions/Follow Up Plan of Care/Instructions/FU: Please continue to take your medications as written. Please follow up with your primary care doctor to follow up this hospital stay. Activity as Tolerated: Yes Discharge Diet: No Restrictions Return to The Hospital For: Chest pain, shortness of breath, fever, weakness, if you feel you are getting worse. MOIRA GOMEZ MD Jul 22, 2022 10:04
[2022-07-22] MEDS ORDERED: AMOX1TAB12 PO (10:08)
--- NOTE | 2022-07-22 10:09 | Discharge Summary ---
Diagnosis/Chief Complaint Date of Admission Jul 19, 2022 at 22:25 Date of Discharge Discharge Date: Jul 22, 2022 Admission Diagnosis Postobstructive pneumonia Primary Care Néstor Augustine MD Discharge Diagnosis (1) Postobstructive pneumonia Status: Acute (2) Neuroendocrine carcinoma metastatic to multiple sites Status: Acute (3) HTN (hypertension) Status: Chronic (4) HLD (hyperlipidemia) Status: Chronic (5) CAD (coronary artery disease) Status: Chronic (6) BPH (benign prostatic hyperplasia) Status: Chronic (7) Hypothyroidism Status: Chronic Discharge Summary Discharge Physical Exam Allergies: Coded Allergies: No Known Drug Allergies (Unverified , 11/15/11) Vitals & I&Os Vital Signs Date Time Temp Pulse Resp B/P (MAP) Pulse Ox O2 Delivery O2 Flow Rate FiO2 07/22/22 08:00 Nasal Cannula 2.00 07/22/22 07:33 37.0 101 18 157/72 (100) 07/22/22 06:52 92 07/19/22 22:59 28 Hospital Course Labs (last 24 hrs) Laboratory Tests 07/22/22 05:00: White Blood Count 30.5*H, Red Blood Count 3.50L, Hemoglobin 11.0L, Hematocrit 34L, Mean Corpuscular Volume 96, Mean Corpuscular Hemoglobin 31, Mean Corpuscular Hemoglobin Concent 33, Red Cell Distribution Width 15.9H, Platelet Count 238, Mean Platelet Volume 10.3, Immature Granulocyte % (Auto) 1, Neutrophils (%) (Auto) 88H, Lymphocytes (%) (Auto) 7L, Monocytes (%) (Auto) 4, Eosinophils (%) (Auto) 0, Basophils (%) (Auto) 1, Neutrophils # (Auto) 26.8H, Lymphocytes # (Auto) 2.1, Monocytes # (Auto) 1.1H, Eosinophils # (Auto) 0.1, Basophils # (Auto) 0.2H, Immature Granulocyte # (Auto) 0.2H, Neutrophils % (Manual) 91, Lymphocytes % (Manual) 7, Monocytes % (Manual) 2, Blood Morphology Comment NORMAL, Sodium Level 136, Potassium Level 4.0, Chloride Level 106, Carbon Dioxide Level 19L, Anion Gap 11, Blood Urea Nitrogen 19H, Creatinine 1.43H, Estimat Glomerular Filtration Rate 50, BUN/Creatinine Ratio 13, Glucose Level 75, Calcium Level 9.0, Corrected Calcium 10.0, Total Bilirubin 0.7, Aspartate Amino Transf (AST/SGOT) 87H, Alanine Aminotransferase (ALT/SGPT) 42, Alkaline Phosphatase 221H, Total Protein 5.6L, Albumin 2.8L Microbiology 07/19/22 Urine Culture - Final, Complete NO GROWTH 07/19/22 Blood Culture - Preliminary, Resulted No growth Patient resulted labs reviewed. Pending Labs Laboratory Tests 07/22/22 05:00: White Blood Count 30.5, Red Blood Count 3.50, Hemoglobin 11.0, Hematocrit 34, M zev Corpuscular Volume 96, Mean Corpuscular Hemoglobin 31, Mean Corpuscular Hemoglobin Concent 33, Red Cell Distribution Width 15.9, Platelet Count 238, Mean Platelet Volume 10.3, Immature Granulocyte % (Auto) 1, Neutrophils (%) (Auto) 88, Lymphocytes (%) (Auto) 7, Monocytes (%) (Auto) 4, Eosinophils (%) (Auto) 0, Basophils (%) (Auto) 1, Neutrophils # (Auto) 26.8, Lymphocytes # (Au to) 2.1, Monocytes # (Auto) 1.1, Eosinophils # (Auto) 0.1, Basophils # (Auto) 0.2, Immature Granulocyte # (Auto) 0.2, Neutrophils % (Manual) 91, Lymphocytes % (Manual) 7, Monocytes % (Manual) 2, Blood Morphology Comment NORMAL, Sodium Level 136, Potassium Level 4.0, Chloride Level 106, Carbon Dioxide Level 19, Anion Gap 11, Blood Urea Nitrogen 19, Creatinine 1.43, Estimat Glomerular Filtration Rate 50, BUN/Creatinine Ratio 13, Glucose Level 75, Calcium Level 9.0, Corrected Calcium 10.0, Total Bilirubin 0.7, Aspartate Amino Transf (AST/SGOT) 87, Alanine Aminotransferase (ALT/SGPT) 42, Alkaline Phosphatase 221, Total Protein 5.6, Albumin 2.8 Imaging: Reviewed Imaging Report Discharge Home Medications: Active Scripts Active Amox Tr-K Clv 875-125 mg Tab (Amoxicillin/Potassium Clav) 875 Mg-125 Mg Tablet 1 Each PO BID Reported Flomax (Tamsulosin HCl) 0.4 Mg Cap 0.4 Mg PO HS Breztri Aerosphere Inhaler (Budesonide/Glycopyr/Formoterol) 160 Mcg-9 Mcg-4.8 Mcg/Actuation Hfa.aer.ad 1 Puff INH BID Metoprolol Succinate 50 Mg Tab.er.24h 50 Mg PO DAILY Temazepam 15 Mg Capsule 15 Mg PO HS PRN Rosuvastatin Calcium 40 Mg Tablet 40 Mg PO DAILY Etodolac 400 Mg Tablet 400 Mg PO PRN Lomotil 2.5-0.025 mg Tablet (Diphenoxylate HCl/Atropine) 1 Each Tablet 1 Each PO DAILY PRN PRN HYDROcodone/APAP 10/325 TABLET (Acetaminophen/Hydrocodone Bitart) 1 Each Tablet 1 Tab PO Q6H PRN MDD 5 Instructions to patient/family Please see electronic discharge instructions given to patient. MOIRA GOMEZ MD Jul 22, 2022 10:09
[2022-07-22 11:17] VITALS: BP 154/67
[2022-07-22 13:55] VITALS: BP 154/67
--- NOTE | 2022-07-22 18:38 | Physician Query Clarification ---
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 Obinna Del Rosario? Yes; will Sepsis in the setting of pneumonia, present on admission in the Progress Notes No; will continue current documentation in the Progress Notes Other; will document explanation of clinical findings Clinically undetermined; no explanation for clinical findings Please clarify and document your clinical opinion in the Progress Notes and Discharge Summary including the definitive and/or presumptive diagnosis, (suspected or probable), related to the above clinical findings. Please include clinical findings supporting your diagnosis. In responding to this query, please exercise your independent professional judgment. The purpose of this communication is to more accurately reflect the complexity of your patients condition. The fact that a question is asked does not imply that any particular answer is desired or expected. Thank you for timely response to this clarification. Poornima Melvin, MSN, RN Clinical Security Associate [phone] [email or web address] PHYSICIAN RESPONSE: Based on the clinical findings in the record, please respond to the query above on this document as an addendum. Physician Response: Physician Response No If you have questions please contact: Jingle Writer: Ext: Thank you for your time and cooperation. Clinical Security Associate/Jingle Writer This is a permanent part of the medical record POORNIMA MELVIN Jul 22, 2022 18:38 MIRIAM AGUILAR MD Jul 22, 2022 20:58
== END 2022-07-22 14:05 | disposition home or self-care (01) | DRG 194 ==
LOC: EDUNIT# 16:41 → ER 16:42 → 4TH 22:25
PROVIDERS: ADMIT Internal Medicine; ATTEND Internal Medicine
DX: J18.9 Pneumonia, unspecified organism (principal); C78.00 Secondary malignant neoplasm of unspecified lung; C7A.8 Other malignant neuroendocrine tumors; C78.7 Secondary malignant neoplasm of liver and intrahepatic bile duct; I25.10 Atherosclerotic heart disease of native coronary artery without angina pectoris; N40.0 Benign prostatic hyperplasia without lower urinary tract symptoms; E03.9 Hypothyroidism, unspecified; Z79.899 Other long term (current) drug therapy; Z95.5 Presence of coronary angioplasty implant and graft; E78.00 Pure hypercholesterolemia, unspecified; G89.29 Other chronic pain; M54.9 Dorsalgia, unspecified; Z85.038 Personal history of other malignant neoplasm of large intestine; Z90.49 Acquired absence of other specified parts of digestive tract; Z20.822 Contact with and (suspected) exposure to COVID-19; E86.0 Dehydration; N18.9 Chronic kidney disease, unspecified; F17.210 Nicotine dependence, cigarettes, uncomplicated; I12.9 Hypertensive chronic kidney disease with stage 1 through stage 4 chronic kidney disease, or unspecified chronic kidney disease
CPT/HCPCS: 36415; 71045; 71275; 74177; 80053; 81000; 82150; 83605; 83690; 83735; 85007; 85025; 85027; 85610; 85730; 87040; 87088; 87636; 93041; 94640; 94760; 94761

== ENCOUNTER → 2022-07-25 | Outpatient (CLI) | payer MEDICARE ==
[~2022-07-25] MED LIST changes: +AMOX1TAB12 PO; +BUDE10.7 INH; +GADOTERATE 0.5 MMOL/ML (CLARISCAN) 15 ML VIAL IV ONE; +METO50TA7 PO; +TMSL.4C PO
--- NOTE | 2022-07-25 15:41 | Diagnostic Imaging Report ---
PROCEDURE: MR imaging of the brain with and without contrast. TECHNIQUE: Multiplanar, multisequence MR imaging of the brain was performed with and without contrast. INDICATION: Headaches. History of lung cancer. COMPARISON: None. FINDINGS: There is a focal area of T2 hyperintense signal with corresponding enhancement measuring 0.6 x 0.7 cm in the mid left cerebellum. No associated mass effect or midline shift. No other area of abnormal enhancement is seen in the brain. No acute ischemia or hemorrhage. Focal and confluent T2 hyperintense signal seen in the periventricular and subcortical white matter. Old lacunar infarcts are seen in the periventricular white matter adjacent to the anterior horns of the lateral ventricles. The ventricles, cortical sulci and basilar cisterns are symmetric and unremarkable. The sellar and suprasellar regions have a normal appearance. The paranasal sinuses and mastoid air cells demonstrate normal signal characteristics. Bilateral lens implants are visualized. The scalp and calvarium have a normal appearance. IMPRESSION: 1. Findings concerning for intracranial metastatic disease with a small focus of enhancement with corresponding T2 hyperintense signal in the left cerebellum. No associated midline shift or mass effect. Recommend continued follow-up, as indicated. 2. No acute ischemia or hemorrhage. 3. 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 Dictated by: Dictated on workstation # [id number]
== END ==
LOC: RAD 13:22
PROVIDERS: ATTEND Internal Medicine Hematology & Oncology
DX: I67.82 Cerebral ischemia (principal); I63.81 Other cerebral infarction due to occlusion or stenosis of small artery; C78.7 Secondary malignant neoplasm of liver and intrahepatic bile duct; Z85.118 Personal history of other malignant neoplasm of bronchus and lung
CPT/HCPCS: 70553

== ENCOUNTER 2022-07-28 13:33 | Inpatient (IN) | payer MEDICARE ==
[~2022-07-28] VITALS: Ht 180 cm; Wt 68.9 kg
[~2022-07-28 13:33] MED LIST changes: -GADOTERATE 0.5 MMOL/ML (CLARISCAN) 15 ML VIAL IV ONE
--- NOTE | 2022-07-28 13:55 | ED General ---
General Chief Complaint: Altered Mental Status Stated Complaint: AMS Nursing Triage Note: pt arrived via [facility] with altered mental status with O2 of 88% RA. pt was placed on 4L NC by EMS. pt was diagnoised a couple days ago with brain cancer. Source of Information: Patient, EMS Exam Limitations: Other (clinical condition) History of Present Illness Date Seen by Provider: Jul 28, 2022 Time Seen by Provider: 13:40 Initial Comments Here by EMS with report of altered mental status. EMS called by family members when they could not wake him up. Unknown last known well time. EMS reports that initial O2 sat in the field was 88% on room air and did improve to mid 90s on 4 L nasal cannula. EMS does report that the patient has been diagnosed with brain cancer although her unsure what therapy will be done. Family has not arrived yet. Patient does answer to his name but otherwise does not answer questions. He is quite edematous and appears to have some crackles when breathing. Timing/Duration: Other (Unknown timeframe) Severity: Moderate, Severe Allergies and Home Medications Allergies Coded Allergies: No Known Drug Allergies (Unverified , 11/15/11) Patient Home Medication List Home Medication List Reviewed: Yes Amoxicillin/Potassium Clav (Amox Tr-K Clv 875-125 mg Tab) 875 Mg-125 Mg Tablet, 1 EACH PO BID Prescribed by: MOIRA LUCAS on 07/22/22 100 Budesonide/Glycopyr/Formoterol (Breztri Aerosphere Inhaler) 160 Mcg-9 Mcg-4.8 Mcg/Actuation Hfa.aer.ad, 1 PUFF INH BID, (Reported) Entered as Reported by: MIKALA BERRY on 07/20/222020 Diphenoxylate HCl/Atropine (Lomotil 2.5-0.025 mg Tablet) 1 Each Tablet, 1 EACH PO DAILY PRN PRN for ABDOMINAL PAIN, (Reported) Entered as Reported by: KATHERINE LOTT on 08/27/18 1005 Etodolac (Etodolac) 400 Mg Tablet, 400 MG PO for BACK PAIN, (Reported) Entered as Reported by: KATHERINE LOTT on 08/27/18 1005 Hydrocodone Bit/Acetaminophen (HYDROcodone/APAP 10/325 TABLET) 1 Each Tablet, 1 TAB PO Q6H PRN for PAIN-MODERATE, (Reported) Entered as Reported by: KATHERINE LOTT on 08/27/18 1005 Metoprolol Succinate (Metoprolol Succinate) 50 Mg Tab.er.24h, 50 MG PO DAILY, (Reported) Entered as Reported by: MIKALA BERRY on 07/20/222020 Rosuvastatin Calcium (Rosuvastatin Calcium) 40 Mg Tablet, 40 MG PO DAILY, (Reported) Entered as Reported by: KATHERINE LOTT on 08/27/18 100 Tamsulosin HCl (Flomax) 0.4 Mg Cap, 0.4 MG PO HS, (Reported) Entered as Reported by: MIKALA BERRY on 07/20/222021 Temazepam (Temazepam) 15 Mg Capsule, 15 MG PO HS PRN for SLEEP, (Reported) Entered as Reported by: KATHERINE LOTT on 08/27/18 100 Review of Systems Review of Systems Constitutional: No fever; weakness Unable to complete review of systems due to altered mental status Past Ajqwnqb-Tfdtrk-Gmjvqn Hx Patient Social History Tobacco Use?: No Substance use?: No Alcohol Use?: No Immunizations Up To Date Influenza Vaccine Up-to-Date: Yes; Up-to-Date First/Initial COVID19 Vaccinat: YES Second COVID19 Vaccination Nakul: YES Third COVID19 Vaccination Date: YES Past Medical History Surgeries: Yes (1991 stomach surgery, 2003 back surgery, 2007 neck surgery, 11/15/11 EGD) Abdominal, Appendectomy, Bowel Surgery, Cardiac, Coronary Stent, Orthopedic Respiratory: No Currently Using CPAP: No Currently Using BIPAP: No Cardiac: Yes (RIGHT CAROTID ENDARTERECTOMY 2005;CATH WITH STENT 2018) Chronic Edema/Swelling, Coronary Artery Disease, High Cholesterol, Hypertension, Peripheral Vascular Neurological: Yes (HX OF C[place] HAS L SIDED DROOPING; HX OF RIGHT CAROTD SURGERY 2005) Reproductive Disorders: No Genitourinary: Yes Benign Prostatic Hyperpl Gastrointestinal: Yes (new dx of CA, scheduled to have colon resection on 11/16/11. Had EGD 11/15/11) Musculoskeletal: Yes (Weakness;CHRONIC NECK AND BACK PAIN-S/P SURGERY C-SPINE AND L-SPINE) Degenerate Disk Disease, Chronic Back Pain Endocrine: No Cancer: Yes Colon Did You Recieve Any Treatments: Yes What Type of Treatment Did You: Surgical Intervention Psychosocial: No Blood Disorders: Yes (ANEMIA) Family Medical History Reviewed Nursing Family Hx No Pertinent Family Hx SOCIAL HISTORY: -SMOKED 1 PPD, QUIT -ETOH--OCCASIONAL USE -DRUGS--DENIES USE PAST SURGICAL HISTORY: - APPENDECTOMY -"STOMACH" SURGERY 1991 - BACK SURGERY 2003 - COLON RESECTION FOR CANCER 2005 - RIGHT CAROTID ENDARTERECTOMY 2005 - NECK SURGERY 2007 HX COLON PERFORATION 1994 -EGD'S AND COLONOSCOPIES CARDIAC CATH 08/27/[address] CASTILLO: CONCLUSIONS: 1. Severe mid LAD stenosis treated successfully with a drug-eluting stent. 2. At least moderate diffuse disease in the RCA with negative FFR therefore PCI was deferred. 3. Dual antiplatelet therapy, aggressive secondary prevention measures. 4. Kziw-oz-toflwvlj bilateral PAD. STRESS TEST 05/14/[address] ZENDEJAS 1. Patient tolerated Lexiscan well 2. Diaphragmatic attenuation with fixed defect involving the inferior apical segment and inferior wall with no significant ischemia or infarction on SPECT images 3. Normal left ventricular size, EF 65 Physical Exam Vital Signs Vital Signs - First Documented 07/28/22 16:08 FiO2 60 Capillary Refill : Less Than 3 Seconds Height, Weight, BMI Height: 5'9.00" Weight: 170lbs. 0.0oz. 77.194015zo; 20.00 BMI Method:Estimated General Appearance: No Apparent Distress, WD/WN HEENT: PERRL/EOMI Neck: Non Tender, Supple Respiratory: Crackles (Throughout both lung [place]); No Wheezing Cardiovascular: Regular Rate, Rhythm, No Murmur Gastrointestinal: Non Tender, Soft Back: Normal Inspection, No CVA Tenderness Extremity: Pedal Edema (3+ edema to above knees bilateral) Neurologic/Psychiatric: Other (Patient will wake to answer name but really does not otherwise answer questions. Seems quite lethargic and weak.) Skin: Normal Color, Warm/Dry Focused Exam Lactate Level 07/28/22 13:45: Lactic Acid Level 1.98 Lactic Acid Level Laboratory Tests Test 07/28/22 13:45 Lactic Acid Level 1.98 MMOL/L (0.50-2.00) Procedures/Interventions Suture Size: 4-0 Progress/Results/Core Measures Suspected Sepsis SIRS Temperature: Pulse: 74 Respiratory Rate: Laboratory Tests 07/28/22 13:45: White Blood Count 24.5H Blood Pressure 122 /64 Mean: 83 07/28/22 13:45: Lactic Acid Level 1.98 Laboratory Tests 07/28/22 13:45: Creatinine 1.10, INR Comment 1.0, Platelet Count 231, Total Bilirubin 0.3 Results/Orders Lab Results Laboratory Tests Test 07/28/22 13:45 07/28/22 14:05 07/28/22 14:50 Range/Units White Blood Count 24.5 H 4.3-11.0 10^3/uL Red Blood Count 3.57 L 4.30-5.52 10^6/uL Hemoglobin 11.3 L 13.3-17.7 g/dL Hematocrit 35 L 40-54 % Mean Corpuscular Volume 97 80-99 fL Mean Corpuscular Hemoglobin 32 25-34 pg Mean Corpuscular Hemoglobin Concent 33 32-36 g/dL Red Cell Distribution Width 16.1 H 10.0-14.5 % Platelet Count 231 130-400 10^3/uL Mean Platelet Volume 9.9 9.0-12.2 fL Immature Granulocyte % (Auto) 1 % Neutrophils (%) (Auto) 86 H 42-75 % Lymphocytes (%) (Auto) 7 L 12-44 % Monocytes (%) (Auto) 5 0-12 % Eosinophils (%) (Auto) 1 0-10 % Basophils (%) (Auto) 1 0-10 % Neutrophils # (Auto) 21.0 H 1.8-7.8 10^3/uL Lymphocytes # (Auto) 1.8 1.0-4.0 10^3/uL Monocytes # (Auto) 1.2 H 0.0-1.0 10^3/uL Eosinophils # (Auto) 0.2 0.0-0.3 10^3/uL Basophils # (Auto) 0.2 H 0.0-0.1 10^3/uL Immature Granulocyte # (Auto) 0.2 H 0.0-0.1 10^3/uL Neutrophils % (Manual) 88 % Lymphocytes % (Manual) 9 % Eosinophils % (Manual) 1 % Band Neutrophils 2 % Platelet Estimate NORMAL Blood Morphology Comment NORMAL Prothrombin Time 13.6 12.2-14.7 SEC INR Comment 1.0 0.8-1.4 Activated Partial Thromboplast Time 24 24-35 SEC Sodium Level 133 L 135-145 MMOL/L Potassium Level 4.5 3.6-5.0 MMOL/L Chloride Level 99 98-107 MMOL/L Carbon Dioxide Level 24 21-32 MMOL/L Anion Gap 10 5-14 MMOL/L Blood Urea Nitrogen 16 7-18 MG/DL Creatinine 1.10 0.60-1.30 MG/DL Estimat Glomerular Filtration Rate 68 BUN/Creatinine Ratio 15 Glucose Level 98 70-105 MG/DL Lactic Acid Level 1.98 0.50-2.00 MMOL/L Calcium Level 8.8 8.5-10.1 MG/DL Corrected Calcium 9.8 8.5-10.1 MG/DL Magnesium Level 2.1 1.6-2.4 MG/DL Total Bilirubin 0.3 0.1-1.0 MG/DL Aspartate Amino Transf (AST/SGOT) 149 H 5-34 U/L Alanine Aminotransferase (ALT/SGPT) 71 H 0-55 U/L Alkaline Phosphatase 465 H 40-136 U/L Troponin I 0.032 H <0.028 NG/ML C-Reactive Protein High Sensitivity 2.58 H 0.00-0.50 MG/DL B-Type Natriuretic Peptide 106.3 H <100.0 PG/ML Total Protein 5.7 L 6.4-8.2 GM/DL Albumin 2.7 L 3.2-4.5 GM/DL Urine Color YELLOW Urine Clarity CLEAR Urine pH 6.0 5-9 Urine Specific [place] 1.020 1.016-1.022 Urine Protein 1+ H NEGATIVE Urine Glucose (UA) NEGATIVE NEGATIVE Urine Ketones NEGATIVE NEGATIVE Urine Nitrite NEGATIVE NEGATIVE Urine Bilirubin NEGATIVE NEGATIVE Urine Urobilinogen 0.2 < = 1.0 MG/DL Urine Leukocyte Esterase NEGATIVE NEGATIVE Urine RBC (Auto) NEGATIVE NEGATIVE Urine RBC 0-2 /HPF Urine WBC 0-2 /HPF Urine Squamous Epithelial Cells RARE /HPF Urine Crystals PRESENT H /LPF Urine Amorphous Sediment FEW RAMON URATES H /LPF Urine Bacteria FEW H /HPF Urine Casts PRESENT /LPF Urine Hyaline Casts 0-2 H /LPF Urine Mucus SMALL H /LPF Urine Culture Indicated CULTURE PENDING Blood Gas Puncture Site RIGHT RADIAL Blood Gas Patient Temperature 35.9 Arterial Blood pH 7.28 *L 7.37-7.43 Arterial Blood Partial Pressure CO2 66 H 35-45 MMHG Arterial Blood Partial Pressure O2 75 L 79-93 MMHG Arterial Blood HCO3 31 H 23-27 MMOL/L Arterial Blood Total CO2 32.7 H 21.0-31.0 MMOL/L Arterial Blood Oxygen Saturation 94 94-100 % Arterial Blood Base Excess 4.0 H -2.5-2.5 MMOL/L Geronimo Test POSITIVE Blood Gas Ventilator Setting NO Blood Gas Inspired Oxygen 4 L My Orders Orders - JUSTIN MILLS MD Cbc With Automated Diff (07/28/22 13:48) Comprehensive Metabolic Panel (07/28/22 13:48) Blood Culture (07/28/22 13:48) Sputum Culture (07/28/22 13:48) Urinalysis (07/28/22 13:48) Urine Culture (07/28/22 13:48) Protime With Inr (07/28/22 13:48) Partial Thromboplastin Time (07/28/22 13:48) Chest 1 View, Ap/Pa Only (07/28/22 13:48) Ed Iv/Invasive Line Start (07/28/22 13:48) Vital Signs Adult Sepsis Patie Q15M (07/28/22 13:48) O2 (07/28/22 13:48) Remove Rings In Anticipation O (07/28/22 13:48) Lactic Acid Analyzer (07/28/22 13:48) Bnp [place] (07/28/22 13:48) Hs C Reactive Protein (07/28/22 13:48) Magnesium (07/28/22 13:48) Troponin I Alli (07/28/22 13:48) Ekg Tracing (07/28/22 13:48) O2 (07/28/22 13:48) Monitor-Rhythm Ecg Trace Only (07/28/22 13:48) Ct Head Wo (07/28/22 13:48) Arterial Blood Gas (07/28/22 13:55) Manual Differential (07/28/22 13:45) Albuterol Pre-Mix Nebs (Rt) (Proventil (07/28/22 15:08) Albuterol/Ipra Inhalation Soln (Duoneb I (07/28/22 15:15) Svn Small Volume Nebulizer (07/28/22 15:08) Svn Small Volume Nebulizer (07/28/22 15:08) Piperacillin Sodium/Tazobactam (Zosyn Vi (07/28/22 15:30) Vancomycin Injection (Vancomycin Injecti (07/28/22 15:30) Vancomycin Injection (Vancomycin Injecti (07/28/22 16:30) Dexamethasone Injection (Decadron Inje (07/28/22 15:30) Arterial Blood Draw - Obtain (07/28/22 ) Ns Iv 500 Ml (Sodium Chloride 0.9%) (07/28/22 16:00) Albuterol Pre-Mix Nebs (Rt) (Proventil (07/28/22 15:57) Svn Small Volume Nebulizer (07/28/22 15:57) Medications Given in ED Current Medications Medications Dose Ordered Sig/Tez Route Start Time Stop Time Status Last Admin Dose Admin Albuterol/ Ipratropium 3 ml ONCE ONCE INH 07/28/22 15:15 07/28/22 15:16 DC 07/28/22 15:31 3 ML Dexamethasone Sodium Phosphate 10 mg ONCE ONCE IV 07/28/22 15:30 07/28/22 15:31 DC 07/28/22 15:50 10 MG Piperacillin Sod/ Tazobactam Sod 4.5 gm/Sodium Chloride 100 ml @ 200 mls/hr ONCE ONCE IV 07/28/22 15:30 07/28/22 15:59 DC 07/28/22 15:52 200 MLS/HR Sodium Chloride 500 ml @ 0 mls/hr Q0M ONCE IV 07/28/22 16:00 07/28/22 16:01 DC 07/28/22 16:18 500 MLS/HR Vancomycin HCl 500 mg/Sodium Chloride 100 ml @ 100 mls/hr ONCE ONCE IV 07/28/22 16:30 07/28/22 17:29 DC 07/28/22 16:45 100 MLS/HR Vancomycin HCl 750 mg/Sodium Chloride 100 ml @ 100 mls/hr ONCE ONCE IV 07/28/22 15:30 07/28/22 16:29 DC 07/28/22 15:52 100 MLS/HR Vital Signs/I&O 07/28/22 07/28/22 07/28/22 07/28/22 13:35 13:35 15:35 15:36 Temp 35.9 Pulse 74 B/P (MAP) 122/64 (83) Pulse Ox 96 96 95 95 O2 Delivery Nasal Cannula Nasal Cannula Nasal Cannula Nasal Cannula O2 Flow Rate 4.00 4.00 4.00 4.00 07/28/22 07/28/22 16:08 16:09 Pulse Ox 96 96 O2 Delivery Vapotherm Vapotherm O2 Flow Rate 40.00 40.00 FiO2 60 60 Capillary Refill : Less Than 3 Seconds Blood Pressure Mean: 83 Progress Note : Progress Note Seen and evaluated on arrival by EMS. EMS report obtained by me as well as jacques hull. I did review findings from field with EMS providers. I, labs including CBC, CMP, CRP, UA, blood cultures, lactic acid, troponin and BNP ordered. Chest x-ray and EKG ordered. I do have concerns about volume overload so we will hold fluids at this point. He does have history of metastatic lung disease to brain and liver with the brain findings noted recently from previous hospitalization. I did discuss the case with the hospitalist on-call currently as she was the discharging physician. She states that he was quite active, alert and aware at discharge and this is significant change from normal. He was full code at that time and so we will keep that in place. Monitor patient. Differential includes brain lesion including metastatic lesion versus intracranial hemorrhage, sepsis, pneumonia, hypercarbia, heart failure, cardiac event, electrolyte abnormality 1450: Labs reviewed and CBC shows elevated white count of 24.5 which is down from last CBC from last hospitalization of 30,000. Hemoglobin 11.3. He does have a left shift. Chemistry shows normal electrolytes with LFTs showing abnormal increased values throughout. Troponin slightly elevated at 0.032. BNP is elevated at 106. CRP is slightly elevated at 2.58. UA is negative and coags are normal Chest x-ray shows increasing consolidation on the right lung on my interpretation. Pending radiology results. CT head shows no obvious intracranial hemorrhage on my interpretation. Pending radiology results. 1520: Radiology results noted below and consistent with my interpretation. I did have long conversation with the family regarding current therapy and care. and daughter at bedside. was very concerned that he needs to get his chemotherapy tomorrow. We did have long discussion regarding current health of this patient as well as interaction with chemotherapy when he has this sick. She understands that that would be dangerous at this point and that we need to try to get him medically stable before that. We will initiate DuoNeb and an albuterol neb and also initiate Vapotherm. ABG done and does show slight acidosis and PCO2 of 66. He may be having some narcosis. I will try Vapotherm versus BiPAP due to somnolence. I did have lengthy discussion with family regarding CODE STATUS. states that patient declined DNR and wants full resuscitation at this point. I did state that we would follow his wishes with full code but if things looked futile that the provider in charge of his care would talk to the family honestly about where he is at to rediscussed CODE STATUS if indicated. They were appreciative of the hard conversation and understanding. Patient will be admitted. I will initiate Zosyn 4.5 g IV and vancomycin weight-based dosing of 1250 mg IV. We will give Decadron 10 mg IV prior to antibiotic dosing. I do have concerns about postobstructive pneumonia on the right and Decadron may shrink any inflammation which can help potentially with postobstructive pneumonia. I have called for admission. Monitor patient. 1557: We will repeat albuterol 2 more times. I have discussed the case with Dr. Lucas and she accepts patient for admission, inpatient status, critical condition and agrees with treatment so far. We are pending ICU bed. This was discussed with the family who verbalized understanding. Monitor patient. 1731: We do have ICU bed and patient is going to ICU now. I did call report to me to the [facility] doctor on-call for consult. I have ordered ABG to be followed in the ICU. Family appreciative of care. ECG Initial ECG Impression Date: Jul 28, 2022 Initial ECG Impression Time: 13:57 Initial ECG Rate: 74 Initial ECG Rhythm: Normal Sinus Comment Sinus rhythm with left axis deviation and left anterior fascicular block with left atrial abnormality. No evidence of ST elevation WI. Interpreted by me. Diagnostic Imaging Diagonstic Imaging: Xray Plain Films/CT/US/NM/MRI: chest Comments [facility]. [place], [place] NAME: EVIE MAKI Yefri HOLLOWAY MED REC#: [id number] PT STATUS: REG ER : 1940 PHYSICIAN: JUSTIN MILLS MD ADMIT DATE: 07/28/22/ER Signed Date of Exam:07/28/22 CHEST 1 VIEW, AP/PA ONLY INDICATION: Liver cancer, metastatic disease Compared with radiograph 07/19/2022. FINDINGS: Dense right perihilar lung consolidation is progressed in the interim. There is a small right pleural effusion which may have mildly increased. The left lung remains generally clear. Heart size stable. IMPRESSION: Worsened right perihilar mixed interstitial and airspace disease with a similar small right pleural effusion. Dictated by: Dictated on workstation # [id number] Dict: 07/28/22 1431 Trans: 07/28/22 1454 [id number] Interpreted by: CAROLYN AN Electronically signed by: CAROLYN AN 07/28/22 1454 Diagonstic Imaging: CT Plain Films/CT/US/NM/MRI: head Comments [facility], [place] NAME: EVIE MAKI III MED REC#: [id number] PT STATUS: REG ER : 1940 PHYSICIAN: JUSTIN MILLS MD ADMIT DATE: 07/28/22/ER Signed Date of Exam:07/28/22 CT HEAD WO PROCEDURE: CT head without contrast. TECHNIQUE: Multiple contiguous axial images were obtained through the brain without the use of intravenous contrast. Auto Exposure Controls were utilized during the CT exam to meet ALARA standards for radiation dose reduction. DATE: July 28, 2022. COMPARISON: MRI brain July 25, 2022. INDICATION: 82-year-old male, history of malignancy with left cerebellar lesion seen on recent MRI. FINDINGS: There is no CT apparent abnormality at site of previously noted abnormal signal in the left cerebellum on prior MRI. There are probable findings of chronic small vessel ischemic disease. The ventricles and cerebral spinal fluid spaces are of normal size and configuration for the patient's age. There is no mass effect or midline shift. There is no acute intracranial hemorrhage. There is no abnormal extra-axial fluid collection. The visualized portions of the paranasal sinuses, mastoid air cells and middle ears are well aerated. IMPRESSION: 1. No CT head apparent finding at site of previously noted abnormal signal in the left cerebellum on prior MRI. 2. No CT apparent acute intracranial abnormality. Dictated by: Dictated on workstation # [id number] Dict: 07/28/22 1428 Trans: 07/28/22 1435 [id number] Interpreted by: NERISSA BECKER MD Electronically signed by: NERISSA BECKER MD 07/28/22 1435 Critical Care Note Critical Care Start Time: 13:40 Stop Time: 17:32 Total Time (minutes) 45 minutes excluding separately billable procedures. See progress note for details. Departure Communication (Admissions) Time/Spoke to Admitting Phy: 15:38 Impression Primary Impression: Postobstructive pneumonia Additional Impressions: Acute respiratory failure with hypoxia and hypercarbia Lung cancer, primary, with metastasis from lung to other site Qualified Codes: C34.91 - Malignant neoplasm of unspecified part of right bronchus or lung Disposition: ADMITTED INPATIENT Condition: Critical Admissions Decision to Admit Reason: Admit from ER (General) Decision to Admit/Date: Jul 28, 2022 Time/Decision to Admit Time: 15:38 Departure-Patient Inst. Referrals: ALEKS AUGUSTE MD (PCP/Family) Primary Care Physician Copy Copies To 1: ALEKS AUGUSTE MD, TIMOTHY D MD Jul 28, 2022 13:55
[2022-07-28 13:59] LABS: BASOPHILS # (AUTO) 0.2 10^3/uL (0.0-0.1); BASOPHILS % (AUTO) 1 % (0-10); EOSINOPHILS # (AUTO) 0.2 10^3/uL (0.0-0.3); EOSINOPHILS % (AUTO) 1 % (0-10); HEMATOCRIT 35 % (40-54); HEMOGLOBIN 11.3 g/dL (13.3-17.7); LYMPHOCYTES # (AUTO) 1.8 10^3/uL (1.0-4.0); LYMPHOCYTES % (AUTO) 7 % (12-44); MEAN CORPUSCULAR HEMOGLOBIN 32 pg (25-34); MEAN CORPUSCULAR HGB CONC 33 g/dL (32-36); MEAN CORPUSCULAR VOLUME 97 fL (80-99); MEAN PLATELET VOLUME 9.9 fL (9.0-12.2); MONOCYTES # (AUTO) 1.2 10^3/uL (0.0-1.0); MONOCYTES % (AUTO) 5 % (0-12); NEUTROPHILS % (AUTO) 86 % (42-75); PLATELET COUNT 231 10^3/uL (130-400); WHITE BLOOD COUNT 24.5 10^3/uL (4.3-11.0)
[2022-07-28 14:04] LABS: ALBUMIN 2.7 GM/DL (3.2-4.5); POTASSIUM 4.5 MMOL/L (3.6-5.0)
[2022-07-28 14:06] LABS: CALCIUM 8.8 MG/DL (8.5-10.1)
[2022-07-28 14:07] LABS: TOTAL PROTEIN 5.7 GM/DL (6.4-8.2)
[2022-07-28 14:08] LABS: PROTHROMBIN TIME PATIENT 13.6 SEC (12.2-14.7)
[2022-07-28 14:09] LABS: BILIRUBIN,TOTAL 0.3 MG/DL (0.1-1.0)
[2022-07-28 14:11] LABS: CREATININE SERUM 1.1 MG/DL (0.60-1.30)
[2022-07-28 14:14] LABS: MAGNESIUM 2.1 MG/DL (1.6-2.4)
[2022-07-28 14:14] LABS: BILIRUBIN,URINE NEGATIVE (NEGATIVE); CLARITY,URINE CLEAR; COLOR,URINE YELLOW; GLUCOSE, URINE (UA) NEGATIVE (NEGATIVE); KETONES,URINE NEGATIVE (NEGATIVE); LEUKOCYTE ESTERASE ,URINE NEGATIVE (NEGATIVE); NITRITE,URINE NEGATIVE (NEGATIVE); PROTEIN,URINE 1+ (NEGATIVE)
--- NOTE | 2022-07-28 14:34 | Diagnostic Imaging Report ---
PROCEDURE: CT head without contrast. TECHNIQUE: Multiple contiguous axial images were obtained through the brain without the use of intravenous contrast. Auto Exposure Controls were utilized during the CT exam to meet ALARA standards for radiation dose reduction. DATE: July 28, 2022. COMPARISON: MRI brain July 25, 2022. INDICATION: 82-year-old male, history of malignancy with left cerebellar lesion seen on recent MRI. FINDINGS: There is no CT apparent abnormality at site of previously noted abnormal signal in the left cerebellum on prior MRI. There are probable findings of chronic small vessel ischemic disease. The ventricles and cerebral spinal fluid spaces are of normal size and configuration for the patient's age. There is no mass effect or midline shift. There is no acute intracranial hemorrhage. There is no abnormal extra-axial fluid collection. The visualized portions of the paranasal sinuses, mastoid air cells and middle ears are well aerated. IMPRESSION: 1. No CT head apparent finding at site of previously noted abnormal signal in the left cerebellum on prior MRI. 2. No CT apparent acute intracranial abnormality. Dictated by: Dictated on workstation # [id number]
[2022-07-28 14:41] LABS: AMORPHOUS SEDIMENT,UR FEW AMOR URATES /LPF; BACTERIA,URINE FEW /HPF; HYALINE CASTS, URINE 0-2 /LPF; RBC,URINE 0-2 /HPF; SQUAMOUS EPITHELIAL CELL,UR RARE /HPF; WBC,URINE 0-2 /HPF
--- NOTE | 2022-07-28 14:46 | Diagnostic Imaging Report ---
INDICATION: Liver cancer, metastatic disease Compared with radiograph 07/19/2022. FINDINGS: Dense right perihilar lung consolidation is progressed in the interim. There is a small right pleural effusion which may have mildly increased. The left lung remains generally clear. Heart size stable. IMPRESSION: Worsened right perihilar mixed interstitial and airspace disease with a similar small right pleural effusion. Dictated by: Dictated on workstation # [id number]
[2022-07-28 14:55] LABS: ABG OXYGEN SATURATION 94 % (94-100); ABG PCO2 66 MMHG (35-45); ABG PO2 75 MMHG (79-93); ABG TCO2 32.7 MMOL/L (21.0-31.0)
[2022-07-28 14:57] LABS: ABG PH 7.28 (7.37-7.43); ALLENS TEST POSITIVE; INSPIRED O2 4 L; PATIENT TEMP 35.9; VENTILATOR NO
[2022-07-28] MEDS ORDERED: RT-ALBUTEROL SULF 2.5 MG/3 ML PRE-MIX VIAL INH STA ×2 (15:08→15:57)
[2022-07-28 15:12] LABS: BAND NEUTROPHILS 2 %; NEUTROPHILS % (MANUAL) 88 %
[2022-07-28 15:13] LABS: EOSINOPHILS % (MANUAL) 1 %; LYMPHOCYTES % (MANUAL) 9 %; PLATELET ESTIMATE NORMAL; RBC MORPH NORMAL
[2022-07-28] MEDS ORDERED: RT-ALBUTEROL/IPRATROPIUM 3 ML (DUONEB) VIAL INH ONE (15:15)
[2022-07-28] MEDS ORDERED: VANCOMYCIN INJECTION 750 MG in NS (IVPB) 100 ML IV ONE (15:30)
[2022-07-28] MEDS ORDERED: PIPERACILLIN SODIUM/TAZOBACTAM 4.5 GM in NS (IVPB) 100 ML IV ONE (15:30)
[2022-07-28] MEDS ORDERED: NS IV 500 ML 500 ML IV ONE (16:00)
[2022-07-28] MEDS ORDERED: VANCOMYCIN INJECTION 500 MG in NS (IVPB) 100 ML IV ONE (16:30)
--- NOTE | 2022-07-28 17:43 | Tele-ICU Consult ---
Progress Note 82 y/o male recently diagnosed with lung cancer who has liver and brain mets Brains mets detected by MRI done sereal days ago which shows a cerebellar lesion. Due to start chemotherapy soon Patient presented to the ED with AMS and hypoxemia CT head shows no midline shift or bleed CXR shows PNA started on zosyn and vanc WBC 24,000 IMP: AMS, hypoxemia secondary to PNA PLAN: ICU admission BIPAP as needed or vapotherm antibiotics Focused Exam Lactate Level 07/28/22 13:45: Lactic Acid Level 1.98 Height, Weight, BMI Height: 5'9.00" Weight: 170lbs. 0.0oz. 77.217482oy; 20.00 BMI Method:Estimated Lactic Acid Level Laboratory Tests Test 07/28/22 13:45 Lactic Acid Level 1.98 MMOL/L (0.50-2.00) Labs Laboratory Tests 07/28/22 13:45 Results Results/Procedures Labs Laboratory Tests 07/28/22 13:45 Patient resulted labs reviewed. Results Labs Labs Laboratory Tests 07/28/22 13:45: White Blood Count 24.5H, Red Blood Count 3.57L, Hemoglobin 11.3L, Hematocrit 35L , Mean Corpuscular Volume 97, Mean Corpuscular Hemoglobin 32, Mean Corpuscular Hemoglobin Concent 33, Red Cell Distribution Width 16.1H, Platelet Count 231, Mean Platelet Volume 9.9, Immature Granulocyte % (Auto) 1, Neutrophils (%) (Auto) 86H, Lymphocytes (%) (Auto) 7L, Monocytes (%) (Auto) 5, Eosinophils (%) (Auto) 1, Basophils (%) (Auto) 1, Neutrophils # (Auto) 21.0H, Lymphocytes # (Auto) 1.8, Monocytes # (Auto) 1.2H, Eosinophils # (Auto) 0.2, Basophils # (Auto) 0.2H, Immature Granulocyte # (Auto) 0.2H, Neutrophils % (Manual) 88, Lymphocytes % (Manual) 9, Eosinophils % (Manual) 1, Band Neutrophils 2, Platelet Estimate NORMAL, Blood Morphology Comment NORMAL, Prothrombin Time 13.6, INR Comment 1.0, Activated Partial Thromboplast Time 24, Sodium Level 133L, Potassium Level 4.5, Chloride Level 99, Carbon Dioxide Level 24, Anion Gap 10, Blood Urea Nitrogen 16, Creatinine 1.10, Estimat Glomerular Filtration Rate 68, BUN/Creatinine Ratio 15, Glucose Level 98, Lactic Acid Level 1.98, Calcium Level 8.8, Corrected Calcium 9.8, Magnesium Level 2.1, Total Bilirubin 0.3, Aspartate Amino Transf (AST/SGOT) 149H, Alanine Aminotransferase (ALT/SGPT) 71H, Alkaline Phosphatase 465H, Troponin I 0.032H, C-Reactive Protein High Sensitivity 2.58H, B-Type Natriuretic Peptide 106.3H, Total Protein 5.7L, Albumin 2.7L 07/28/22 14:05: Urine Color YELLOW, Urine Clarity CLEAR, Urine pH 6.0, Urine Specific [place] 1.020, Urine Protein 1+H, Urine Glucose (UA) NEGATIVE, Urine Ketones NEGATIVE, Urine Nitrite NEGATIVE, Urine Bilirubin NEGATIVE, Urine Urobilinogen 0.2, Urine Leukocyte Esterase NEGATIVE, Urine RBC (Auto) NEGATIVE, Urine RBC 0-2, Urine WBC 0-2, Urine Squamous Epithelial Cells RARE, Urine Crystals PRESENTH, Urine Amorphous Sediment FEW RAMON URATESH, Urine Bacteria FEWH, Urine Casts PRESENT, Urine Hyaline Casts 0-2H, Urine Mucus SMALLH, Urine Culture Indicated CULTURE PENDING 07/28/22 14:50: Blood Gas Puncture Site RIGHT RADIAL, Blood Gas Patient Temperature 35.9, Arterial Blood pH 7.28*L, Arterial Blood Partial Pressure CO2 66H, Arterial Bl ood Partial Pressure O2 75L, Arterial Blood HCO3 31H, Arterial Blood Total CO2 32.7H, Arterial Blood Oxygen Saturation 94, Arterial Blood Base Excess 4.0H, Geronimo Test POSITIVE, Blood Gas Ventilator Setting NO, Blood Gas Inspired Oxygen 4 L FRANCIS PARSON MD Jul 28, 2022 17:43
[2022-07-28] MEDS ORDERED: NS IV 1000 ML 1,000 ML ONE (18:25)
[2022-07-28] MEDS: NS IV 1000 ML 1,000 ML IV SCH (18:27)
[2022-07-28 18:51] LABS: ABG BASE EXCESS 2.7 MMOL/L (-2.5-2.5); ABG OXYGEN SATURATION 94 % (94-100); ABG PCO2 54 MMHG (35-45); ABG PO2 72 MMHG (79-93); ABG TCO2 29.9 MMOL/L (21.0-31.0)
[2022-07-28 18:53] LABS: ABG PH 7.33 (7.37-7.43); ALLENS TEST POSITIVE; PATIENT TEMP 36.6; VENTILATOR NO
[2022-07-28 19:28] VITALS: BP 122/64
[2022-07-28] MEDS ORDERED: RT-ALBUTEROL SULF 2.5 MG/3 ML PRE-MIX VIAL INH PRN (20:00)
[2022-07-28] MEDS ORDERED: RT-IPRATROPIUM (ATROVENT) 0.5MG/2.5ML AMP IH PRN (20:00)
[2022-07-28] MEDS ORDERED: NS IV 500 ML 500 ML IV PRN (20:00)
[2022-07-28] MEDS: RT-ALBUTEROL SULF 2.5 MG/3 ML PRE-MIX VIAL INH SCH (21:19)
[2022-07-28] MEDS: RT-IPRATROPIUM (ATROVENT) 0.5MG/2.5ML AMP IH SCH (21:19)
[2022-07-28] MEDS ORDERED: NOREPINEPHRINE 8 MG/250 ML 250 ML IV SCH (21:30)
[2022-07-28] MEDS ORDERED: EPINEPHrine 1 MG INJECTION 4 MG in NS (IVPB) 248 ML IV SCH (21:30)
[2022-07-28] MEDS: VASOPRESSIN INJECTION 20 UNIT in NS (IVPB) 100 ML IV SCH (22:03)
[2022-07-28] MEDS: PIPERACILLIN SODIUM/TAZOBACTAM 4.5 GM in NS (IVPB) 100 ML IV SCH (22:09)
[2022-07-29] MEDS: RT-IPRATROPIUM (ATROVENT) 0.5MG/2.5ML AMP IH SCH ×6 (02:47→21:51)
[2022-07-29] MEDS: RT-ALBUTEROL SULF 2.5 MG/3 ML PRE-MIX VIAL INH SCH ×6 (02:48→21:51)
[2022-07-29 03:57] LABS: BASOPHILS # (AUTO) 0.1 10^3/uL (0.0-0.1); BASOPHILS % (AUTO) 0 % (0-10); EOSINOPHILS % (AUTO) 0 % (0-10); HEMATOCRIT 36 % (40-54); HEMOGLOBIN 11.6 g/dL (13.3-17.7); LYMPHOCYTES # (AUTO) 0.9 10^3/uL (1.0-4.0); LYMPHOCYTES % (AUTO) 3 % (12-44); MEAN CORPUSCULAR HEMOGLOBIN 31 pg (25-34); MEAN CORPUSCULAR HGB CONC 32 g/dL (32-36); MEAN CORPUSCULAR VOLUME 98 fL (80-99); MONOCYTES # (AUTO) 0.5 10^3/uL (0.0-1.0); MONOCYTES % (AUTO) 1 % (0-12); NEUTROPHILS # (AUTO) 30.6 10^3/uL (1.8-7.8); NEUTROPHILS % (AUTO) 94 % (42-75); PLATELET COUNT 224 10^3/uL (130-400)
[2022-07-29 04:08] LABS: WHITE BLOOD COUNT 32.4 10^3/uL (4.3-11.0)
[2022-07-29 04:27] LABS: CALCIUM 8.9 MG/DL (8.5-10.1); CREATININE SERUM 1.29 MG/DL (0.60-1.30); MAGNESIUM 2.1 MG/DL (1.6-2.4); PHOSPHORUS 5.7 MG/DL (2.3-4.7); POTASSIUM 4.7 MMOL/L (3.6-5.0)
[2022-07-29 04:45] LABS: ANISOCYTOSIS SLIGHT; BAND NEUTROPHILS 2 %; LYMPHOCYTES % (MANUAL) 4 %; MONOCYTES % (MANUAL) 1 %; NEUTROPHILS % (MANUAL) 93 %
[2022-07-29] MEDS: MAGNESIUM 1 GM/100 ML IVPB 100 ML IV SCH (04:52)
[2022-07-29] MEDS: POTASSIUM CL 10MEQ/50ML IVPB 50 ML IV SCH (04:52)
[2022-07-29] MEDS: KCL 20 MEQ TAB (K-DUR) PO SCH (04:52)
[2022-07-29] MEDS: PIPERACILLIN SODIUM/TAZOBACTAM 4.5 GM in NS (IVPB) 100 ML IV SCH ×3 (05:11→21:04)
[2022-07-29 09:44] LABS: ABG BASE EXCESS -1.5 MMOL/L (-2.5-2.5); ABG OXYGEN SATURATION 94 % (94-100); ABG PCO2 52 MMHG (35-45); ABG PO2 65 MMHG (79-93); ABG TCO2 25.9 MMOL/L (21.0-31.0)
[2022-07-29 09:46] LABS: ALLENS TEST YES-POS; INSPIRED O2 80%; VENTILATOR NO
[2022-07-29 09:47] LABS: PATIENT TEMP 36.3
[2022-07-29 09:48] LABS: ABG PH 7.29 (7.37-7.43)
[2022-07-29] MEDS: VASOPRESSIN INJECTION 20 UNIT in NS (IVPB) 100 ML IV SCH (10:00)
--- NOTE | 2022-07-29 10:13 | Tele-ICU Progress Note ---
Subjective Date Seen by a Provider: Jul 29, 2022 Time Seen by a Provider: 10:13 Sepsis Event Evaluation Height, Weight, BMI Height: 5'9.00" Weight: 170lbs. 0.0oz. 77.583876vq; 20.98 BMI Method:Estimated Focused Exam Lactate Level 07/28/22 13:45: Lactic Acid Level 1.98 07/28/22 18:38: Lactic Acid Level 1.47 Exam Exam Patient acknowledged, consented, and participated in this virtual visit which was conducted using real time audio/video Vital Signs Date Time Temp Pulse Resp B/P (MAP) Pulse Ox O2 Delivery O2 Flow Rate FiO2 07/29/22 10:00 100 Vapotherm 40.00 70 07/29/22 09:00 87 18 135/58 (83) 100 Vapotherm 40.00 90.00 07/29/22 08:35 16 100 Vapotherm 40.00 90.00 07/29/22 08:09 100 Vapotherm 40.00 100 07/29/22 08:06 Vapotherm 40.00 100.00 07/29/22 08:00 36.4 07/29/22 08:00 93 30 132/54 (80) 88 Vapotherm 40.00 60.00 07/29/22 07:30 91 07/29/22 07:00 81 22 117/58 (77) 100 Vapotherm 40.00 60.00 07/29/22 07:00 100 Vapotherm 40.00 40 07/29/22 06:56 100 Vapotherm 40.00 60 07/29/22 06:00 83 23 138/69 (91) 100 Vapotherm 40.00 60.00 07/29/22 05:00 84 28 151/66 (94) 97 Vapotherm 40.00 60.00 07/29/22 04:00 Vapotherm 40.00 60 07/29/22 04:00 87 18 128/58 (78) 96 Vapotherm 40.00 60.00 07/29/22 04:00 35.9 07/29/22 03:00 79 16 154/64 (96) 97 Vapotherm 40.00 60.00 07/29/22 02:48 95 Vapotherm 40.00 60 07/29/22 02:00 77 23 139/62 (88) 97 Vapotherm 40.00 60.00 07/29/22 01:00 78 24 151/70 (100) 97 Vapotherm 40.00 60.00 07/29/22 01:00 78 07/29/22 00:21 36.2 07/29/22 00:00 Vapotherm 40.00 60 07/29/22 00:00 79 21 129/59 (88) 95 Vapotherm 40.00 60.00 07/28/22 23:00 80 25 118/56 (82) 95 Vapotherm 40.00 60.00 07/28/22 22:00 81 27 104/48 (65) 94 Vapotherm 40.00 60.00 07/28/22 21:19 96 Vapotherm 40.00 60 07/28/22 21:00 74 21 139/58 (90) 96 Vapotherm 40.00 60.00 07/28/22 20:00 36.3 Vapotherm 40.00 60.00 07/28/22 20:00 Vapotherm 40.00 60 07/28/22 20:00 75 9 134/51 (80) 97 Vapotherm 40.00 60.00 07/28/22 19:29 96 Vapotherm 40.00 60 07/28/22 19:28 35.9 74 96 60 07/28/22 19:00 78 07/28/22 19:00 78 22 138/56 (81) 96 Vapotherm 40.00 60.00 07/28/22 18:00 77 12 129/53 (76) 94 Vapotherm 40.00 07/28/22 17:35 77 125/56 98 Vapotherm 07/28/22 17:30 Vapotherm 40.00 60 07/28/22 17:30 36.6 77 22 138/63 (88) 97 Vapotherm 40.00 07/28/22 16:09 96 Vapotherm 40.00 60 07/28/22 16:08 96 Vapotherm 40.00 60 07/28/22 15:36 95 Nasal Cannula 4.00 07/28/22 15:35 95 Nasal Cannula 4.00 07/28/22 13:35 96 Nasal Cannula 4.00 07/28/22 13:35 35.9 74 122/64 (83) 96 Nasal Cannula 4.00 I & O 07/29/22 07:00 Intake Total 700 ml Output Total 535 ml Balance 165 ml Height & Weight Height: 5'9.00" Weight: 170lbs. 0.0oz. 77.542112mm; 20.98 BMI Method:Estimated General Appearance: No Apparent Distress, WD/WN HEENT: PERRL/EOMI Neck: Non Tender, Supple Respiratory: Crackles (Throughout both lung kilgore); No Wheezing Cardiovascular: Regular Rate, Rhythm, No Murmur Capillary Refill: Less Than 3 Seconds Extremity: Pedal Edema (3+ edema to above knees bilateral) Neurologic/Psychiatric: Other (Patient will wake to answer name but really does not otherwise answer questions. Seems quite lethargic and weak.) Skin: Normal Color, Warm/Dry Results Lab Laboratory Tests 07/28/22 13:45 07/29/22 03:43 TARAH COLINDRES MD Jul 29, 2022 10:13
[2022-07-29] MEDS: PANTOPRAZOLE 40 MG (PROTONIX) VIAL IV SCH (10:32)
[2022-07-29] MEDS: VANCOMYCIN 1 GM/NS 250 ML IVPB IV SCH ×2 (10:52)
[2022-07-29] MEDS ORDERED: CATHETER FLUSH 10 ML SYR IVP PRN (11:00)
[2022-07-29] MEDS: NS IV 1000 ML 1,000 ML IV SCH (13:50)
--- NOTE | 2022-07-29 15:13 | History & Physical-Hospitalist ---
History of Present Illness HPI/Chief Complaint Khanh Hassan III is an 82 year old male with PMH HTN, HLD, CAD, hypothyroidism, BPH, newly diagnosed metastatic neuroendocrine tumor of the liver/lung/brain, who presented with altered mental status. He was brought in by family. He is unable to provide any history. He was recently diagnosed with metastatic neuroendocrine tumor of the lung/liver/brain but has not started treatment yet. He was recently admitted with postobstructive pneumonia after failing outpatient antibiotics. Source: family, RN/MD Exam Limitations: clinical condition Date Seen 07/29/22 Time Seen by a Provider: 09:10 Attending Physician Néstor Augustine MD PCP Admitting Physician: Dorothy Lucas MD Attending Physician: Miriam Aguilar MD Referring Physician Date of Admission Jul 28, 2022 at 17:26 Home Medications & Allergies Home Medications Reviewed patient Home Medication Reconciliation performed by pharmacy medication reconciliations electronics maintenance technician and/or nursing. Patients Allergies have been reviewed. Allergies Allergies Coded Allergies No Known Drug Allergies (Unverified11/15/11) Past Xikffjj-Ovogxc-Kbhzdy Hx Patient Social History Marrital Status: Tobacco Use?: Yes Smoking Status: Current Everyday Smoker Substance use?: No Alcohol Use?: No Pt feels they are or have been: No Immunizations Up To Date Date of Influenza Vaccine: Feb 25, 2022 First/Initial COVID19 Vaccinat: YES Second COVID19 Vaccination Nakul: YES Tetanus Booster (TDap): Less Than 5 Years Date of Pneumonia Vaccine: Apr 06, 2018 Current Status Advance Directives: No Communicates: Verbally Primary Language: Kazakh Preferred Spoken Language: Kazakh Sensory deficits: Vision impairment, Hearing impairment Implanted or Applied Medical D: Orthopedic hardware, Stents Past Medical History Surgeries: Abdominal, Appendectomy, Bowel Surgery, Cardiac, Coronary Stent, Orthopedic Currently Using CPAP: No Currently Using BIPAP: No Chronic Edema/Swelling, Coronary Artery Disease, High Cholesterol, Hypertension, Peripheral Vascular Benign Prostatic Hyperpl Degenerate Disk Disease, Chronic Back Pain Brain, Liver, Lung, Colon Did You Recieve Any Treatments: Yes What Type of Treatment Did You: Surgical Intervention Blood Disorders: Yes (ANEMIA) Family Medical History Reviewed Nursing Family Hx No Pertinent Family Hx SOCIAL HISTORY: -SMOKED 1 PPD, QUIT -ETOH--OCCASIONAL USE -DRUGS--DENIES USE PAST SURGICAL HISTORY: - APPENDECTOMY -"STOMACH" SURGERY 1991 - BACK SURGERY 2003 - COLON RESECTION FOR CANCER 2005 - RIGHT CAROTID ENDARTERECTOMY 2005 - NECK SURGERY 2007 HX COLON PERFORATION 1994 -EGD'S AND COLONOSCOPIES CARDIAC CATH 08/27/[address] CASTILLO: CONCLUSIONS: 1. Severe mid LAD stenosis treated successfully with a drug-eluting stent. 2. At least moderate diffuse disease in the RCA with negative FFR therefore PCI was deferred. 3. Dual antiplatelet therapy, aggressive secondary prevention measures. 4. Sfny-ef-jpfobeyn bilateral PAD. STRESS TEST 05/14/[address] ZENDEJAS 1. Patient tolerated Lexiscan well 2. Diaphragmatic attenuation with fixed defect involving the inferior apical segment and inferior wall with no significant ischemia or infarction on SPECT images 3. Normal left ventricular size, EF 65 Review of Systems ROS-Unable to Obtain: obtunded Constitutional: see HPI Physical Exam Physical Exam Vital Signs Vital Signs - First Documented 07/28/22 07/28/22 16:08 17:30 Resp 22 FiO2 60 Capillary Refill : Less Than 3 Seconds Height, Weight, BMI Height: 5'9.00" Weight: 170lbs. 0.0oz. 77.958699uy; 20.98 BMI Method:Estimated General Appearance: WD/WN, Mild Distress (uncomfortable, moaning at times) Neck: Normal Inspection, Supple Respiratory: Crackles, Decreased Breath Sounds, Respiratory Distress (wearing Vapotherm) Cardiovascular: Regular Rate, Rhythm, No Murmur Gastrointestinal: Normal Bowel Sounds, Soft Extremity: No Inflammation; Pedal Edema Neurologic/Psychiatric: Other (obtunded, does not respond to sternal rub, opens eyes and says hello once but immediately falls asleep again) Skin: Warm/Dry, Pallor Results Results/Procedures Labs Laboratory Tests 07/28/22 13:45 07/29/22 03:43 Patient resulted labs reviewed. 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 Acute encephalopathy Poor prognosis Goals of care discussion Minimally responsive ABG with persistent hypercapnic respiratory failure CXR with recurrent, persistent right postobstructive pneumonia Vanc and Zosyn TeleICU consulted Vapotherm Palliative care consulted Discussed diagnosis, prognosis, treatment options and daughter agree, transition to DNR/DNI, considering transition to comfort measures only Critical Care Critically Ill Patient Diagnosis/Problems Diagnosis/Problems (1) Acute respiratory failure with hypoxia and hypercarbia Status: Acute (2) Postobstructive pneumonia Status: Acute (3) Sepsis Status: Acute Qualifiers: Sepsis acute organ dysfunction status: with acute organ dysfunction Severe sepsis acute organ dysfunction type: acute respiratory failure Acute respiratory failure type: with hypercapnia Severe sepsis shock status: without septic shock (4) Neuroendocrine carcinoma metastatic to multiple sites Status: Acute MIRIAM AGUILAR MD Jul 29, 2022 15:13
[2022-07-30] MEDS: RT-IPRATROPIUM (ATROVENT) 0.5MG/2.5ML AMP IH SCH ×3 (02:26→11:30)
[2022-07-30] MEDS: RT-ALBUTEROL SULF 2.5 MG/3 ML PRE-MIX VIAL INH SCH ×3 (02:26→11:30)
[2022-07-30] MEDS ORDERED: TROUGH ORDER-PHARMACY XX NR (03:00)
[2022-07-30] MEDS: KCL 20 MEQ TAB (K-DUR) PO SCH (03:07)
[2022-07-30 03:17] LABS: MAGNESIUM 2.3 MG/DL (1.6-2.4); PHOSPHORUS 4.2 MG/DL (2.3-4.7)
[2022-07-30] MEDS: MAGNESIUM 1 GM/100 ML IVPB 100 ML IV SCH (03:20)
[2022-07-30 03:25] LABS: VANCOMYCIN,TROUGH 12.3 UG/ML (10.0-20.0)
[2022-07-30] MEDS: VANCOMYCIN 1 GM/NS 250 ML IVPB IV SCH ×2 (03:27)
[2022-07-30 03:37] LABS: CALCIUM 9.1 MG/DL (8.5-10.1); CREATININE SERUM 1.48 MG/DL (0.60-1.30); POTASSIUM 4.4 MMOL/L (3.6-5.0)
[2022-07-30] MEDS: POTASSIUM CL 10MEQ/50ML IVPB 50 ML IV SCH (03:41)
[2022-07-30] MEDS: PIPERACILLIN SODIUM/TAZOBACTAM 4.5 GM in NS (IVPB) 100 ML IV SCH (05:06)
[2022-07-30 07:37] LABS: BASOPHILS # (AUTO) 0.1 10^3/uL (0.0-0.1); BASOPHILS % (AUTO) 0 % (0-10); EOSINOPHILS % (AUTO) 0 % (0-10); HEMATOCRIT 33 % (40-54); HEMOGLOBIN 10.8 g/dL (13.3-17.7); LYMPHOCYTES # (AUTO) 0.6 10^3/uL (1.0-4.0); LYMPHOCYTES % (AUTO) 2 % (12-44); MEAN CORPUSCULAR HEMOGLOBIN 32 pg (25-34); MEAN CORPUSCULAR HGB CONC 32 g/dL (32-36); MEAN CORPUSCULAR VOLUME 100 fL (80-99); MEAN PLATELET VOLUME 10.5 fL (9.0-12.2); MONOCYTES # (AUTO) 0.9 10^3/uL (0.0-1.0); MONOCYTES % (AUTO) 2 % (0-12); NEUTROPHILS # (AUTO) 41.6 10^3/uL (1.8-7.8); NEUTROPHILS % (AUTO) 94 % (42-75); PLATELET COUNT 264 10^3/uL (130-400)
[2022-07-30 07:46] LABS: WHITE BLOOD COUNT 44.1 10^3/uL (4.3-11.0)
[2022-07-30 08:14] LABS: ANISOCYTOSIS SLIGHT; LYMPHOCYTES % (MANUAL) 1 %; MONOCYTES % (MANUAL) 2 %; NEUTROPHILS % (MANUAL) 97 %
[2022-07-30 08:15] LABS: MICROCYTOSIS SLIGHT
[2022-07-30] MEDS: PANTOPRAZOLE 40 MG (PROTONIX) VIAL IV SCH (08:29)
[2022-07-30] MEDS: NS IV 1000 ML 1,000 ML IV SCH ×2 (08:39→09:29)
[2022-07-30] MEDS ORDERED: morphine INJ 4 MG/ML 1 ML (VIAL/SYRINGE) ONE (13:02)
[2022-07-30] MEDS ORDERED: LORazepam INJ 2 MG/ML (ATIVAN) VIAL ONE (13:03)
[2022-07-30] MEDS: LORazepam INJ 2 MG/ML (ATIVAN) VIAL IVP PRN ×7 (13:06→23:29)
[2022-07-30] MEDS: morphine INJ 4 MG/ML 1 ML (VIAL/SYRINGE) IV PRN ×7 (13:06→23:29)
[2022-07-30] MEDS ORDERED: RT-ALBUTEROL/IPRATROPIUM 3 ML (DUONEB) VIAL INH PRN (13:15)
[2022-07-30] MEDS ORDERED: ACETAMINOPHEN 650 MG SUPP (TYLENOL) PR PRN (13:15)
[2022-07-30] MEDS ORDERED: BISACODYL 10 MG SUPP (DULCOLAX) PR PRN (13:15)
[2022-07-30] MEDS ORDERED: ONDANSETRON 4 MG/2 ML (SDV) Z0FRAN IVP PRN (13:15)
[2022-07-30] MEDS ORDERED: ARTIFICAL TEARS 0.4 ML UNIT DOSE (REFRESH PLUS) OU PRN (13:15)
[2022-07-30] MEDS ORDERED: PROMETHAZINE INJ 25 MG/ML (PHENERGAN) AMP IVP PRN (13:15)
[2022-07-30] MEDS ORDERED: SALIVA SUBSTITUTE 60 ML SPRAY(MOUTHKOTE) MM PRN (13:15)
--- NOTE | 2022-07-30 16:47 | Progress Note - Hospitalist ---
Subjective HPI/CC On Admission Date Seen by Provider: Jul 30, 2022 Time Seen by Provider: 09:45 Khanh Hassan III is an 82 year old male with PMH HTN, HLD, CAD, hypothyroidism, BPH, newly diagnosed metastatic neuroendocrine tumor of the liver/lung/brain, who presented with altered mental status. He was brought in by family. He is unable to provide any history. He was recently diagnosed with metastatic neuroendocrine tumor of the lung/liver/brain but has not started treatment yet. He was recently admitted with postobstructive pneumonia after failing outpatient antibiotics. Subjective/Events-last exam He remains unresponsive. He is restless and agitated. After another goals of care discussion, his family has decided to transition to comfort measures only status. Focused Exam Lactate Level 07/28/22 13:45: Lactic Acid Level 1.98 07/28/22 18:38: Lactic Acid Level 1.47 Objective Exam Vital Signs Vital Signs Date Time Temp Pulse Resp B/P (MAP) Pulse Ox O2 Delivery O2 Flow Rate FiO2 07/30/22 11:30 95 Vapotherm 30.00 50 07/30/22 08:00 102 10 154/75 (101) 07/30/22 05:18 36.7 Capillary Refill : Less Than 3 Seconds General Appearance: WD/WN, Moderate Distress (restless, agitated) Respiratory: No Respiratory Distress, Decreased Breath Sounds Cardiovascular: Regular Rate, Rhythm, No Murmur Gastrointestinal: Normal Bowel Sounds, Soft Extremity: No Inflammation; Pedal Edema Neurologic/Psychiatric: Other (unresponsive, agitated, restless) Skin: Normal Color, Warm/Dry Results/Procedures Lab Laboratory Tests 07/30/22 02:52 07/30/22 05:52 Patient resulted labs reviewed. 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 Acute encephalopathy Poor prognosis Goals of care discussion Comfort measures only status After another goals of care discussion, worsening despite treatment, family elected to transition to comfort measures only status Comfort care order set in place Transfer to medical floor Critical Care Critically Ill Patient Diagnosis/Problems Diagnosis/Problems (1) Acute respiratory failure with hypoxia and hypercarbia Status: Acute (2) Postobstructive pneumonia Status: Acute (3) Sepsis Status: Acute Qualifiers: Sepsis acute organ dysfunction status: with acute organ dysfunction Severe sepsis acute organ dysfunction type: acute respiratory failure Acute respiratory failure type: with hypercapnia Severe sepsis shock status: without septic shock (4) Neuroendocrine carcinoma metastatic to multiple sites Status: Acute (5) Unresponsive state Status: Acute (6) Poor prognosis Status: Acute (7) Goals of care, counseling/discussion Status: Acute (8) Comfort measures only status Status: Acute (9) End of life care Status: Acute MIRIAM AGUILAR MD Jul 30, 2022 16:47
[2022-07-31] MEDS: LORazepam INJ 2 MG/ML (ATIVAN) VIAL IVP PRN ×7 (07:33→19:40)
[2022-07-31] MEDS: morphine INJ 4 MG/ML 1 ML (VIAL/SYRINGE) IV PRN ×8 (07:33→22:49)
--- NOTE | 2022-07-31 12:08 | Progress Note - Hospitalist ---
Subjective HPI/CC On Admission Date Seen by Provider: Jul 31, 2022 Time Seen by Provider: 10:30 Khanh Hassan III is an 82 year old male with PMH HTN, HLD, CAD, hypothyroidism, BPH, newly diagnosed metastatic neuroendocrine tumor of the liver/lung/brain, who presented with altered mental status. He was brought in by family. He is unable to provide any history. He was recently diagnosed with metastatic neuroendocrine tumor of the lung/liver/brain but has not started treatment yet. He was recently admitted with postobstructive pneumonia after failing outpatient antibiotics. Subjective/Events-last exam He is in bed moaning. He appears uncomfortable. He opens his eyes but is not tracking. He does not speak. There is no family at the bedside. Focused Exam Lactate Level 07/28/22 13:45: Lactic Acid Level 1.98 07/28/22 18:38: Lactic Acid Level 1.47 Objective Exam Vital Signs Vital Signs Date Time Temp Pulse Resp B/P (MAP) Pulse Ox O2 Delivery O2 Flow Rate FiO2 07/31/22 06:09 95 Nasal Cannula 4.00 07/30/22 11:30 50 07/30/22 08:00 102 10 154/75 (101) 07/30/22 05:18 36.7 Capillary Refill : Less Than 3 Seconds General Appearance: WD/WN, Moderate Distress (moaning) Respiratory: Crackles, Decreased Breath Sounds, Respiratory Distress (tachypnea) Cardiovascular: Regular Rate, Rhythm, No Murmur Gastrointestinal: Soft; No Distended Extremity: Normal Inspection, No Pedal Edema Neurologic/Psychiatric: Other (lethargic, moaning, uncomfortable, aphasia) Skin: Normal Color, Warm/Dry Results/Procedures Lab Patient resulted labs reviewed. 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 Acute encephalopathy Poor prognosis Goals of care discussion Comfort measures only status Transitioned to comfort measures only status 07/30 Comfort care order set in place Plan discussed with palliative care and nurse Critical Care Critically Ill Patient Diagnosis/Problems Diagnosis/Problems (1) Acute respiratory failure with hypoxia and hypercarbia Status: Acute (2) Postobstructive pneumonia Status: Acute (3) Sepsis Status: Acute Qualifiers: Sepsis acute organ dysfunction status: with acute organ dysfunction Severe sepsis acute organ dysfunction type: acute respiratory failure Acute respiratory failure type: with hypercapnia Severe sepsis shock status: without septic shock (4) Neuroendocrine carcinoma metastatic to multiple sites Status: Acute (5) Unresponsive state Status: Acute (6) Poor prognosis Status: Acute (7) Goals of care, counseling/discussion Status: Acute (8) Comfort measures only status Status: Acute (9) End of life care Status: Acute MIRIAM AGUILAR MD Jul 31, 2022 12:08
[2022-07-31] MEDS: GLYCOPYRROLATE 0.2 MG/ML (ROBINUL) 2 ML VIAL IV PRN (22:48)
[2022-08-01] MEDS: morphine INJ 4 MG/ML 1 ML (VIAL/SYRINGE) IV PRN ×4 (02:44→13:28)
[2022-08-01] MEDS: GLYCOPYRROLATE 0.2 MG/ML (ROBINUL) 2 ML VIAL IV PRN ×3 (02:44→19:58)
[2022-08-01] MEDS: LORazepam INJ 2 MG/ML (ATIVAN) VIAL IVP PRN ×4 (05:41→19:58)
[2022-08-01] MEDS ORDERED: morphine INJ 4 MG/ML 1 ML (VIAL/SYRINGE) IVP NR (10:30)
--- NOTE | 2022-08-01 19:08 | Progress Note - Hospitalist ---
Subjective HPI/CC On Admission Date Seen by Provider: Aug 01, 2022 Time Seen by Provider: 09:35 Khanh Hassan III is an 82 year old male with PMH HTN, HLD, CAD, hypothyroidism, BPH, newly diagnosed metastatic neuroendocrine tumor of the liver/lung/brain, who presented with altered mental status. He was brought in by family. He is unable to provide any history. He was recently diagnosed with metastatic neuroendocrine tumor of the lung/liver/brain but has not started treatment yet. He was recently admitted with postobstructive pneumonia after failing outpatient antibiotics. Subjective/Events-last exam He is unresponsive. He is tachypnic. His brow is furrowed. Objective Exam Vital Signs Vital Signs Date Time Temp Pulse Resp B/P (MAP) Pulse Ox O2 Delivery O2 Flow Rate FiO2 08/01/22 08:00 Nasal Cannula 2.00 07/31/22 08:00 95 07/30/22 11:30 50 07/30/22 08:00 102 10 154/75 (101) 07/30/22 05:18 36.7 Capillary Refill : Less Than 3 Seconds General Appearance: WD/WN, Moderate Distress (uncomfortable, tachypnic) Respiratory: Crackles, Respiratory Distress (tachpnea) Cardiovascular: No Murmur, Tachycardia Gastrointestinal: Soft; No Distended Extremity: No Inflammation; Pedal Edema Neurologic/Psychiatric: Other (unresponsive) Skin: Warm/Dry; No Mottled Results/Procedures Lab Patient resulted labs reviewed. 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 Acute encephalopathy Poor prognosis Goals of care discussion Comfort measures only status Transitioned to comfort measures only status 07/30 Comfort care order set in place Palliative care following Critical Care Critically Ill Patient Diagnosis/Problems Diagnosis/Problems (1) Acute respiratory failure with hypoxia and hypercarbia Status: Acute (2) Postobstructive pneumonia Status: Acute (3) Sepsis Status: Acute Qualifiers: Sepsis acute organ dysfunction status: with acute organ dysfunction Severe sepsis acute organ dysfunction type: acute respiratory failure Acute respiratory failure type: with hypercapnia Severe sepsis shock status: without septic shock (4) Neuroendocrine carcinoma metastatic to multiple sites Status: Acute (5) Unresponsive state Status: Acute (6) Poor prognosis Status: Acute (7) Goals of care, counseling/discussion Status: Acute (8) Comfort measures only status Status: Acute (9) End of life care Status: Acute MIRIAM AGUILAR MD Aug 01, 2022 19:08
[2022-08-02] MEDS: morphine INJ 4 MG/ML 1 ML (VIAL/SYRINGE) IV PRN ×4 (00:35→10:05)
[2022-08-02] MEDS: GLYCOPYRROLATE 0.2 MG/ML (ROBINUL) 2 ML VIAL IV PRN ×3 (01:18→10:05)
[2022-08-02] MEDS: LORazepam INJ 2 MG/ML (ATIVAN) VIAL IVP PRN ×3 (01:18→10:48)
--- NOTE | 2022-08-02 11:53 | Discharge Summary ---
Discharge Summary Hospital Course Problems/Dx: (1) Acute respiratory failure with hypoxia and hypercarbia Status: Acute (2) Postobstructive pneumonia Status: Acute (3) Sepsis Status: Acute Qualifiers: (4) Neuroendocrine carcinoma metastatic to multiple sites Status: Acute (5) Unresponsive state Status: Acute (6) Poor prognosis Status: Acute (7) Goals of care, counseling/discussion Status: Acute (8) Comfort measures only status Status: Acute (9) End of life care Status: Acute Hospital Course Date of Admission: Jul 28, 2022 at 17:26 Admission Diagnosis : Severe sepsis due to recurrent postobstructive pneumonia related to metastatic neuroendocrine tumor of the lung/liver/brain Family Physician/Provider: Aleks Augustine MD Date of Discharge: 08/02/22 Discharge Diagnosis: Severe sepsis due to recurrent postobstructive pneumonia related to metastatic neuroendocrine tumor of the lung/liver/brain Hospital Course: Khanh Hassan (Butch) was an 82 year old male with 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 He was recently discharged after being treated for a pneumonia. He had not yet began chemotherapy. He had acute respiratory failure. He was unresponsive. He continued to worsen despite aggressive care with fluids, antibiotics, and oxygen. His WBC continued to increase, his kidneys began to fail, and he remained unresponsive. His family elected to transition to comfort measures only status. He subsequently on 08/02/2022 at 1101. Labs and Pending Lab Test: Microbiology 07/28/22 MRSA Screen - Final, Complete MRSA not isolated 07/28/22 Urine Culture - Preliminary, Resulted NO GROWTH 07/28/22 Blood Culture - Preliminary, Resulted No growth Home Meds Active Amox Tr-K Clv 875-125 mg Tab (Amoxicillin/Potassium Clav) 875 Mg-125 Mg Tablet 1 Each PO BID Reported Flomax (Tamsulosin HCl) 0.4 Mg Cap 0.4 Mg PO HS Breztri Aerosphere Inhaler (Budesonide/Glycopyr/Formoterol) 160 Mcg-9 Mcg-4.8 Mcg/Actuation Hfa.aer.ad 1 Puff INH BID Temazepam 15 Mg Capsule 15 Mg PO HS PRN Rosuvastatin Calcium 40 Mg Tablet 40 Mg PO DAILY Etodolac 400 Mg Tablet 400 Mg PO PRN Lomotil 2.5-0.025 mg Tablet (Diphenoxylate HCl/Atropine) 1 Each Tablet 1 Each PO DAILY PRN PRN HYDROcodone/APAP 10/325 TABLET (Acetaminophen/Hydrocodone Bitart) 1 Each Tablet 1 Tab PO Q6H PRN MDD 5 Assessment/Pt Instructions Patient Discharge Physical Examination Vital Signs Vital Signs Date Time Temp Pulse Resp B/P (MAP) Pulse Ox O2 Delivery O2 Flow Rate FiO2 08/01/22 20:00 Nasal Cannula 2.00 07/31/22 08:00 95 07/30/22 11:30 50 07/30/22 08:00 102 10 154/75 (101) 07/30/22 05:18 36.7 Allergies: Coded Allergies: No Known Drug Allergies (Unverified , 11/15/11) Copy Copies To 1: ALEKS AUGUSTINE MD Copies To 2: ALBAN MOREIRA Discharge Summary Date of Admission Jul 28, 2022 at 17:26 Date of Discharge Discharge Date: Aug 02, 2022 Discharge Time: 11:01 Admission Diagnosis Acute respiratory failure with hypoxia and hypercapnia Comfort Measures/ End of Life Care: Comfort Measures Date of : Aug 02, 2022 Time of : 11:01 Discharge Diagnosis Acute respiratory failure with hypoxia and hypercapnia Severe sepsis Postobstructive pneumonia, recurrent Metastatic neuroendocrine tumor of the lung to the liver and brain Acute encephalopathy Poor prognosis Goals of care discussion Comfort measures only status (1) Acute respiratory failure with hypoxia and hypercarbia Status: Acute (2) Postobstructive pneumonia Status: Acute (3) Sepsis Status: Acute Qualifiers: (4) Neuroendocrine carcinoma metastatic to multiple sites Status: Acute (5) Unresponsive state Status: Acute (6) Poor prognosis Status: Acute (7) Goals of care, counseling/discussion Status: Acute (8) Comfort measures only status Status: Acute (9) End of life care Status: Acute MIRIAM AGUILAR MD Aug 02, 2022 11:51
== END 2022-08-02 13:45 | disposition expired | DRG 871 ==
LOC: EDUNIT# 13:33 → ER 13:34 → ICU 17:26 → CSD 07-29 12:13 → 4TH 07-30 13:41
PROVIDERS: ADMIT Family Medicine; ATTEND Internal Medicine
PROC: 5A0945A Assistance with Respiratory Ventilation, 24-96 Consecutive Hours, High Flow/Velocity Cannula (ICD-10-PCS; principal; 2022-07-28)
DX: A41.9 Sepsis, unspecified organism (principal); J18.9 Pneumonia, unspecified organism; J96.02 Acute respiratory failure with hypercapnia; J96.01 Acute respiratory failure with hypoxia; C7A.8 Other malignant neuroendocrine tumors; C7B.8 Other secondary neuroendocrine tumors; G93.40 Encephalopathy, unspecified; Z66 Do not resuscitate; Z51.5 Encounter for palliative care; R65.20 Severe sepsis without septic shock; I25.10 Atherosclerotic heart disease of native coronary artery without angina pectoris; R40.4 Transient alteration of awareness; E78.00 Pure hypercholesterolemia, unspecified; I10 Essential (primary) hypertension; N40.0 Benign prostatic hyperplasia without lower urinary tract symptoms; E03.9 Hypothyroidism, unspecified; H91.90 Unspecified hearing loss, unspecified ear; H54.7 Unspecified visual loss; Z95.5 Presence of coronary angioplasty implant and graft; Z85.038 Personal history of other malignant neoplasm of large intestine; Z87.891 Personal history of nicotine dependence
CPT/HCPCS: 36415; 36600; 51702; 70450; 70553; 71045; 80048; 80053; 80202; 81000; 82805; 83605; 83735; 83880; 84100; 84484; 85007; 85027; 85610; 85730; 86141; 87040; 87081; 87088; 93005; 93041; 94640; 94760; 96365; 96367; 96368; 96375